=== PATIENT | male | born 1965 | race Caucasian/White ===

== ENCOUNTER 2017-05-09 17:44 | Emergency (ER) | payer MEDICAID ==
[~2017-05-09] VITALS: Ht 182.9 cm; Wt 84.4 kg
[2017-05-09 18:00] VITALS: BP 146/98
[2017-05-09] MEDS ORDERED: BACITRACIN TOP OINT 1 UD PKG TOP ONE (21:30)
[2017-05-09] MEDS ORDERED: LIDOCAINE 1% HCL (LOCAL ANESTH.) INJ 20ML MDV IJ ONE (21:30)
[2017-05-09] MEDS ORDERED: TETANUS-DIPTH-ACEL PERTUSSIS 0.5ML SYRG IM ONE (21:30)
[2017-05-09] MEDS ORDERED: HYDROcodone-ACET 10/325MG TAB PO ONE (22:15)
== END 2017-05-09 23:26 | disposition home or self-care (01) ==
LOC: ER 17:44
DX: S01.01XA Laceration without foreign body of scalp, initial encounter (principal); S00.93XA Contusion of unspecified part of head, initial encounter; Z88.0 Allergy status to penicillin; V27.4XXA Motorcycle driver injured in collision with fixed or stationary object in traffic accident, initial encounter; Y93.89 Activity, other specified; Y99.8 Other external cause status; Y92.410 Unspecified street and highway as the place of occurrence of the external cause
CPT/HCPCS: 12004; 70450; 90471; 90715; 99284; J2001

== ENCOUNTER 2019-05-01 20:53 | Inpatient (IN) | payer MEDICAID ==
[~2019-05-01] VITALS: Ht 182.9 cm; Wt 73.7 kg
[2019-05-01] MEDS ORDERED: SODIUM CHLORIDE 0.9% 1,000 ML IV ONE ×2 (21:26→22:15)
[2019-05-01] MEDS ORDERED: InsuLIN REG 1unit/0.01ml Soln (100units/ml) IV ONE (22:15)
[2019-05-01 22:19] LABS: Basophils # (auto) 0 uL; Basophils % (auto) 0.4 % (0.0-2.0); Eosinophils # (auto) 0.1 uL; Eosinophils % (auto) 0.7 % (0.0-7.0); Hematocrit 42.6 % (41.0-53.0); Hemoglobin 14.8 g/dL (13.5-17.5); Lymphocytes # (auto) 1.1 uL; Lymphocytes % (auto) 14.3 % (10.0-50.0); Mean Corpuscular Hemoglobin 30.9 pg (28.0-32.0); Mean Corpuscular Hgb Conc. 34.7 g/dL (32.0-36.0); Mean Corpuscular Volume 88.9 fL (80.0-100.0); Monocytes # (auto) 0.8 uL; Monocytes % (auto) 9.8 % (0.0-12.0); Neutrophils # (auto) 5.9 uL; Neutrophils % (auto) 74.8 % (37.0-80.0); Platelet Count (auto) 144 10^3/uL (140-450); Red Blood Cells 4.79 10^6/uL (4.5-5.90); Red Cell Distribution Width 12.6 % (11.8-14.3); White Blood Cell 7.9 10^3/uL (4.4-10.8)
[2019-05-01 22:25] LABS: Urine Bacteria NONE SEEN /hpf (None Seen); Urine Blood Negative /uL (Negative); Urine Specific Gravity 1.033 (1.001-1.035); Urine WBC <1 /hpf (0 - 3)
[2019-05-01 22:33] LABS: Albumin 3.4 g/dL (3.4-5.0); Calcium 8.3 mg/dL (8.5-10.1); Potassium 4.1 mmol/L (3.5-5.1)
[2019-05-01 22:36] LABS: Bilirubin, Total 0.5 mg/dL (0.2-1.0); Total Protein 7.4 g/dL (6.4-8.2)
[2019-05-01 22:56] LABS: BUN/Creatinine Ratio 17.5
[2019-05-02] MEDS ORDERED: SODIUM CHLORIDE 0.9% 1,000 ML IV ONE ×2 (00:45→13:00)
[2019-05-02] MEDS ORDERED: ACETAMINOPHEN 500 MG TAB PO ONE (01:00)
[2019-05-02 01:44] LABS: Amylase 59 U/L (25-115); Blood Alcohol < 3.0 mg/dL (0-5); Lipase 403 U/L (73-393)
[2019-05-02] MEDS ORDERED: ONDANSETRON HCL 4 MG/2 ML VIAL IV PRN (06:45)
[2019-05-02] MEDS ORDERED: DEXTROSE (50%) 50ML SYRG IV PRN ×2 (06:45→12:30)
[2019-05-02] MEDS ORDERED: TEMAZEPAM 15 MG CAP PO PRN (06:45)
[2019-05-02] MEDS ORDERED: SODIUM CHLORIDE 0.9% 1,000 ML IV SCH (06:45)
[2019-05-02 07:09] LABS: Calcium 8.1 mg/dL (8.5-10.1); Potassium 3.7 mmol/L (3.5-5.1)
[2019-05-02 07:13] LABS: BUN/Creatinine Ratio 17.5
[2019-05-02] MEDS: ACCU-CHEK COMFORT CURVE STRIP VI SCH ×4 (08:00→21:37)
--- NOTE | 2019-05-02 09:15 | NUR ---
MS admit from ER JENY LAW admitted to tele/MS after SBAR received. Patient oriented to DEON RENNER RN primary RN, unit, room, bed, and unit policies regarding patient care and visiting hours. Patient weighed by bedscale and encouraged to call if they need something. All questions and concerns addressed, patient verbalized understanding.
[2019-05-02] MEDS ORDERED: GLIP5TAB12 PO (09:27)
[2019-05-02] MEDS ORDERED: INS7030I SC (09:27)
[2019-05-02] MEDS ORDERED: METF-370 PO (09:27)
[2019-05-02 09:30] VITALS: BP 149/91
[2019-05-02] MEDS: FAMOTIDINE 20 MG TAB PO SCH ×2 (09:40→21:37)
[2019-05-02] MEDS: InsuLIN REG 1unit/0.01ml Soln (100units/ml) SC SCH ×4 (09:40→21:37)
[2019-05-02] MEDS ORDERED: ASCORBIC ACID 500 MG TAB PO ONE (12:30)
[2019-05-02] MEDS ORDERED: LORATADINE 10 MG TAB PO ONE (12:30)
[2019-05-02] MEDS ORDERED: LOSARTAN POTASSIUM 25 MG TAB PO ONE (12:30)
[2019-05-02 13:00] VITALS: BP 142/82
[2019-05-02] MEDS ORDERED: LEVOFLOXACIN 750MG 150 ML IV ONE (13:45)
[2019-05-02 15:25] LABS: Alcohol, Urine < 3.0 mg/dL (0-5); Amphetamine Screen, Urine POSITIVE (NEGATIVE); Barbiturate Scree,Urine NEGATIVE (NEGATIVE); Benzodiazephine Screen, Urine NEGATIVE (NEGATIVE); Cannabinoid Screen, Urine NEGATIVE (NEGATIVE); Cocaine Screen, Urine NEGATIVE (NEGATIVE); Opiate Scree,Urine NEGATIVE (NEGATIVE); Phencyclidine Screen, Urine NEGATIVE (NEGATIVE)
[2019-05-02 15:39] LABS: Urine Bacteria NONE SEEN /hpf (None Seen); Urine Blood Negative /uL (Negative); Urine Specific Gravity 1.029 (1.001-1.035); Urine WBC 1 /hpf (0 - 3)
[2019-05-02] MEDS: ACETAMINOPHEN 325 MG TAB PO PRN (16:15)
--- NOTE | 2019-05-02 16:52 | NUR ---
PT AMA TO SMOKE PT SIGNED AMA TO SMOKE. PT EDUCATED ABOUT NEGATIVE OUTCOME CAUSED BY SMOKING. PT VERBALIZED UNDERSTANDING AND CONTINUED TO SIGN AMA. PT OFF UNIT TO SMOKE.
[2019-05-02 17:00] VITALS: BP 156/91
[2019-05-02] MEDS: glipiZIDE 5 MG TAB PO SCH (17:55)
[2019-05-02] MEDS: metFORMIN HYDROCHLORIDE 500 MG TAB PO SCH (17:55)
[2019-05-02] MEDS: INSULIN 70/30 1unit/0.01ml Susp (100units/ml) SC SCH (17:56)
--- NOTE | 2019-05-02 19:25 | NUR ---
Opening Shift Note Assumed care of patient, awake and alert. No S/S of distress/SOB or pain. Patient afebrile at the moment. Instructed on POC and to call for assist PRN, patient verbalizes understanding. Will continue to monitor for changes Q1hr and PRN.
[2019-05-02] MEDS: ASCORBIC ACID 500 MG TAB PO SCH (21:37)
[2019-05-02 22:00] VITALS: BP 139/78
[2019-05-03 05:00] VITALS: BP 140/83
[2019-05-03 05:16] LABS: BUN/Creatinine Ratio 17.4; Calcium 8.2 mg/dL (8.5-10.1); Potassium 3.5 mmol/L (3.5-5.1)
[2019-05-03] MEDS: InsuLIN REG 1unit/0.01ml Soln (100units/ml) SC SCH ×4 (06:26→21:53)
[2019-05-03] MEDS: ACCU-CHEK COMFORT CURVE STRIP VI SCH ×4 (06:26→21:53)
[2019-05-03] MEDS: glipiZIDE 5 MG TAB PO SCH ×2 (06:27→18:22)
[2019-05-03] MEDS: ACETAMINOPHEN 325 MG TAB PO PRN ×2 (06:28→18:55)
--- NOTE | 2019-05-03 06:30 | NUR ---
PATIENT C/O HEADACHE, RATING 6/10 AND DESCRIBING IT PRESSURE LIKE. WILL MEDICATE PER ORDER.
--- NOTE | 2019-05-03 07:40 | NUR ---
Patient in bed, awake, oriented x4. No acute distress noted. Patient is ambulatory.
[2019-05-03] MEDS: INSULIN 70/30 1unit/0.01ml Susp (100units/ml) SC SCH ×2 (08:10→18:22)
[2019-05-03] MEDS: metFORMIN HYDROCHLORIDE 500 MG TAB PO SCH ×2 (08:11→18:22)
[2019-05-03 08:15] VITALS: BP 140/88
--- NOTE | 2019-05-03 09:40 | NUR ---
Dr. Key came over. to discharge the patient tomorrow, Tuesday.
[2019-05-03] MEDS: LOSARTAN POTASSIUM 25 MG TAB PO SCH (09:51)
[2019-05-03] MEDS: ASCORBIC ACID 500 MG TAB PO SCH ×2 (09:51→21:53)
[2019-05-03] MEDS: LEVOFLOXACIN 750MG 150 ML IV SCH (09:51)
[2019-05-03] MEDS: LORATADINE 10 MG TAB PO SCH (09:51)
[2019-05-03] MEDS: FAMOTIDINE 20 MG TAB PO SCH ×2 (09:51→21:53)
[2019-05-03 13:00] VITALS: BP 120/71
[2019-05-03 17:13] VITALS: BP 137/81
--- NOTE | 2019-05-03 18:55 | NUR ---
Patient stated he has headache. Tylenol PO given for headache. Family member at bedside.
--- NOTE | 2019-05-03 19:26 | NUR ---
Opening Shift Note Assumed care of patient, awake and alert. No S/S of distress/SOB or pain. Instructed on POC and to call for assist PRN, will continue to monitor for changes Q1hr and PRN.
[2019-05-03 22:00] VITALS: BP 153/86
[2019-05-04 04:59] VITALS: BP 133/84
[2019-05-04] MEDS: ACCU-CHEK COMFORT CURVE STRIP VI SCH ×2 (06:35→11:30)
[2019-05-04] MEDS: glipiZIDE 5 MG TAB PO SCH (06:35)
[2019-05-04] MEDS: InsuLIN REG 1unit/0.01ml Soln (100units/ml) SC SCH ×2 (06:36→11:30)
[2019-05-04] MEDS: LEVOFLOXACIN 750MG 150 ML IV SCH (09:12)
[2019-05-04] MEDS: INSULIN 70/30 1unit/0.01ml Susp (100units/ml) SC SCH (09:13)
[2019-05-04] MEDS: LORATADINE 10 MG TAB PO SCH (09:14)
[2019-05-04] MEDS: FAMOTIDINE 20 MG TAB PO SCH (09:14)
[2019-05-04] MEDS: ASCORBIC ACID 500 MG TAB PO SCH (09:14)
[2019-05-04] MEDS: LOSARTAN POTASSIUM 25 MG TAB PO SCH (09:15)
[2019-05-04] MEDS: metFORMIN HYDROCHLORIDE 500 MG TAB PO SCH (09:17)
[2019-05-04 09:21] VITALS: BP 141/78
[2019-05-04] MEDS ORDERED: LOS25T PO (10:51)
[2019-05-04] MEDS ORDERED: GLIP5TAB12 PO (10:51)
[2019-05-04] MEDS ORDERED: METF500T PO (10:51)
[2019-05-04] MEDS ORDERED: LEVO-28 PO (10:55)
[2019-05-04 12:09] VITALS: BP 141/78
[2019-05-04 12:50] VITALS: BP 141/78
--- NOTE | 2019-05-04 13:10 | NUR ---
Discharge instructions given as ordered. Encourage to follow up with PMD as instructed. All questions and concerns addressed. Patient verbalized understanding. Medication reconciliation form completed and copy given to patient. IV removed with catheter intact, pressure dressing applied. Patient is ambulatory, steady gait noted, refused to be taken to vehicle via wheelchair, patient with all personal belongings, accompanied by family member. No distress noted at time of departure.
== END 2019-05-04 13:10 | disposition home or self-care (01) | DRG 139 ==
LOC: ER 20:53 → OVERFLOW 20:54 → WEST WING 05-02 08:55
PROVIDERS: ADMIT Nurse Practitioner; ATTEND Internal Medicine
DX: J18.9 Pneumonia, unspecified organism (principal); E11.65 Type 2 diabetes mellitus with hyperglycemia; R65.10 Systemic inflammatory response syndrome (SIRS) of non-infectious origin without acute organ dysfunction; I10 Essential (primary) hypertension; E86.0 Dehydration; F15.10 Other stimulant abuse, uncomplicated; F17.210 Nicotine dependence, cigarettes, uncomplicated; Z91.19 Patient's noncompliance with other medical treatment and regimen; Z83.3 Family history of diabetes mellitus; Z88.0 Allergy status to penicillin
CPT/HCPCS: 36415; 36600; 71046; 80048; 80053; 80307; 80320; 81001; 82010; 82150; 82805; 82962; 83036; 83690; 85025; 87040; 87804; 96361; 96374; G0378; J1815; J1956

== ENCOUNTER 2020-06-04 00:24 | Inpatient (IN) | payer MEDICAID ==
[~2020-06-04] VITALS: Ht 182.9 cm; Wt 69.5 kg
[~2020-06-04 00:24] MED LIST: GLIP5TAB12 PO; INS7030I SC; LEVO-28 PO; LOS25T PO; METF-370 PO; METF500T PO
[2020-06-04] MEDS ORDERED: SODIUM CHLORIDE 0.9% 2,000 ML IV ONE (01:00)
[2020-06-04] MEDS ORDERED: NALOXONE HCL 0.4 MG/ML VIAL IV ONE (01:00)
[2020-06-04 01:29] LABS: Basophils # (auto) 0 10 ^3/uL (0-0.2); Basophils % (auto) 0.4 % (0.0-2.0); Eosinophils # (auto) 0.1 10 ^3/uL (0-0.8); Hematocrit 48.2 % (41.0-53.0); Hemoglobin 16.6 g/dL (13.5-17.5); Lymphocytes # (auto) 1.6 10 ^3/uL (0.4-5.4); Lymphocytes % (auto) 25.2 % (10.0-50.0); Mean Corpuscular Hemoglobin 30.3 pg (28.0-32.0); Mean Corpuscular Hgb Conc. 34.4 g/dL (32.0-36.0); Mean Corpuscular Volume 88.1 fL (80.0-100.0); Monocytes # (auto) 0.5 10 ^3/uL (0-1.3); Monocytes % (auto) 7.8 % (0.0-12.0); Neutrophils # (auto) 4.1 10 ^3/uL (1.6-8.6); Neutrophils % (auto) 64.6 % (37.0-80.0); Nucleated Red Blood Cells % 0.2 %; Platelet Count (auto) 164 10^3/uL (140-450); Red Blood Cells 5.47 10^6/uL (4.5-5.90); Red Cell Distribution Width 12.8 % (11.8-14.3); White Blood Cell 6.3 10^3/uL (4.4-10.8)
[2020-06-04] MEDS ORDERED: InsuLIN REG 1unit/0.01ml Soln (100units/ml) IV ONE ×2 (01:30→05:00)
[2020-06-04 01:36] LABS: Urine Bacteria NONE SEEN /hpf (None Seen); Urine Blood Negative /uL (Negative); Urine Specific Gravity 1.033 (1.001-1.035); Urine WBC 1 /hpf (0 - 3)
[2020-06-04 02:03] LABS: Potassium 4.4 mmol/L (3.5-5.1)
[2020-06-04 02:13] LABS: BUN/Creatinine Ratio 18.6; Bilirubin, Total 0.5 mg/dL (0.2-1.0); Calcium 9.6 mg/dL (8.5-10.1); Total Protein 8.1 g/dL (6.4-8.2)
[2020-06-04 02:14] LABS: Cannabinoid Screen, Urine NEGATIVE (NEGATIVE); Phencyclidine Screen, Urine NEGATIVE (NEGATIVE)
[2020-06-04 02:26] LABS: Alcohol, Urine < 3.0 mg/dL (0-10); Amphetamine Screen, Urine POSITIVE (NEGATIVE); Barbiturate Scree,Urine NEGATIVE (NEGATIVE); Benzodiazephine Screen, Urine NEGATIVE (NEGATIVE); Cocaine Screen, Urine NEGATIVE (NEGATIVE); Opiate Scree,Urine NEGATIVE (NEGATIVE)
[2020-06-04] MEDS ORDERED: DEXTROSE (50%) 50ML SYRG IV PRN ×2 (02:45→09:00)
[2020-06-04] MEDS ORDERED: INSULIN LANTUS (GLARGINE) 1 /0.01ml (100units/ml) SC ONE (02:45)
[2020-06-04] MEDS ORDERED: InsuLIN R (HUMAN) 100 UNITS in SODIUM CHL 0.9% 99 ML IV SCH (02:45)
[2020-06-04] MEDS: ACCU-CHEK COMFORT CURVE STRIP VI SCH ×8 (03:12→21:05)
[2020-06-04] MEDS ORDERED: NALOXONE HCL 1MG/ML 2ML SYRINGE ONE (04:25)
[2020-06-04] MEDS ORDERED: NALOXONE HCL 1MG/ML 2ML SYRINGE IV ONE (04:30)
[2020-06-04] MEDS ORDERED: MORPHINE SULF INJ 2 MG/ML SYRINGE 1ML IV PRN (09:00)
[2020-06-04] MEDS ORDERED: NITROGLYCERIN 0.4 MG SL TAB SL PRN (09:00)
[2020-06-04] MEDS: SODIUM CHLORIDE 0.9% 1,000 ML IV SCH ×2 (09:23→16:42)
[2020-06-04] MEDS: MULTIPLE VITAMIN TAB PO SCH (09:31)
[2020-06-04] MEDS: THIAMINE HCL 100 MG TAB PO SCH (09:31)
[2020-06-04 10:26] LABS: Calcium 7.9 mg/dL (8.5-10.1); Magnesium 2.1 mg/dL (1.6-2.6); Potassium 3.9 mmol/L (3.5-5.1)
[2020-06-04 10:29] LABS: BUN/Creatinine Ratio 24.6; Phosphorus 2.9 mg/dL (2.5-4.90)
[2020-06-04 10:34] LABS: Folate (Folic Acid) 13.76 ng/mL (5.38-24)
[2020-06-04] MEDS ORDERED: LOSA25TA38 PO (10:46)
[2020-06-04] MEDS ORDERED: METF-929 PO ×2 (10:46→16:29)
[2020-06-04] MEDS ORDERED: GLIP10TA9 PO (10:46)
[2020-06-04] MEDS ORDERED: PIOG1TAB36 PO (10:46)
[2020-06-04] MEDS: InsuLIN REG 1unit/0.01ml Soln (100units/ml) SC SCH ×3 (12:25→21:05)
[2020-06-04] MEDS ORDERED: GLIP5TAB12 PO (16:29)
[2020-06-04] MEDS ORDERED: INSREG3 SC (16:29)
--- NOTE | 2020-06-04 16:40 | NUR ---
MS admit from ER JENY LAW admitted to tele/MS after SBAR received. Patient oriented to Rupali Bustamante, primary RN, unit, room, bed, and unit policies regarding patient care and visiting hours. Patient weighed by bedscale and encouraged to call if they need something. All questions and concerns addressed, patient verbalized understanding. Note:
[2020-06-04] MEDS ORDERED: INFLUENZA QUAD 2020-2021 0.5 ML SYRG IM ONE (16:45)
[2020-06-04 17:00] VITALS: BP 133/91
[2020-06-04 22:00] VITALS: BP 143/89
[2020-06-05] MEDS: InsuLIN REG 1unit/0.01ml Soln (100units/ml) SC SCH ×7 (00:08→23:53)
[2020-06-05] MEDS: ACCU-CHEK COMFORT CURVE STRIP VI SCH ×7 (00:09→23:53)
[2020-06-05] MEDS: SODIUM CHLORIDE 0.9% 1,000 ML IV SCH ×3 (01:00→17:54)
[2020-06-05 05:10] VITALS: BP 136/85
--- NOTE | 2020-06-05 07:31 | NUR ---
ASSUMED CARE OF PATIENT AWAKE AND ALERT. RESPIRATIONS EVEN AND UNLABORED AT THIS TIME. UPDATED PATIENT ON POC AND TO CALL FOR ASSISTANCE IF NEEDED. HOB ELEVATED AT LEAST 30 DEGREES, BED LOCKED IN LOWEST POSITION AND CALL LIGHT IS WITHIN REACH. WILL CONTINUE TO MONITOR.
--- NOTE | 2020-06-05 07:47 | NUR ---
END OF SHIFT NOTES WILL ENDORSE CARE TO DAY SHIFT RN. PT A0X4, NO S/S OF DISTRESS OR SOB
[2020-06-05 09:00] VITALS: BP 136/79
--- NOTE | 2020-06-05 09:40 | NUR ---
spoke with dr olson. Dr. olson verbalized that he put in orders for potassium as well as metformin for this patient. continue care.
[2020-06-05 09:43] LABS: Basophils # (auto) 0 10 ^3/uL (0-0.2); Basophils % (auto) 0.5 % (0.0-2.0); Eosinophils # (auto) 0.1 10 ^3/uL (0-0.8); Eosinophils % (auto) 1.9 % (0.0-7.0); Hematocrit 41.4 % (41.0-53.0); Hemoglobin 14.2 g/dL (13.5-17.5); Lymphocytes # (auto) 0.9 10 ^3/uL (0.4-5.4); Lymphocytes % (auto) 14.5 % (10.0-50.0); Mean Corpuscular Hemoglobin 30.3 pg (28.0-32.0); Mean Corpuscular Hgb Conc. 34.4 g/dL (32.0-36.0); Mean Corpuscular Volume 87.8 fL (80.0-100.0); Monocytes # (auto) 0.3 10 ^3/uL (0-1.3); Monocytes % (auto) 5.2 % (0.0-12.0); Neutrophils # (auto) 5.1 10 ^3/uL (1.6-8.6); Neutrophils % (auto) 77.9 % (37.0-80.0); Platelet Count (auto) 147 10^3/uL (140-450); Red Blood Cells 4.71 10^6/uL (4.5-5.90); Red Cell Distribution Width 12.7 % (11.8-14.3); White Blood Cell 6.5 10^3/uL (4.4-10.8)
[2020-06-05 09:59] LABS: Albumin 2.6 g/dL (3.4-5.0); Calcium 7.8 mg/dL (8.5-10.1); Potassium 3.8 mmol/L (3.5-5.1)
[2020-06-05 10:02] LABS: BUN/Creatinine Ratio 21.6; Bilirubin, Total 0.4 mg/dL (0.2-1.0); Total Protein 5.6 g/dL (6.4-8.2)
[2020-06-05] MEDS: THIAMINE HCL 100 MG TAB PO SCH (10:33)
[2020-06-05] MEDS: MULTIPLE VITAMIN TAB PO SCH (10:34)
[2020-06-05] MEDS: INSULIN LANTUS (GLARGINE) 1 /0.01ml (100units/ml) SC SCH (10:37)
--- NOTE | 2020-06-05 12:01 | NUR ---
DR MENDES PAGED REGARDING ORDER CLARIFICATION OF POTASSIUM ORDER. AWAITING CALL BACK.
--- NOTE | 2020-06-05 12:25 | NUR ---
DR MENDES CALLED BACK. VERBALIZED THAT HE IS AWARE OF THE POTASSIUM LEVEL AND THAT HE STILL WANTS THE ORDER FOR POTASSIUM.
[2020-06-05] MEDS ORDERED: POTASSIUM CHLORIDE 40 MEQ, LIDOCAINE 1% (LOCAL ANESTH.) 4 ML in SODIUM CHL 0.9% 250 ML IV ONE (12:30)
[2020-06-05 13:00] VITALS: BP 125/73
--- NOTE | 2020-06-05 14:04 | NUR ---
TORRES DISCONTINUED. PATIENT TOLERATED WELL. CONTINUE CARE.
--- NOTE | 2020-06-05 14:21 | NUR ---
D/C Planning Per social service consult for meth use. Patient accepted resources. Patient is a 54-year-old male who is alert and oriented. Prior to admission patient lived with his girlfriend Sylvia. Patient states he has been using meth for several years and has been trying to stop but it has not been easy. Patient will return home to his prior living arrangements post discharge and Sylvia will transport him home. Patient verbalize understanding d/c plan. Addendum: 06/05/20 at 1424 by KATE HERR Amended: Links added.
[2020-06-05 17:05] VITALS: BP 129/82
[2020-06-05] MEDS: metFORMIN HYDROCHLORIDE 500 MG TAB PO SCH (18:09)
--- NOTE | 2020-06-05 19:21 | NUR ---
ENDORSED CARE TO NOC SHIFT RN
--- NOTE | 2020-06-05 19:35 | NUR ---
Opening Shift Note Received report from Syd GUPTA. Assumed care of patient, awake and alert. No S/S of distress/SOB or pain. Patient states he already void after removal of Rebollar catheter. Instructed on POC and to call for assist PRN, will continue to monitor for changes Q1hr and PRN.
[2020-06-05 21:41] VITALS: BP 139/77
[2020-06-06] MEDS: SODIUM CHLORIDE 0.9% 1,000 ML IV SCH ×2 (01:40→10:22)
[2020-06-06] MEDS: ACCU-CHEK COMFORT CURVE STRIP VI SCH ×3 (04:02→12:26)
[2020-06-06] MEDS: InsuLIN REG 1unit/0.01ml Soln (100units/ml) SC SCH ×3 (04:03→12:28)
[2020-06-06 05:16] VITALS: BP 147/87
[2020-06-06 06:08] LABS: Albumin 2.7 g/dL (3.4-5.0); Calcium 8.2 mg/dL (8.5-10.1)
[2020-06-06 06:12] LABS: BUN/Creatinine Ratio 18.8; Bilirubin, Total 0.5 mg/dL (0.2-1.0); Total Protein 5.8 g/dL (6.4-8.2)
[2020-06-06] MEDS ORDERED: INFLUENZA QUAD 2020-2021 0.5 ML SYRG IM ONE (08:07)
[2020-06-06] MEDS: metFORMIN HYDROCHLORIDE 500 MG TAB PO SCH (08:13)
[2020-06-06] MEDS: MULTIPLE VITAMIN TAB PO SCH (08:14)
[2020-06-06] MEDS: THIAMINE HCL 100 MG TAB PO SCH (08:15)
--- NOTE | 2020-06-06 08:21 | NUR ---
OPENING SHIFT NOTE: PATIENT RESTING IN BED FINISHED BREAKFAST. A/OX4, UPDATED ON PLAN OF CARE. INSTRUCTED ON DIABETES IMPORTANCE OF GLUCOSE MONITORING AT HOME. EDUCATED PATIENT ON METFORMIN AND INSULIN. PATIENT VERBALIZED UNDERSTANDING. RESPIRATIONS EVEN AND UNLABORED. AMA TO SMOKE, EDUCATED ON TIME FRAME. WILL CONTINUE TO MONITOR.
[2020-06-06 09:00] VITALS: BP 131/78
[2020-06-06] MEDS: INSULIN LANTUS (GLARGINE) 1 /0.01ml (100units/ml) SC SCH (10:22)
--- NOTE | 2020-06-06 14:30 | NUR ---
MD MENDES ROUNDING.
--- NOTE | 2020-06-06 15:29 | NUR ---
DISCHARGE: PATIENT GIVEN ALL EDUCATION MATERIALS. VERBALIZED UNDERSTANDING AND TEACHING. IV REMOVED, MANUAL PRESSURE APPLIED. PATIENT ABLE TO AMBULATE TO PRIVATE [facility]O WITH ALL BELONGINGS WITHOUT INCIDENCE.
== END 2020-06-06 15:31 | disposition home or self-care (01) | DRG 420 ==
LOC: EDBD 00:24 → ER 00:29 → OVERFLOW 00:30 → WEST WING 16:02
PROVIDERS: ADMIT Nurse Practitioner Acute Care; ATTEND Internal Medicine
DX: E11.65 Type 2 diabetes mellitus with hyperglycemia (principal); G93.41 Metabolic encephalopathy; E86.0 Dehydration; F15.10 Other stimulant abuse, uncomplicated; Z91.19 Patient's noncompliance with other medical treatment and regimen; E44.0 Moderate protein-calorie malnutrition; Z83.3 Family history of diabetes mellitus; Z91.14 Patient's other noncompliance with medication regimen; Z79.4 Long term (current) use of insulin; Z88.0 Allergy status to penicillin; F17.210 Nicotine dependence, cigarettes, uncomplicated; E88.09 Other disorders of plasma-protein metabolism, not elsewhere classified
CPT/HCPCS: 36415; 36600; 70450; 71045; 80048; 80053; 80307; 81001; 82010; 82607; 82746; 82805; 82962; 83036; 83735; 84100; 84425; 84443; 85025; 87040; 93005; 96361; 96374; 96375; 96376; G0378; J1815; J2001

== ENCOUNTER 2022-06-12 10:57 | Inpatient (IN) | payer MEDICAID ==
[~2022-06-12] VITALS: Ht 182.9 cm; Wt 78.4 kg
[~2022-06-12 10:57] MED LIST changes: +GABA300C10 PO; -INS7030I SC; +INSREG3 SC; +INSU0.5M33; -LEVO-28 PO; -LOS25T PO; -METF-370 PO; +METF-869 PO; +METF-929 PO; -METF500T PO
[2022-06-12 12:58] LABS: Basophils # (auto) 0 10 ^3/uL (0-0.2); Basophils % (auto) 0.4 % (0.0-2.0); Eosinophils # (auto) 0.2 10 ^3/uL (0-0.8); Eosinophils % (auto) 1.5 % (0.0-7.0); Hematocrit 42.8 % (41.0-53.0); Hemoglobin 14.7 g/dL (13.5-17.5); Lymphocytes % (auto) 10.1 % (10.0-50.0); Mean Corpuscular Hemoglobin 29.2 pg (28.0-32.0); Mean Corpuscular Hgb Conc. 34.5 g/dL (32.0-36.0); Mean Corpuscular Volume 84.7 fL (80.0-100.0); Monocytes % (auto) 10.3 % (0.0-12.0); Neutrophils # (auto) 7.7 10 ^3/uL (1.6-8.6); Neutrophils % (auto) 77.7 % (37.0-80.0); Nucleated Red Blood Cells % 0.1 %; Red Blood Cells 5.05 10^6/uL (4.5-5.90); White Blood Cell 9.9 10^3/uL (4.4-10.8)
[2022-06-12 13:23] LABS: Albumin 3.2 g/dL (3.4-5.0); Anion Gap 10 (5-15); Blood Alcohol < 3.0 mg/dL (0-5); Blood Urea Nitrogen 24 mg/dL (7-18); Calcium 8.9 mg/dL (8.5-10.1); Carbon Dioxide 25 mmol/L (21-32); Chloride 88 mmol/L (98-107); Potassium 4.8 mmol/L (3.5-5.1); Sodium 123 mmol/L (136-145)
[2022-06-12] MEDS ORDERED: PIPERACILLIN-TAZOB 3.375GM 100 ML IV ONE (13:30)
[2022-06-12 13:34] LABS: Alanine Aminotransferase 53 U/L (16-61); Alkaline Phosphatase 172 U/L (45-117); Aspartate Aminotransferase 32 U/L (15-37); BUN/Creatinine Ratio 19.7; Bilirubin, Total 0.4 mg/dL (0.2-1.0); CRP High Sensitivity 1.32 mg/dL (< 0.3); GFR African American 79 mL/min; GFR Non-African American 65 mL/min; Total Protein 7.8 g/dL (6.4-8.2)
[2022-06-12 13:42] LABS: Glucose 686 mg/dL (74-106)
[2022-06-12] MEDS ORDERED: VANCOMYCIN 1GM/250ML 250 ML IV ONE (13:45)
[2022-06-12] MEDS ORDERED: InsuLIN REG 1unit/0.01ml Soln (100units/ml) IV ONE (13:45)
[2022-06-12] MEDS ORDERED: SODIUM CHLORIDE 0.9% 1,000 ML IV ONE ×2 (13:45)
[2022-06-12] MEDS ORDERED: CLINDAMYCIN 600MG IV 50 ML IV ONE (13:45)
[2022-06-12] MEDS ORDERED: VANCOMYCIN PER PHARMACY 0 MG IV SCH (15:00)
[2022-06-12] MEDS ORDERED: MORPHINE SULFATE INJ 2 MG/ml SYRG IV PRN ×2 (15:00)
[2022-06-12] MEDS ORDERED: DEXTROSE (50%) 50ML SYRG IV PRN (15:00)
[2022-06-12] MEDS ORDERED: diphenhdrAMINE HCL 50 MG/1 ML VL IV PRN (15:00)
[2022-06-12] MEDS ORDERED: ACETAMINOPHEN 325 MG TAB PO PRN (15:00)
[2022-06-12] MEDS ORDERED: ONDANSETRON HCL 4 MG/2 ML VIAL IV PRN (15:00)
[2022-06-12] MEDS ORDERED: DOCUSATE SOD 100 MG CAP PO PRN (15:00)
[2022-06-12] MEDS ORDERED: NITROGLYCERIN 0.4 MG SL TAB SL PRN (15:00)
[2022-06-12 15:03] LABS: Alcohol, Urine < 3.0 mg/dL (0-10); Amphetamine Screen, Urine POSITIVE (NEGATIVE); Barbiturate Scree,Urine NEGATIVE (NEGATIVE); Benzodiazephine Screen, Urine NEGATIVE (NEGATIVE); Cannabinoid Screen, Urine NEGATIVE (NEGATIVE); Cocaine Screen, Urine NEGATIVE (NEGATIVE); Opiate Scree,Urine NEGATIVE (NEGATIVE); Phencyclidine Screen, Urine NEGATIVE (NEGATIVE)
[2022-06-12] MEDS: VANCOMYCIN 1GM/250ML 250 ML IV SCH (16:00)
[2022-06-12] MEDS: ACCU-CHEK COMFORT CURVE STRIP VI SCH ×2 (18:29→22:29)
[2022-06-12] MEDS: InsuLIN REG 1unit/0.01ml Soln (100units/ml) SC SCH ×2 (18:29→22:28)
[2022-06-12] MEDS ORDERED: GABA400C11 PO (18:56)
[2022-06-12] MEDS: SODIUM CHLORIDE 0.9% 1,000 ML IV SCH ×2 (19:31→23:20)
[2022-06-12 22:00] VITALS: BP 135/80
[2022-06-12] MEDS ORDERED: PIPERACILLIN-TAZOB 3.375GM 100 ML IV SCH (22:00)
[2022-06-12] MEDS: ASCORBIC ACID 500 MG TAB PO SCH (22:27)
[2022-06-12] MEDS: INSULIN LANTUS (GLARGINE) 1 /0.01ml (100units/ml) SC SCH (22:29)
[2022-06-13] VITALS (7 sets, daily range): BP systolic 121–157; BP diastolic 67–85
[2022-06-13] MEDS: SODIUM CHLORIDE 0.9% 1,000 ML IV SCH ×2 (01:25→16:02)
[2022-06-13] MEDS: VANCOMYCIN 1GM/250ML 250 ML IV SCH ×2 (03:58→16:46)
[2022-06-13] MEDS: ACCU-CHEK COMFORT CURVE STRIP VI SCH ×4 (06:30→22:00)
[2022-06-13] MEDS: INSULIN LANTUS (GLARGINE) 1 /0.01ml (100units/ml) SC SCH ×2 (06:31→22:39)
[2022-06-13] MEDS: InsuLIN REG 1unit/0.01ml Soln (100units/ml) SC SCH ×4 (06:32→22:38)
[2022-06-13] MEDS: HYDROcodone-ACET 5/325MG TAB PO PRN ×2 (07:04→20:42)
[2022-06-13 08:06] LABS: Basophils # (auto) 0 10 ^3/uL (0-0.2); Basophils % (auto) 0.4 % (0.0-2.0); Eosinophils # (auto) 0.3 10 ^3/uL (0-0.8); Eosinophils % (auto) 3.1 % (0.0-7.0); Hemoglobin 13.2 g/dL (13.5-17.5); Lymphocytes # (auto) 1.2 10 ^3/uL (0.4-5.4); Lymphocytes % (auto) 11.6 % (10.0-50.0); Mean Corpuscular Hemoglobin 29.5 pg (28.0-32.0); Mean Corpuscular Hgb Conc. 35.6 g/dL (32.0-36.0); Mean Corpuscular Volume 82.8 fL (80.0-100.0); Monocytes % (auto) 9.8 % (0.0-12.0); Neutrophils # (auto) 7.6 10 ^3/uL (1.6-8.6); Neutrophils % (auto) 75.1 % (37.0-80.0); Red Blood Cells 4.47 10^6/uL (4.5-5.90); Red Cell Distribution Width 13.3 % (11.8-14.3); White Blood Cell 10.1 10^3/uL (4.4-10.8)
[2022-06-13 08:34] LABS: Potassium 4.4 mmol/L (3.5-5.1)
[2022-06-13 08:42] LABS: Albumin 2.7 g/dL (3.4-5.0); BUN/Creatinine Ratio 23.9; Bilirubin, Total 0.8 mg/dL (0.2-1.0); Calcium 8.1 mg/dL (8.5-10.1); Total Protein 6.3 g/dL (6.4-8.2)
[2022-06-13] MEDS: ZINC SULFATE 220mg CAP or TAB PO SCH (09:53)
[2022-06-13] MEDS: ASCORBIC ACID 500 MG TAB PO SCH ×2 (09:53→22:36)
[2022-06-13] MEDS: PANTOPRAZOLE 40 MG TAB PO SCH (09:54)
[2022-06-13] MEDS: ENOXAPARIN SOD 40 MG/0.4 ML SYRINGE SC SCH (09:54)
[2022-06-13] MEDS: MULTIPLE VITAMIN TAB PO SCH (09:54)
[2022-06-13] MEDS: CLINDAMYCIN 600MG IV 50 ML IV SCH (22:36)
[2022-06-14] MEDS: VANCOMYCIN 1GM/250ML 250 ML IV SCH ×3 (04:00→21:53)
[2022-06-14 05:00] VITALS: BP 142/73
[2022-06-14] MEDS: SODIUM CHLORIDE 0.9% 1,000 ML IV SCH ×3 (05:15→17:13)
[2022-06-14] MEDS: CLINDAMYCIN 600MG IV 50 ML IV SCH ×2 (05:34→20:48)
[2022-06-14] MEDS: INSULIN LANTUS (GLARGINE) 1 /0.01ml (100units/ml) SC SCH ×2 (06:32→23:21)
[2022-06-14] MEDS: ACCU-CHEK COMFORT CURVE STRIP VI SCH ×4 (06:33→21:31)
[2022-06-14] MEDS: InsuLIN REG 1unit/0.01ml Soln (100units/ml) SC SCH ×4 (06:34→23:17)
[2022-06-14] MEDS: PIPERACILLIN-TAZOB 3.375GM 100 ML IV SCH ×3 (07:54→23:13)
[2022-06-14] MEDS: ENOXAPARIN SOD 40 MG/0.4 ML SYRINGE SC SCH (07:54)
[2022-06-14] MEDS: MULTIPLE VITAMIN TAB PO SCH (07:54)
[2022-06-14] MEDS: ASCORBIC ACID 500 MG TAB PO SCH ×2 (07:55→21:30)
[2022-06-14] MEDS: PANTOPRAZOLE 40 MG TAB PO SCH (07:55)
[2022-06-14] MEDS: ZINC SULFATE 220mg CAP or TAB PO SCH (07:55)
[2022-06-14 08:00] VITALS: BP 134/76
[2022-06-14 08:30] VITALS: BP 134/76
[2022-06-14 10:59] LABS: Basophils # (auto) 0.1 10 ^3/uL (0-0.2); Basophils % (auto) 0.7 % (0.0-2.0); Eosinophils # (auto) 0.3 10 ^3/uL (0-0.8); Eosinophils % (auto) 2.5 % (0.0-7.0); Hematocrit 43.3 % (41.0-53.0); Hemoglobin 14.3 g/dL (13.5-17.5); Lymphocytes # (auto) 1.2 10 ^3/uL (0.4-5.4); Lymphocytes % (auto) 11.4 % (10.0-50.0); Mean Corpuscular Hemoglobin 29.1 pg (28.0-32.0); Mean Corpuscular Volume 88.2 fL (80.0-100.0); Monocytes # (auto) 0.9 10 ^3/uL (0-1.3); Monocytes % (auto) 8.6 % (0.0-12.0); Neutrophils # (auto) 8.1 10 ^3/uL (1.6-8.6); Neutrophils % (auto) 76.8 % (37.0-80.0); Nucleated Red Blood Cells % 0.3 %; Red Blood Cells 4.91 10^6/uL (4.5-5.90); White Blood Cell 10.6 10^3/uL (4.4-10.8)
[2022-06-14 12:30] VITALS: BP 121/74
[2022-06-14] MEDS ORDERED: CLINDAMYCIN 600MG IV 50 ML IV SCH (15:00)
[2022-06-14 17:00] VITALS: BP 123/70
[2022-06-14 18:10] LABS: Albumin 2.6 g/dL (3.4-5.0); BUN/Creatinine Ratio 19.4; Bilirubin, Total 0.4 mg/dL (0.2-1.0); Calcium 8.3 mg/dL (8.5-10.1); Potassium 4.4 mmol/L (3.5-5.1); Total Protein 6.5 g/dL (6.4-8.2)
[2022-06-14] MEDS: HYDROcodone-ACET 5/325MG TAB PO PRN (20:55)
[2022-06-14 22:00] VITALS: BP 130/70
[2022-06-15] MEDS: SODIUM CHLORIDE 0.9% 1,000 ML IV SCH ×3 (01:20→17:48)
[2022-06-15] MEDS: CLINDAMYCIN 600MG IV 50 ML IV SCH ×3 (04:19→21:17)
[2022-06-15 05:00] VITALS: BP 125/74
[2022-06-15] MEDS: PIPERACILLIN-TAZOB 3.375GM 100 ML IV SCH ×3 (05:09→17:24)
[2022-06-15] MEDS: VANCOMYCIN 1GM/250ML 250 ML IV SCH ×2 (06:10→16:07)
[2022-06-15] MEDS: HYDROcodone-ACET 5/325MG TAB PO PRN (06:11)
[2022-06-15] MEDS: ACCU-CHEK COMFORT CURVE STRIP VI SCH ×4 (06:15→21:48)
[2022-06-15] MEDS: INSULIN LANTUS (GLARGINE) 1 /0.01ml (100units/ml) SC SCH ×2 (06:28→21:50)
[2022-06-15] MEDS: InsuLIN REG 1unit/0.01ml Soln (100units/ml) SC SCH ×4 (06:29→21:51)
[2022-06-15 08:10] VITALS: BP 124/74
[2022-06-15 09:00] VITALS: BP 124/74
[2022-06-15] MEDS: ZINC SULFATE 220mg CAP or TAB PO SCH (09:48)
[2022-06-15] MEDS: MULTIPLE VITAMIN TAB PO SCH (09:48)
[2022-06-15] MEDS: ASCORBIC ACID 500 MG TAB PO SCH ×2 (09:49→22:01)
[2022-06-15] MEDS: ENOXAPARIN SOD 40 MG/0.4 ML SYRINGE SC SCH (09:49)
[2022-06-15] MEDS: PANTOPRAZOLE 40 MG TAB PO SCH (09:49)
[2022-06-15 10:47] LABS: Basophils # (auto) 0.1 10 ^3/uL (0-0.2); Basophils % (auto) 0.7 % (0.0-2.0); Eosinophils # (auto) 0.3 10 ^3/uL (0-0.8); Eosinophils % (auto) 4.4 % (0.0-7.0); Hematocrit 39.9 % (41.0-53.0); Hemoglobin 13.6 g/dL (13.5-17.5); Lymphocytes # (auto) 1.1 10 ^3/uL (0.4-5.4); Lymphocytes % (auto) 14.4 % (10.0-50.0); Mean Corpuscular Hemoglobin 28.9 pg (28.0-32.0); Mean Corpuscular Hgb Conc. 34.1 g/dL (32.0-36.0); Mean Corpuscular Volume 84.7 fL (80.0-100.0); Monocytes # (auto) 0.6 10 ^3/uL (0-1.3); Monocytes % (auto) 8.2 % (0.0-12.0); Neutrophils # (auto) 5.7 10 ^3/uL (1.6-8.6); Neutrophils % (auto) 72.3 % (37.0-80.0); Nucleated Red Blood Cells % 0.1 %; Red Blood Cells 4.72 10^6/uL (4.5-5.90); White Blood Cell 7.8 10^3/uL (4.4-10.8)
[2022-06-15 11:12] LABS: Albumin 2.5 g/dL (3.4-5.0); Calcium 8.4 mg/dL (8.5-10.1); Potassium 4.2 mmol/L (3.5-5.1)
[2022-06-15 11:33] LABS: Bilirubin, Total 0.4 mg/dL (0.2-1.0); Total Protein 6.8 g/dL (6.4-8.2)
[2022-06-15 13:00] VITALS: BP 150/77
[2022-06-15 17:00] VITALS: BP 142/83
[2022-06-15] MEDS: Juven Fruit Punch Powder PACKET 28.8gm PO SCH (18:00)
[2022-06-15 22:00] VITALS: BP 142/75
[2022-06-16] VITALS (7 sets, daily range): BP systolic 126–140; BP diastolic 68–78
[2022-06-16] MEDS: HYDROcodone-ACET 5/325MG TAB PO PRN ×2 (00:13→21:53)
[2022-06-16] MEDS: PIPERACILLIN-TAZOB 3.375GM 100 ML IV SCH ×2 (00:14→07:31)
[2022-06-16] MEDS: SODIUM CHLORIDE 0.9% 1,000 ML IV SCH ×2 (02:20→12:13)
[2022-06-16] MEDS: VANCOMYCIN 1GM/250ML 250 ML IV SCH ×3 (02:22→23:05)
[2022-06-16] MEDS: CLINDAMYCIN 600MG IV 50 ML IV SCH ×3 (05:38→21:41)
[2022-06-16] MEDS: ACCU-CHEK COMFORT CURVE STRIP VI SCH ×4 (06:33→21:59)
[2022-06-16] MEDS: INSULIN LANTUS (GLARGINE) 1 /0.01ml (100units/ml) SC SCH ×2 (06:34→21:59)
[2022-06-16] MEDS: InsuLIN REG 1unit/0.01ml Soln (100units/ml) SC SCH ×4 (06:35→21:57)
[2022-06-16] MEDS: Juven Fruit Punch Powder PACKET 28.8gm PO SCH (08:00)
[2022-06-16] MEDS: PANTOPRAZOLE 40 MG TAB PO SCH (10:13)
[2022-06-16] MEDS: ZINC SULFATE 220mg CAP or TAB PO SCH (10:13)
[2022-06-16] MEDS: MULTIPLE VITAMIN TAB PO SCH (10:13)
[2022-06-16] MEDS: ASCORBIC ACID 500 MG TAB PO SCH ×2 (10:13→21:41)
[2022-06-16] MEDS: ENOXAPARIN SOD 40 MG/0.4 ML SYRINGE SC SCH (10:13)
[2022-06-17] MEDS: SODIUM CHLORIDE 0.9% 1,000 ML IV SCH ×4 (00:13→20:00)
[2022-06-17] MEDS: CLINDAMYCIN 600MG IV 50 ML IV SCH ×3 (04:29→23:20)
[2022-06-17] MEDS: InsuLIN REG 1unit/0.01ml Soln (100units/ml) SC SCH ×4 (06:56→23:45)
[2022-06-17] MEDS: ACCU-CHEK COMFORT CURVE STRIP VI SCH ×4 (07:10→23:47)
[2022-06-17] MEDS: Juven Fruit Punch Powder PACKET 28.8gm PO SCH ×2 (08:00→18:00)
[2022-06-17] MEDS: INSULIN LANTUS (GLARGINE) 1 /0.01ml (100units/ml) SC SCH ×2 (08:04→23:46)
[2022-06-17 09:00] VITALS: BP 148/82
[2022-06-17] MEDS: VANCOMYCIN 1GM/250ML 250 ML IV SCH ×2 (09:27→17:58)
[2022-06-17] MEDS: ASCORBIC ACID 500 MG TAB PO SCH ×2 (09:27→23:20)
[2022-06-17] MEDS: ENOXAPARIN SOD 40 MG/0.4 ML SYRINGE SC SCH (09:27)
[2022-06-17] MEDS: MULTIPLE VITAMIN TAB PO SCH (09:28)
[2022-06-17] MEDS: ZINC SULFATE 220mg CAP or TAB PO SCH (09:28)
[2022-06-17] MEDS: PANTOPRAZOLE 40 MG TAB PO SCH (09:30)
[2022-06-17] MEDS: cefTRIAXone 1GM/50ML D5W 50 ML IV SCH (11:08)
[2022-06-17] MEDS: HYDROcodone-ACET 5/325MG TAB PO PRN ×3 (11:46→23:20)
[2022-06-17 13:00] VITALS: BP 130/77
[2022-06-17 20:00] VITALS: BP 119/62
[2022-06-18] MEDS: VANCOMYCIN 1GM/250ML 250 ML IV SCH ×2 (04:20→14:46)
[2022-06-18] MEDS: SODIUM CHLORIDE 0.9% 1,000 ML IV SCH ×3 (04:20→21:00)
[2022-06-18 05:00] VITALS: BP 141/80
[2022-06-18] MEDS: CLINDAMYCIN 600MG IV 50 ML IV SCH ×3 (05:57→22:43)
[2022-06-18] MEDS: HYDROcodone-ACET 5/325MG TAB PO PRN ×3 (06:46→18:24)
[2022-06-18 06:49] LABS: Basophils # (auto) 0.1 10 ^3/uL (0-0.2); Basophils % (auto) 0.8 % (0.0-2.0); Eosinophils # (auto) 0.3 10 ^3/uL (0-0.8); Eosinophils % (auto) 4.3 % (0.0-7.0); Hematocrit 39.1 % (41.0-53.0); Hemoglobin 13.5 g/dL (13.5-17.5); Lymphocytes # (auto) 1.2 10 ^3/uL (0.4-5.4); Mean Corpuscular Hemoglobin 29.4 pg (28.0-32.0); Mean Corpuscular Hgb Conc. 34.5 g/dL (32.0-36.0); Mean Corpuscular Volume 85.4 fL (80.0-100.0); Monocytes # (auto) 0.6 10 ^3/uL (0-1.3); Monocytes % (auto) 8.5 % (0.0-12.0); Neutrophils # (auto) 5.3 10 ^3/uL (1.6-8.6); Neutrophils % (auto) 70.4 % (37.0-80.0); Nucleated Red Blood Cells % 0.1 %; Red Blood Cells 4.57 10^6/uL (4.5-5.90); Red Cell Distribution Width 13.1 % (11.8-14.3); White Blood Cell 7.6 10^3/uL (4.4-10.8)
[2022-06-18] MEDS: ACCU-CHEK COMFORT CURVE STRIP VI SCH ×4 (06:50→22:00)
[2022-06-18] MEDS: INSULIN LANTUS (GLARGINE) 1 /0.01ml (100units/ml) SC SCH ×2 (06:51→23:00)
[2022-06-18] MEDS: InsuLIN REG 1unit/0.01ml Soln (100units/ml) SC SCH ×4 (06:52→23:01)
[2022-06-18 07:04] LABS: Albumin 2.5 g/dL (3.4-5.0); Calcium 8.1 mg/dL (8.5-10.1); Potassium 4.4 mmol/L (3.5-5.1)
[2022-06-18 07:11] LABS: BUN/Creatinine Ratio 28.6; Bilirubin, Total 0.2 mg/dL (0.2-1.0); Total Protein 6.5 g/dL (6.4-8.2)
[2022-06-18] MEDS: Juven Fruit Punch Powder PACKET 28.8gm PO SCH ×2 (08:00→17:47)
[2022-06-18 09:00] VITALS: BP 139/74
[2022-06-18] MEDS: ZINC SULFATE 220mg CAP or TAB PO SCH (10:09)
[2022-06-18] MEDS: ASCORBIC ACID 500 MG TAB PO SCH ×2 (10:09→22:44)
[2022-06-18] MEDS: MULTIPLE VITAMIN TAB PO SCH (10:09)
[2022-06-18] MEDS: ENOXAPARIN SOD 40 MG/0.4 ML SYRINGE SC SCH (10:09)
[2022-06-18] MEDS: cefTRIAXone 1GM/50ML D5W 50 ML IV SCH (10:19)
[2022-06-18 12:49] VITALS: BP 137/76
[2022-06-18 17:22] VITALS: BP 132/66
[2022-06-18 22:00] VITALS: BP 145/72
[2022-06-19] MEDS: CLINDAMYCIN 600MG IV 50 ML IV SCH ×4 (04:25→21:46)
[2022-06-19 05:00] VITALS: BP 149/82
[2022-06-19] MEDS: SODIUM CHLORIDE 0.9% 1,000 ML IV SCH ×3 (05:20→20:38)
[2022-06-19] MEDS: INSULIN LANTUS (GLARGINE) 1 /0.01ml (100units/ml) SC SCH ×2 (06:08→22:17)
[2022-06-19] MEDS: ACCU-CHEK COMFORT CURVE STRIP VI SCH ×4 (06:08→22:07)
[2022-06-19] MEDS: InsuLIN REG 1unit/0.01ml Soln (100units/ml) SC SCH ×4 (06:08→22:17)
[2022-06-19 09:00] VITALS: BP 140/83
[2022-06-19] MEDS: cefTRIAXone 1GM/50ML D5W 50 ML IV SCH (10:09)
[2022-06-19] MEDS: ENOXAPARIN SOD 40 MG/0.4 ML SYRINGE SC SCH (10:10)
[2022-06-19] MEDS: ASCORBIC ACID 500 MG TAB PO SCH ×2 (10:10→22:18)
[2022-06-19] MEDS: ZINC SULFATE 220mg CAP or TAB PO SCH (10:10)
[2022-06-19] MEDS: MULTIPLE VITAMIN TAB PO SCH (10:10)
[2022-06-19] MEDS: HYDROcodone-ACET 5/325MG TAB PO PRN ×2 (10:11→19:21)
[2022-06-19] MEDS: Juven Fruit Punch Powder PACKET 28.8gm PO SCH ×2 (10:12→17:38)
[2022-06-19] MEDS: VANCOMYCIN 1GM/250ML 250 ML IV SCH ×3 (10:30→20:37)
[2022-06-19 13:00] VITALS: BP 132/79
[2022-06-19 16:58] VITALS: BP 133/75
[2022-06-19 22:07] VITALS: BP 128/77
[2022-06-20] MEDS: CLINDAMYCIN 600MG IV 50 ML IV SCH ×3 (04:19→22:07)
[2022-06-20 05:00] VITALS: BP 115/71
[2022-06-20] MEDS: VANCOMYCIN 1GM/250ML 250 ML IV SCH ×2 (05:58→16:20)
[2022-06-20] MEDS: ACCU-CHEK COMFORT CURVE STRIP VI SCH ×4 (06:15→22:44)
[2022-06-20] MEDS: InsuLIN REG 1unit/0.01ml Soln (100units/ml) SC SCH ×4 (06:16→22:52)
[2022-06-20] MEDS: INSULIN LANTUS (GLARGINE) 1 /0.01ml (100units/ml) SC SCH ×2 (06:17→22:51)
[2022-06-20] MEDS: SODIUM CHLORIDE 0.9% 1,000 ML IV SCH ×2 (06:20→12:24)
[2022-06-20] MEDS: Juven Fruit Punch Powder PACKET 28.8gm PO SCH ×2 (08:00→18:00)
[2022-06-20] MEDS: MULTIPLE VITAMIN TAB PO SCH (08:08)
[2022-06-20] MEDS: ASCORBIC ACID 500 MG TAB PO SCH ×2 (08:08→22:44)
[2022-06-20] MEDS: ZINC SULFATE 220mg CAP or TAB PO SCH (08:08)
[2022-06-20] MEDS: cefTRIAXone 1GM/50ML D5W 50 ML IV SCH (08:08)
[2022-06-20] MEDS: ENOXAPARIN SOD 40 MG/0.4 ML SYRINGE SC SCH (08:08)
[2022-06-20 09:35] VITALS: BP 127/72
[2022-06-20 13:00] VITALS: BP 129/71
[2022-06-20 17:00] VITALS: BP 122/66
[2022-06-20 22:51] VITALS: BP 135/73
[2022-06-21] MEDS: VANCOMYCIN 1GM/250ML 250 ML IV SCH ×3 (01:20→23:13)
[2022-06-21] MEDS: SODIUM CHLORIDE 0.9% 1,000 ML IV SCH ×3 (01:40→17:14)
[2022-06-21] MEDS: CLINDAMYCIN 600MG IV 50 ML IV SCH ×3 (05:18→21:38)
[2022-06-21 05:30] VITALS: BP 122/65
[2022-06-21] MEDS: INSULIN LANTUS (GLARGINE) 1 /0.01ml (100units/ml) SC SCH ×2 (06:43→21:43)
[2022-06-21] MEDS: InsuLIN REG 1unit/0.01ml Soln (100units/ml) SC SCH ×4 (06:43→21:50)
[2022-06-21] MEDS: ACCU-CHEK COMFORT CURVE STRIP VI SCH ×4 (06:44→21:58)
[2022-06-21] MEDS ORDERED: LIDOCAINE 1%HCL (LOCAL ANESTH) 10 ML MDV ONE (06:55)
[2022-06-21] MEDS ORDERED: BUPIVACAINE 0.25% INJ 50ML VIAL ONE (06:55)
[2022-06-21 07:12] LABS: Basophils # (auto) 0 10 ^3/uL (0-0.2); Basophils % (auto) 0.7 % (0.0-2.0); Eosinophils # (auto) 0.3 10 ^3/uL (0-0.8); Eosinophils % (auto) 4.1 % (0.0-7.0); Hematocrit 38.9 % (41.0-53.0); Hemoglobin 13.1 g/dL (13.5-17.5); Lymphocytes % (auto) 15.1 % (10.0-50.0); Mean Corpuscular Hemoglobin 28.8 pg (28.0-32.0); Mean Corpuscular Hgb Conc. 33.7 g/dL (32.0-36.0); Mean Corpuscular Volume 85.6 fL (80.0-100.0); Monocytes # (auto) 0.6 10 ^3/uL (0-1.3); Monocytes % (auto) 8.7 % (0.0-12.0); Neutrophils # (auto) 4.8 10 ^3/uL (1.6-8.6); Neutrophils % (auto) 71.4 % (37.0-80.0); Red Blood Cells 4.54 10^6/uL (4.5-5.90); Red Cell Distribution Width 13.2 % (11.8-14.3); White Blood Cell 6.8 10^3/uL (4.4-10.8)
[2022-06-21] MEDS ORDERED: MIDAZOLAM HCL 2MG/2ML 2ml VIAL (1mg/ml) ONE (07:27)
[2022-06-21] MEDS ORDERED: fentaNYL CITRATE 100 MCG/2 ML VL ONE (07:27)
[2022-06-21 07:28] LABS: INR 1.03 (0.9-1.15); Partial Thromboplastin Time 29.1 sec (24.6-33.4)
[2022-06-21] MEDS ORDERED: CLINDAMYCIN 600MG IV 50 ML IV ONE (07:30)
[2022-06-21] MEDS ORDERED: PROPOFOL 10 MG/ML 20 ML IV ONE (07:40)
[2022-06-21] MEDS ORDERED: ONDANSETRON HCL 4 MG/2 ML VIAL ONE (07:40)
[2022-06-21] MEDS ORDERED: LIDOCAINE 2% (LOCAL ANESTH.) PF 5ml SDV ONE (07:40)
[2022-06-21 08:43] LABS: Alanine Aminotransferase 89 U/L (16-61); Albumin 2.6 g/dL (3.4-5.0); Anion Gap 6 (5-15); Aspartate Aminotransferase 79 U/L (15-37); BUN/Creatinine Ratio 24.2; Blood Urea Nitrogen 15 mg/dL (7-18); Calcium 8.2 mg/dL (8.5-10.1); Carbon Dioxide 25 mmol/L (21-32); Chloride 109 mmol/L (98-107); GFR African American 173 mL/min; GFR Non-African American 143 mL/min; Glucose 158 mg/dL (74-106); Potassium 4.4 mmol/L (3.5-5.1); Sodium 140 mmol/L (136-145)
[2022-06-21 08:45] LABS: Alkaline Phosphatase 134 U/L (45-117); Bilirubin, Total 0.4 mg/dL (0.2-1.0); Total Protein 6.3 g/dL (6.4-8.2)
[2022-06-21] MEDS: ZINC SULFATE 220mg CAP or TAB PO SCH (09:01)
[2022-06-21] MEDS: Juven Fruit Punch Powder PACKET 28.8gm PO SCH ×2 (09:01→17:15)
[2022-06-21] MEDS: cefTRIAXone 1GM/50ML D5W 50 ML IV SCH (09:01)
[2022-06-21] MEDS: MULTIPLE VITAMIN TAB PO SCH (09:01)
[2022-06-21] MEDS: ASCORBIC ACID 500 MG TAB PO SCH ×2 (09:01→21:38)
[2022-06-21] MEDS: ENOXAPARIN SOD 40 MG/0.4 ML SYRINGE SC SCH (09:01)
[2022-06-21 13:57] VITALS: BP 129/72
[2022-06-21] MEDS ORDERED: NICOTINE 14 MG/24HR TOPICAL PATCH TD ONE (14:30)
[2022-06-21] MEDS: HYDROcodone-ACET 5/325MG TAB PO PRN ×2 (17:13→21:39)
[2022-06-21 17:38] VITALS: BP 157/90
[2022-06-21 22:00] VITALS: BP 150/85
[2022-06-21] MEDS ORDERED: LEVO-28 PO (22:26)
[2022-06-21] MEDS ORDERED: CLIN300C8 PO (22:28)
[2022-06-22] MEDS: SODIUM CHLORIDE 0.9% 1,000 ML IV SCH ×3 (00:11→16:40)
[2022-06-22 05:00] VITALS: BP 148/80
[2022-06-22] MEDS: INSULIN LANTUS (GLARGINE) 1 /0.01ml (100units/ml) SC SCH (06:05)
[2022-06-22] MEDS: ACCU-CHEK COMFORT CURVE STRIP VI SCH ×2 (06:12→12:03)
[2022-06-22] MEDS: HYDROcodone-ACET 5/325MG TAB PO PRN (06:12)
[2022-06-22] MEDS: InsuLIN REG 1unit/0.01ml Soln (100units/ml) SC SCH ×2 (06:13→12:04)
[2022-06-22] MEDS: MULTIPLE VITAMIN TAB PO SCH (08:00)
[2022-06-22] MEDS: Juven Fruit Punch Powder PACKET 28.8gm PO SCH (08:00)
[2022-06-22] MEDS: ZINC SULFATE 220mg CAP or TAB PO SCH (08:01)
[2022-06-22] MEDS: ENOXAPARIN SOD 40 MG/0.4 ML SYRINGE SC SCH (08:01)
[2022-06-22] MEDS: ASCORBIC ACID 500 MG TAB PO SCH (08:01)
[2022-06-22] MEDS: VANCOMYCIN 1GM/250ML 250 ML IV SCH (08:02)
[2022-06-22 09:02] VITALS: BP 107/75
[2022-06-22] MEDS: cefTRIAXone 1GM/50ML D5W 50 ML IV SCH (09:25)
[2022-06-22] MEDS ORDERED: NICOTINE 14 MG/24HR TOPICAL PATCH TD SCH (10:00)
[2022-06-22] MEDS ORDERED: DAKINS QUARTER STR 0.125% (NaHypochlorite) 473 ML TOPICAL SOL TOP SCH (10:00)
[2022-06-22 13:00] VITALS: BP 141/81
== END 2022-06-22 16:50 | disposition home health service (06) | DRG 380 ==
LOC: ER 11:03 → TELE 14:52 → TELE-CENTR 17:37
PROVIDERS: ADMIT Nurse Practitioner; ATTEND Nurse Practitioner
PROC: 0JBR0ZZ Excision of Left Foot Subcutaneous Tissue and Fascia, Open Approach (ICD-10-PCS; principal; 2022-06-21 07:36)
DX: E11.69 Type 2 diabetes mellitus with other specified complication (principal); L97.428 Non-pressure chronic ulcer of left heel and midfoot with other specified severity; N17.9 Acute kidney failure, unspecified; E11.621 Type 2 diabetes mellitus with foot ulcer; E87.1 Hypo-osmolality and hyponatremia; L03.116 Cellulitis of left lower limb; L02.612 Cutaneous abscess of left foot; F15.10 Other stimulant abuse, uncomplicated; E11.65 Type 2 diabetes mellitus with hyperglycemia; I10 Essential (primary) hypertension; M60.9 Myositis, unspecified; Z20.822 Contact with and (suspected) exposure to COVID-19; F17.210 Nicotine dependence, cigarettes, uncomplicated; E11.628 Type 2 diabetes mellitus with other skin complications; Z88.0 Allergy status to penicillin; Z83.3 Family history of diabetes mellitus; Z71.6 Tobacco abuse counseling
CPT/HCPCS: 36415; 71045; 73700; 73718; 80053; 80202; 80307; 80320; 82565; 82962; 83036; 83605; 85025; 85610; 85730; 86141; 87040; 87070; 87075; 87205; 87426; 93005; 96365; 96367; 96375; G0378; J0696; J1815; J2001; J2250; J2405; J2543; J2704; J3490

== ENCOUNTER 2022-07-26 20:48 | Inpatient (IN) | payer MEDICAID ==
[~2022-07-26] VITALS: Ht 182.9 cm; Wt 63.8 kg
[~2022-07-26 20:48] MED LIST changes: +CLIN300C8 PO; -GABA300C10 PO; +GABA400C11 PO; +LEVO-28 PO; -METF-929 PO
[2022-07-26] MEDS ORDERED: VANCOMYCIN 1GM/250ML 250 ML IV ONE (22:15)
[2022-07-26 22:48] LABS: Basophils # (auto) 0 10 ^3/uL (0-0.2); Basophils % (auto) 0.2 % (0.0-2.0); Eosinophils # (auto) 0.1 10 ^3/uL (0-0.8); Hematocrit 44.3 % (41.0-53.0); Hemoglobin 15.3 g/dL (13.5-17.5); Lymphocytes # (auto) 0.7 10 ^3/uL (0.4-5.4); Lymphocytes % (auto) 5.9 % (10.0-50.0); Mean Corpuscular Hemoglobin 28.8 pg (28.0-32.0); Mean Corpuscular Hgb Conc. 34.5 g/dL (32.0-36.0); Mean Corpuscular Volume 83.5 fL (80.0-100.0); Monocytes % (auto) 8.5 % (0.0-12.0); Neutrophils # (auto) 9.5 10 ^3/uL (1.6-8.6); Neutrophils % (auto) 84.4 % (37.0-80.0); Nucleated Red Blood Cells % 0.1 %; Red Blood Cells 5.31 10^6/uL (4.5-5.90); Red Cell Distribution Width 13.5 % (11.8-14.3); White Blood Cell 11.3 10^3/uL (4.4-10.8)
[2022-07-26 22:59] LABS: Albumin 3.2 g/dL (3.4-5.0); Calcium 8.7 mg/dL (8.5-10.1); Potassium 4.8 mmol/L (3.5-5.1)
[2022-07-26 23:07] LABS: Bilirubin, Total 0.8 mg/dL (0.2-1.0); CRP High Sensitivity 4.38 mg/dL (< 0.3)
[2022-07-26 23:52] LABS: BUN/Creatinine Ratio 13.2
[2022-07-27] MEDS ORDERED: MORPHINE SULFATE INJ 2 MG/ml SYRG IV PRN (02:15)
[2022-07-27] MEDS ORDERED: NITROGLYCERIN 0.4 MG SL TAB SL PRN (02:15)
[2022-07-27] MEDS ORDERED: ONDANSETRON HCL 4 MG/2 ML VIAL IV PRN (02:15)
[2022-07-27] MEDS: PIPERACILLIN-TAZOB 3.375GM 100 ML IV SCH ×2 (05:46→12:10)
[2022-07-27] MEDS: MORPHINE SULFATE INJ 2 MG/ml SYRG IV PRN ×2 (08:18→13:56)
[2022-07-27 08:19] LABS: Urine Bacteria NONE SEEN /hpf (None Seen); Urine Blood Negative /uL (Negative); Urine Specific Gravity 1.012 (1.001-1.035); Urine WBC <1 /hpf (0 - 3)
[2022-07-27 08:22] LABS: Basophils # (auto) 0.1 10 ^3/uL (0-0.2); Basophils % (auto) 0.5 % (0.0-2.0); Eosinophils # (auto) 0.2 10 ^3/uL (0-0.8); Eosinophils % (auto) 1.7 % (0.0-7.0); Hematocrit 39.2 % (41.0-53.0); Hemoglobin 13.6 g/dL (13.5-17.5); Lymphocytes # (auto) 0.7 10 ^3/uL (0.4-5.4); Lymphocytes % (auto) 6.7 % (10.0-50.0); Mean Corpuscular Hemoglobin 29.2 pg (28.0-32.0); Mean Corpuscular Hgb Conc. 34.8 g/dL (32.0-36.0); Mean Corpuscular Volume 83.7 fL (80.0-100.0); Monocytes # (auto) 1.2 10 ^3/uL (0-1.3); Monocytes % (auto) 11.1 % (0.0-12.0); Neutrophils # (auto) 8.9 10 ^3/uL (1.6-8.6); Nucleated Red Blood Cells % 0.2 %; Red Blood Cells 4.68 10^6/uL (4.5-5.90); White Blood Cell 11.2 10^3/uL (4.4-10.8)
[2022-07-27 08:31] LABS: Albumin 2.7 g/dL (3.4-5.0); Calcium 8.2 mg/dL (8.5-10.1); Potassium 4.5 mmol/L (3.5-5.1)
[2022-07-27 08:35] LABS: BUN/Creatinine Ratio 15.4; Bilirubin, Total 1.1 mg/dL (0.2-1.0); Total Protein 6.8 g/dL (6.4-8.2)
[2022-07-27] MEDS ORDERED: ENOXAPARIN SOD 40 MG/0.4 ML SYRINGE SC SCH (10:30)
[2022-07-27] MEDS ORDERED: PANTOPRAZOLE 40 MG TAB PO SCH (10:30)
[2022-07-27] MEDS ORDERED: DEXTROSE (50%) 50ML SYRG IV PRN (10:30)
[2022-07-27] MEDS: ACCU-CHEK COMFORT CURVE STRIP VI SCH ×2 (11:59→17:39)
[2022-07-27] MEDS: InsuLIN REG 1unit/0.01ml Soln (100units/ml) SC SCH ×2 (12:01→17:00)
[2022-07-27 16:02] VITALS: BP 136/78
[2022-07-27] MEDS ORDERED: InsuLIN REG 1unit/0.01ml Soln (100units/ml) SC SCH (22:00)
[2022-07-27] MEDS ORDERED: DAKINS QUARTER STR 0.125% (NaHypochlorite) 473 ML TOPICAL SOL TOP SCH (22:00)
== END 2022-07-27 18:03 | disposition left against medical advice (07) | DRG 380 ==
LOC: ER 20:49 → TELE 07-27 02:12
PROVIDERS: ADMIT Internal Medicine; ATTEND Internal Medicine
DX: E11.621 Type 2 diabetes mellitus with foot ulcer (principal); L97.519 Non-pressure chronic ulcer of other part of right foot with unspecified severity; L97.419 Non-pressure chronic ulcer of right heel and midfoot with unspecified severity; E44.0 Moderate protein-calorie malnutrition; E87.1 Hypo-osmolality and hyponatremia; E88.09 Other disorders of plasma-protein metabolism, not elsewhere classified; L03.116 Cellulitis of left lower limb; Z53.29 Procedure and treatment not carried out because of patient's decision for other reasons; Z20.822 Contact with and (suspected) exposure to COVID-19; E11.65 Type 2 diabetes mellitus with hyperglycemia; F15.90 Other stimulant use, unspecified, uncomplicated; F17.210 Nicotine dependence, cigarettes, uncomplicated; M60.9 Myositis, unspecified; Z83.3 Family history of diabetes mellitus; Z88.0 Allergy status to penicillin; Z68.1 Body mass index [BMI] 19.9 or less, adult
CPT/HCPCS: 36415; 73630; 80053; 81001; 82962; 83605; 85025; 85652; 86141; 87040; 87077; 87186; 87205; 87426; 96365; 96366; 96367; 96372; 96375; G0378; J1815; J2405; J2543

== ENCOUNTER 2023-11-23 10:53 | Inpatient (IN) | payer MEDICAID ==
[~2023-11-23] VITALS: Ht 182.9 cm; Wt 97.3 kg
[~2023-11-23 10:53] MED LIST changes: +CLIN1CAP70 PO; -CLIN300C8 PO; +GABA-1251 PO; -GABA400C11 PO; -GLIP5TAB12 PO; +GLIP5TAB21 PO; -LEVO-28 PO; +LEVO500T91 PO
[2023-11-23 12:21] LABS: Lymphocytes # (auto) 0.4 10 ^3/uL (0.4-5.4)
[2023-11-23 12:23] LABS: Basophils # (auto) 0 10 ^3/uL (0-0.2); Basophils % (auto) 0.4 % (0.0-2.0); Eosinophils # (auto) 0.1 10 ^3/uL (0-0.8); Eosinophils % (auto) 0.7 % (0.0-7.0); Hematocrit 31.1 % (41.0-53.0); Hemoglobin 9.7 g/dL (13.5-17.5); Lymphocytes % (auto) 4.2 % (10.0-50.0); Mean Corpuscular Hemoglobin 21.7 pg (28.0-32.0); Mean Corpuscular Hgb Conc. 31.1 g/dL (32.0-36.0); Mean Corpuscular Volume 69.8 fL (80.0-100.0); Monocytes # (auto) 0.7 10 ^3/uL (0-1.3); Monocytes % (auto) 6.7 % (0.0-12.0); Nucleated Red Blood Cells % 0.1 %; Red Blood Cells 4.45 10^6/uL (4.5-5.90); White Blood Cell 10.2 10^3/uL (4.4-10.8)
[2023-11-23 12:38] LABS: Alanine Aminotransferase 28 U/L (7-40); Albumin 3.8 g/dL (3.2-4.8); Alkaline Phosphatase 110 U/L (46-116); Anion Gap 7 (5-15); Aspartate Aminotransferase 41 U/L (13-40); BUN/Creatinine Ratio 18.3 (10.0-20.0); Bilirubin, Total 0.5 mg/dL (0.2-1.0); Blood Urea Nitrogen 26 mg/dL (9-23); Calcium 8.8 mg/dL (8.5-10.1); Carbon Dioxide 22 mmol/L (20-30); Chloride 100 mmol/L (98-107); Glucose 271 mg/dL (74-106); Potassium 4.7 mmol/L (3.5-5.1); Sodium 129 mmol/L (136-145); Total Protein 7.9 g/dL (5.7-8.2)
[2023-11-23] MEDS ORDERED: VANCOMYCIN PER PHARMACY 0 MG IV SCH (13:30)
[2023-11-23] MEDS ORDERED: VANCOMYCIN 1GM/200ML 200 ML IV ONE (13:45)
[2023-11-23] MEDS ORDERED: DEXTROSE (50%) 50ML SYRG IV PRN (15:00)
[2023-11-23] MEDS ORDERED: CLINDAMYCIN 300MG IV 50 ML IV ONE (15:30)
[2023-11-23] MEDS: CLINDAMYCIN 900MG IV 50 ML IV ONE (15:55)
[2023-11-23 16:10] LABS: Ferritin 15.5 ng/mL (22-322)
[2023-11-23 16:27] LABS: Folate (Folic Acid) 25.46 ng/mL (>5.38)
[2023-11-23] MEDS: ACCU-CHEK COMFORT CURVE STRIP VI SCH (17:40)
[2023-11-23] MEDS: InsuLIN REG 1unit/0.01ml Soln (100units/ml) SC SCH (17:42)
[2023-11-23] MEDS: SODIUM CHLORIDE 0.9% 1,000 ML IV ONE (18:11)
[2023-11-23] MEDS: VANCOMYCIN HCL 1000 MG VL IR ONE (18:11)
[2023-11-23 18:52] LABS: Erythrocyte Sedimentation Rate 35 mm/hr (0-20)
[2023-11-23] MEDS: ONDANSETRON HCL 4 MG/2 ML VIAL IV PRN (21:06)
[2023-11-23] MEDS: MORPHINE SULFATE INJ 2 MG/ml SYRG IV PRN (21:07)
[2023-11-23] MEDS: CLINDAMYCIN 300MG IV 50 ML IV SCH (22:58)
[2023-11-23] MEDS: GABAPENTIN 400 MG CAP PO SCH (22:58)
[2023-11-24 04:26] LABS: Basophils # (auto) 0.1 10 ^3/uL (0-0.2); Eosinophils # (auto) 0 10 ^3/uL (0-0.8); Lymphocytes # (auto) 0.4 10 ^3/uL (0.4-5.4); Monocytes # (auto) 1.4 10 ^3/uL (0-1.3); Red Cell Distribution Width 20.5 % (11.8-14.3)
[2023-11-24 04:28] LABS: Basophils % (auto) 0.4 % (0.0-2.0); Eosinophils % (auto) 0.3 % (0.0-7.0); Hematocrit 28.6 % (41.0-53.0); Lymphocytes % (auto) 2.3 % (10.0-50.0); Mean Corpuscular Hemoglobin 21.4 pg (28.0-32.0); Mean Corpuscular Hgb Conc. 31.4 g/dL (32.0-36.0); Mean Corpuscular Volume 68.2 fL (80.0-100.0); Monocytes % (auto) 8.9 % (0.0-12.0); Neutrophils # (auto) 13.5 10 ^3/uL (1.6-8.6); Neutrophils % (auto) 88.1 % (37.0-80.0); Red Blood Cells 4.19 10^6/uL (4.5-5.90); White Blood Cell 15.4 10^3/uL (4.4-10.8)
[2023-11-24 04:49] LABS: Alanine Aminotransferase 26 U/L (7-40); Albumin 3.4 g/dL (3.2-4.8); Alkaline Phosphatase 88 U/L (46-116); Anion Gap 6 (5-15); Aspartate Aminotransferase 25 U/L (13-40); BUN/Creatinine Ratio 20.3 (10.0-20.0); Calcium 8.5 mg/dL (8.7-10.4); Carbon Dioxide 21 mmol/L (20-30); Chloride 99 mmol/L (98-107); Glucose 205 mg/dL (74-106); Sodium 126 mmol/L (136-145)
[2023-11-24 04:50] LABS: Bilirubin, Total 0.5 mg/dL (0.2-1.0)
[2023-11-24 04:54] LABS: Blood Urea Nitrogen 36 mg/dL (9-23)
[2023-11-24 05:28] LABS: Anisocytosis Slight; Hypochromia Moderate; Platelet Estimate Adequate
[2023-11-24 05:29] LABS: Ovalocytes FEW; Stomatocytes Few
[2023-11-24 08:00] VITALS: PULSE 106; RESP 18; O2SAT 94
[2023-11-24] MEDS: amLODIPine BESYLATE 5 MG TAB PO SCH (10:32)
[2023-11-24] MEDS: SODIUM CHLORIDE 0.9% 1,000 ML IV SCH (13:33)
[2023-11-24 14:40] VITALS: PULSE 112; RESP 18
[2023-11-24] MEDS ORDERED: VANCOMYCIN PER PHARMACY 0 MG IV SCH (14:45)
[2023-11-24 14:56] VITALS: BP 118/70; PULSE 107; RESP 17; TEMP 100.3; O2SAT 95
[2023-11-24] MEDS: VANCOMYCIN 1GM/200ML 200 ML IV ONE (16:20)
[2023-11-24 17:00] VITALS: BP 142/87; PULSE 112; RESP 18; TEMP 98; O2SAT 96
[2023-11-24 20:00] VITALS: BP 124/77; PULSE 108; RESP 20; TEMP 98.4; O2SAT 92
[2023-11-24 21:00] VITALS: BP 124/77; PULSE 108; RESP 20; TEMP 98.4; O2SAT 92
[2023-11-25] VITALS (8 sets, daily range): BP systolic 110–123; BP diastolic 71–76; PULSE 89–99; RESP 18–20; TEMP 97.1–99; O2SAT 92–97
[2023-11-25 06:28] LABS: Basophils # (auto) 0 10 ^3/uL (0-0.2); Basophils % (auto) 0.4 % (0.0-2.0); Eosinophils # (auto) 0.1 10 ^3/uL (0-0.8); Eosinophils % (auto) 0.6 % (0.0-7.0); Hematocrit 26.6 % (41.0-53.0); Hemoglobin 8.4 g/dL (13.5-17.5); Lymphocytes # (auto) 0.5 10 ^3/uL (0.4-5.4); Lymphocytes % (auto) 5.3 % (10.0-50.0); Mean Corpuscular Hemoglobin 21.7 pg (28.0-32.0); Mean Corpuscular Hgb Conc. 31.5 g/dL (32.0-36.0); Mean Corpuscular Volume 68.8 fL (80.0-100.0); Monocytes # (auto) 1.1 10 ^3/uL (0-1.3); Monocytes % (auto) 12.6 % (0.0-12.0); Neutrophils % (auto) 81.1 % (37.0-80.0); Nucleated Red Blood Cells % 0.1 %; Red Blood Cells 3.86 10^6/uL (4.5-5.90); Red Cell Distribution Width 20.5 % (11.8-14.3); White Blood Cell 8.6 10^3/uL (4.4-10.8)
[2023-11-25 06:41] LABS: Anion Gap 7 (5-15); Carbon Dioxide 20 mmol/L (20-30); Chloride 96 mmol/L (98-107); Potassium 5.5 mmol/L (3.5-5.1); Sodium 123 mmol/L (136-145)
[2023-11-25 06:42] LABS: Calcium 8.2 mg/dL (8.7-10.4)
[2023-11-25 06:47] LABS: BUN/Creatinine Ratio 24.9 (10.0-20.0); Glucose 171 mg/dL (74-106)
[2023-11-25 06:49] LABS: Blood Urea Nitrogen 51 mg/dL (9-23)
[2023-11-25] MEDS ORDERED: VANCOMYCIN 1GM/200ML 200 ML IV SCH (08:00)
[2023-11-25] MEDS: ALBUTEROL SULF 2.5 MG/0.5ML(0.5%) NEB SOLN NEB ONE (11:56)
[2023-11-25] MEDS: SODIUM ZIRCONIUM CYCL 10 GM PAK PO ONE (14:36)
[2023-11-25] MEDS: SODIUM BICARB 8.4% 50Meq/50ml SYR INJ IV ONE (14:37)
[2023-11-25] MEDS: DEXTROSE (50%) 50ML SYRG IV ONE (14:37)
[2023-11-25] MEDS: DOCUSATE SOD 100 MG CAP PO PRN (14:37)
[2023-11-25] MEDS: FUROSEMIDE 20 MG/2 ML VIAL IV ONE (14:37)
[2023-11-25] MEDS: VANCOMYCIN 1GM/200ML 200 ML IV ONE (14:38)
[2023-11-25] MEDS: InsuLIN REG 1unit/0.01ml Soln (100units/ml) IV ONE (14:40)
[2023-11-26] VITALS (7 sets, daily range): BP systolic 115–162; BP diastolic 70–85; PULSE 85–97; RESP 16–20; TEMP 97.8–98.4; O2SAT 92–100
[2023-11-26 05:45] LABS: Eosinophils # (auto) 0.2 10 ^3/uL (0-0.8); Hemoglobin 8.2 g/dL (13.5-17.5); Lymphocytes # (auto) 0.7 10 ^3/uL (0.4-5.4); Nucleated Red Blood Cells % 0.1 %; White Blood Cell 8.3 10^3/uL (4.4-10.8)
[2023-11-26 05:50] LABS: Basophils # (auto) 0 10 ^3/uL (0-0.2); Basophils % (auto) 0.5 % (0.0-2.0); Hematocrit 25.8 % (41.0-53.0); Mean Corpuscular Hemoglobin 21.8 pg (28.0-32.0); Mean Corpuscular Volume 68.1 fL (80.0-100.0); Monocytes # (auto) 1.2 10 ^3/uL (0-1.3); Monocytes % (auto) 14.6 % (0.0-12.0); Neutrophils # (auto) 6.2 10 ^3/uL (1.6-8.6); Neutrophils % (auto) 74.9 % (37.0-80.0); Red Blood Cells 3.78 10^6/uL (4.5-5.90)
[2023-11-26 05:56] LABS: Chloride 98 mmol/L (98-107); Sodium 126 mmol/L (136-145)
[2023-11-26 05:57] LABS: Anion Gap 7 (5-15); Calcium 8.1 mg/dL (8.5-10.1); Carbon Dioxide 21 mmol/L (20-30)
[2023-11-26 06:02] LABS: BUN/Creatinine Ratio 26.8 (10.0-20.0); Blood Urea Nitrogen 55 mg/dL (9-23); Glucose 232 mg/dL (74-106)
[2023-11-26 06:30] LABS: Hypochromia Slight; Ovalocytes FEW; Platelet Estimate Adequate
[2023-11-26 08:06] LABS: Complement C3 126 mg/dL (82-167)
[2023-11-26] MEDS: VANCOMYCIN 1GM/200ML 200 ML IV ONE (19:03)
[2023-11-26] MEDS: hydrALAZINE HCL 20 MG/ML VL IV PRN (20:22)
[2023-11-26] MEDS: HYDROcodone-ACET 5/325MG TAB PO PRN (20:30)
[2023-11-27 07:23] LABS: Basophils # (auto) 0.1 10 ^3/uL (0-0.2); Eosinophils # (auto) 0.4 10 ^3/uL (0-0.8); Hemoglobin 8.8 g/dL (13.5-17.5); Lymphocytes # (auto) 0.8 10 ^3/uL (0.4-5.4); Mean Corpuscular Volume 72.3 fL (80.0-100.0)
[2023-11-27 07:25] LABS: Basophils % (auto) 0.9 % (0.0-2.0); Eosinophils % (auto) 4.8 % (0.0-7.0); Hematocrit 28.9 % (41.0-53.0); Lymphocytes % (auto) 9.4 % (10.0-50.0); Mean Corpuscular Hemoglobin 22.1 pg (28.0-32.0); Mean Corpuscular Hgb Conc. 30.5 g/dL (32.0-36.0); Monocytes % (auto) 12.4 % (0.0-12.0); Neutrophils # (auto) 5.8 10 ^3/uL (1.6-8.6); Neutrophils % (auto) 72.5 % (37.0-80.0); Nucleated Red Blood Cells % 0.1 %; Red Cell Distribution Width 20.1 % (11.8-14.3); White Blood Cell 8.1 10^3/uL (4.4-10.8)
[2023-11-27 07:38] LABS: Alanine Aminotransferase 16 U/L (7-40); Alkaline Phosphatase 69 U/L (46-116); Anion Gap 8 (5-15); BUN/Creatinine Ratio 30.1 (10.0-20.0); Blood Urea Nitrogen 55 mg/dL (9-23); Calcium 8.3 mg/dL (8.5-10.1); Carbon Dioxide 20 mmol/L (20-30); Chloride 101 mmol/L (98-107); Glucose 249 mg/dL (74-106); Potassium 4.7 mmol/L (3.5-5.1); Sodium 129 mmol/L (136-145)
[2023-11-27 07:39] LABS: Aspartate Aminotransferase 23 U/L (13-40); Bilirubin, Total 0.2 mg/dL (0.2-1.0); Total Protein 6.5 g/dL (5.7-8.2)
[2023-11-27 08:00] VITALS: BP 141/80; PULSE 83; PULSE 84; RESP 20; TEMP 97.6; O2SAT 95
[2023-11-27 08:49] VITALS: BP 141/80; PULSE 83; RESP 20; TEMP 97.6; O2SAT 95
[2023-11-27 12:10] VITALS: BP 147/84; PULSE 84; RESP 20; TEMP 97.7; O2SAT 94
[2023-11-27 16:44] VITALS: BP 135/82; PULSE 90; RESP 18; TEMP 97.4; O2SAT 90
[2023-11-27] MEDS: VANCOMYCIN 1GM/200ML 200 ML IV SCH (19:39)
[2023-11-27 20:00] VITALS: BP 143/89; PULSE 92; PULSE 93; RESP 18; TEMP 97.6; O2SAT 100
[2023-11-27 21:23] VITALS: BP 153/91; PULSE 95; RESP 17; TEMP 97.6; O2SAT 100
[2023-11-28 01:00] VITALS: BP 142/79; PULSE 90; RESP 18; TEMP 97.9; O2SAT 95
[2023-11-28 04:59] VITALS: BP 113/63; PULSE 92; RESP 17; TEMP 98.6; O2SAT 97
[2023-11-28 07:16] LABS: Alanine Aminotransferase 16 U/L (7-40); Alkaline Phosphatase 82 U/L (46-116); Anion Gap 6 (5-15); Aspartate Aminotransferase 24 U/L (13-40); BUN/Creatinine Ratio 39.6 (10.0-20.0); Bilirubin, Total 0.2 mg/dL (0.2-1.0); Blood Urea Nitrogen 59 mg/dL (9-23); Calcium 8.3 mg/dL (8.5-10.1); Carbon Dioxide 22 mmol/L (20-30); Chloride 104 mmol/L (98-107); Glucose 322 mg/dL (74-106); Potassium 4.5 mmol/L (3.5-5.1); Sodium 132 mmol/L (136-145); Total Protein 6.5 g/dL (5.7-8.2)
[2023-11-28 08:00] VITALS: PULSE 83; RESP 22; O2SAT 96
[2023-11-28 08:15] LABS: Urine Bacteria None Seen /hpf (None Seen)
[2023-11-28 08:20] LABS: Urine Blood TRACE /uL (Negative); Urine Clarity Clear (Clear); Urine Color Light-Yellow (Yellow); Urine Protein, UAD 1+ (Negative); Urine Specific Gravity 1.015 (1.001-1.035); Urine Urobilinogen Normal (Negative); Urine WBC 1 /hpf (0 - 3); Urine pH 5.5 (5.0-9.0)
[2023-11-28 09:00] VITALS: BP 150/88; PULSE 84; RESP 19; TEMP 97.6; O2SAT 97
[2023-11-28 09:18] LABS: Protein, Urine 89.9 mg/dL (0.0-11.9)
[2023-11-28 09:21] LABS: Creatinine, Urine 53.1 mg/dL (30.0-125.0); Urine Protein/Creatinine Ratio 1.69
[2023-11-28 09:23] LABS: Amphetamine Screen, Urine Neg (NEGATIVE); Barbiturate Scree,Urine Neg (NEGATIVE); Benzodiazephine Screen, Urine Neg (NEGATIVE); Cocaine Screen, Urine Neg (NEGATIVE)
[2023-11-28 09:24] LABS: Cannabinoid Screen, Urine Neg (NEGATIVE); Opiate Scree,Urine Neg (NEGATIVE); Phencyclidine Screen, Urine Neg (NEGATIVE)
[2023-11-28 09:46] LABS: Hepatitis B Surface Antigen Negative (Negative)
[2023-11-28 10:06] LABS: Hepatitis A Ab IgM Negative
[2023-11-28 10:07] LABS: Hepatitis B Core IgM Negative
[2023-11-28 10:27] LABS: Hepatitis C Antibody Reactive (Negative)
[2023-11-28] MEDS: FUROSEMIDE 40 MG/4 ML VIAL IV ONE (11:00)
[2023-11-28] MEDS: ETOMIDATE (2MG/ML) 20ML VIAL IV ONE (15:31)
[2023-11-28] MEDS: SUCCINYLCHOLINE CHLORIDE 20 MG/ML 10ML VIAL IV ONE (15:32)
[2023-11-28] MEDS: NALOXONE HCL 1MG/ML 2ML SYRINGE IV ONE (15:45)
[2023-11-28 16:11] LABS: Chloride 104 mmol/L (98-107); Potassium 5.4 mmol/L (3.5-5.1); Sodium 131 mmol/L (136-145)
[2023-11-28 16:12] LABS: Anion Gap 5 (5-15); Carbon Dioxide 22 mmol/L (20-30)
[2023-11-28 16:13] LABS: Calcium 8.5 mg/dL (8.5-10.1)
[2023-11-28 16:17] LABS: BUN/Creatinine Ratio 43.8 (10.0-20.0); Glucose 393 mg/dL (74-106)
[2023-11-28 16:23] LABS: Blood Urea Nitrogen 70 mg/dL (9-23)
[2023-11-28 16:24] LABS: Amphetamine Screen, Urine Neg (NEGATIVE); Barbiturate Scree,Urine Neg (NEGATIVE); Benzodiazephine Screen, Urine Neg (NEGATIVE); Cannabinoid Screen, Urine Neg (NEGATIVE); Cocaine Screen, Urine Neg (NEGATIVE); Opiate Scree,Urine Neg (NEGATIVE); Phencyclidine Screen, Urine Neg (NEGATIVE)
[2023-11-28 16:26] LABS: Basophils # (auto) 0.1 10 ^3/uL (0-0.2); Basophils % (auto) 0.6 % (0.0-2.0); Eosinophils # (auto) 0.1 10 ^3/uL (0-0.8); Eosinophils % (auto) 1.4 % (0.0-7.0); Hematocrit 29.9 % (41.0-53.0); Hemoglobin 9.2 g/dL (13.5-17.5); Lymphocytes % (auto) 10.2 % (10.0-50.0); Mean Corpuscular Hemoglobin 21.5 pg (28.0-32.0); Mean Corpuscular Hgb Conc. 30.9 g/dL (32.0-36.0); Mean Corpuscular Volume 69.5 fL (80.0-100.0); Monocytes # (auto) 0.9 10 ^3/uL (0-1.3); Monocytes % (auto) 9.7 % (0.0-12.0); Neutrophils # (auto) 7.3 10 ^3/uL (1.6-8.6); Neutrophils % (auto) 78.1 % (37.0-80.0); Nucleated Red Blood Cells % 0.3 %; Red Cell Distribution Width 19.9 % (11.8-14.3); White Blood Cell 9.4 10^3/uL (4.4-10.8)
[2023-11-28] MEDS: FUROSEMIDE 40 MG/4 ML VIAL IV SCH (17:51)
[2023-11-28 18:14] LABS: Urine Bacteria None Seen /hpf (None Seen)
[2023-11-28] MEDS ORDERED: NALOXONE HCL 1MG/ML 2ML SYRINGE IV ONE (19:17)
[2023-11-28 19:31] LABS: Urine Blood TRACE /uL (Negative); Urine Clarity Clear (Clear); Urine Color Light-Yellow (Yellow); Urine Protein, UAD 1+ (Negative); Urine Specific Gravity 1.013 (1.001-1.035); Urine Urobilinogen Normal (Negative); Urine WBC 1 /hpf (0 - 3)
[2023-11-28 19:47] LABS: Amphetamine Screen, Urine Neg (NEGATIVE)
[2023-11-28 19:48] LABS: Barbiturate Scree,Urine Neg (NEGATIVE); Benzodiazephine Screen, Urine Neg (NEGATIVE); Cannabinoid Screen, Urine Neg (NEGATIVE); Cocaine Screen, Urine Neg (NEGATIVE); Opiate Scree,Urine Neg (NEGATIVE); Phencyclidine Screen, Urine Neg (NEGATIVE)
[2023-11-28 20:00] VITALS: BP 157/89; PULSE 85; PULSE 91; RESP 23; TEMP 97.9; O2SAT 100; O2SAT 91
[2023-11-29] VITALS (22 sets, daily range): BP systolic 118–153; BP diastolic 57–91; PULSE 81–94; RESP 12–26; TEMP 97–98.9; O2SAT 91–100
[2023-11-29 05:14] LABS: Basophils # (auto) 0.1 10 ^3/uL (0-0.2); Basophils % (auto) 0.7 % (0.0-2.0); Eosinophils # (auto) 0.4 10 ^3/uL (0-0.8); Hematocrit 28.7 % (41.0-53.0); Hemoglobin 8.9 g/dL (13.5-17.5); Lymphocytes # (auto) 0.8 10 ^3/uL (0.4-5.4); Lymphocytes % (auto) 10.4 % (10.0-50.0); Mean Corpuscular Hemoglobin 21.5 pg (28.0-32.0); Mean Corpuscular Volume 69.4 fL (80.0-100.0); Monocytes % (auto) 11.9 % (0.0-12.0); Neutrophils # (auto) 5.9 10 ^3/uL (1.6-8.6); Nucleated Red Blood Cells % 0.1 %; Red Blood Cells 4.13 10^6/uL (4.5-5.90); White Blood Cell 8.1 10^3/uL (4.4-10.8)
[2023-11-29 05:16] LABS: Red Cell Distribution Width 20.1 % (11.8-14.3)
[2023-11-29 05:19] LABS: Alanine Aminotransferase 21 U/L (7-40); Alkaline Phosphatase 80 U/L (46-116); Anion Gap 5 (5-15); Aspartate Aminotransferase 26 U/L (13-40); Calcium 8.5 mg/dL (8.5-10.1); Carbon Dioxide 23 mmol/L (20-30); Chloride 107 mmol/L (98-107); Potassium 4.5 mmol/L (3.5-5.1); Sodium 135 mmol/L (136-145)
[2023-11-29 05:20] LABS: Bilirubin, Total 0.2 mg/dL (0.2-1.0); Total Protein 6.6 g/dL (5.7-8.2)
[2023-11-29 05:35] LABS: Blood Urea Nitrogen 50 mg/dL (9-23); Glucose 155 mg/dL (74-106)
[2023-11-29] MEDS: LACTULOSE 20Gm/30ML SOLN PO SCH (12:30)
[2023-11-29 16:29] LABS: INR 1.07 (0.9-1.15); Partial Thromboplastin Time 27.3 SEC (24.5-34.5); Prothrombin Time 11.3 sec (9.3-11.8)
[2023-11-29] MEDS: MUPIROCIN 2% OINT 15gm or 22gm FOR MRSA NARES EACHNOSTRI SCH (22:04)
[2023-11-30] VITALS (23 sets, daily range): BP systolic 118–167; BP diastolic 62–90; PULSE 79–95; RESP 13–25; TEMP 97.6–98.6; O2SAT 89–100
[2023-11-30 05:44] LABS: Eosinophils # (auto) 0.4 10 ^3/uL (0-0.8); Hemoglobin 8.8 g/dL (13.5-17.5); Mean Corpuscular Hemoglobin 21.5 pg (28.0-32.0); Neutrophils # (auto) 6.2 10 ^3/uL (1.6-8.6); Neutrophils % (auto) 75.8 % (37.0-80.0)
[2023-11-30 05:50] LABS: Basophils # (auto) 0.1 10 ^3/uL (0-0.2); Basophils % (auto) 0.7 % (0.0-2.0); Eosinophils % (auto) 5.1 % (0.0-7.0); Hematocrit 28.1 % (41.0-53.0); Lymphocytes # (auto) 0.7 10 ^3/uL (0.4-5.4); Lymphocytes % (auto) 8.8 % (10.0-50.0); Mean Corpuscular Hgb Conc. 31.4 g/dL (32.0-36.0); Mean Corpuscular Volume 68.3 fL (80.0-100.0); Monocytes # (auto) 0.8 10 ^3/uL (0-1.3); Monocytes % (auto) 9.6 % (0.0-12.0); Red Blood Cells 4.12 10^6/uL (4.5-5.90); White Blood Cell 8.2 10^3/uL (4.4-10.8)
[2023-11-30 05:56] LABS: Chloride 105 mmol/L (98-107); Potassium 4.5 mmol/L (3.5-5.1); Sodium 134 mmol/L (136-145)
[2023-11-30 05:57] LABS: Anion Gap 4 (5-15); Calcium 8.4 mg/dL (8.5-10.1); Carbon Dioxide 25 mmol/L (20-30)
[2023-11-30 06:02] LABS: BUN/Creatinine Ratio 32.9 (10.0-20.0); Blood Urea Nitrogen 48 mg/dL (9-23); Glucose 204 mg/dL (74-106)
[2023-11-30] MEDS: VANCOMYCIN 1GM/200ML 200 ML IV SCH (10:59)
[2023-11-30] MEDS: GADOTERATE MEG 10 MMOL/20ml INJ (0.5MMOL/ml) IV ONE (12:48)
[2023-12-01] VITALS (11 sets, daily range): BP systolic 127–162; BP diastolic 61–88; PULSE 73–108; RESP 16–22; TEMP 97.6–98.5; O2SAT 92–99
[2023-12-01 05:34] LABS: Chloride 104 mmol/L (98-107); Potassium 5.2 mmol/L (3.5-5.1); Sodium 134 mmol/L (136-145)
[2023-12-01 05:35] LABS: Anion Gap 4 (5-15); Carbon Dioxide 26 mmol/L (20-30)
[2023-12-01 05:36] LABS: Calcium 8.4 mg/dL (8.5-10.1)
[2023-12-01 05:41] LABS: Blood Urea Nitrogen 54 mg/dL (9-23); Glucose 257 mg/dL (74-106)
[2023-12-01 09:32] LABS: Basophils # (auto) 0 10 ^3/uL (0-0.2); Basophils % (auto) 0.6 % (0.0-2.0); Eosinophils # (auto) 0.3 10 ^3/uL (0-0.8); Eosinophils % (auto) 3.9 % (0.0-7.0); Hematocrit 28.5 % (41.0-53.0); Hemoglobin 8.8 g/dL (13.5-17.5); Lymphocytes # (auto) 0.6 10 ^3/uL (0.4-5.4); Lymphocytes % (auto) 7.4 % (10.0-50.0); Mean Corpuscular Hemoglobin 20.9 pg (28.0-32.0); Mean Corpuscular Hgb Conc. 30.8 g/dL (32.0-36.0); Mean Corpuscular Volume 67.9 fL (80.0-100.0); Monocytes # (auto) 0.6 10 ^3/uL (0-1.3); Monocytes % (auto) 8.2 % (0.0-12.0); Neutrophils % (auto) 79.9 % (37.0-80.0); Nucleated Red Blood Cells % 0.2 %; Red Blood Cells 4.19 10^6/uL (4.5-5.90); Red Cell Distribution Width 19.6 % (11.8-14.3); White Blood Cell 7.5 10^3/uL (4.4-10.8)
[2023-12-01] MEDS: SODIUM BICARB 8.4% 50Meq/50ml SYR INJ IV ONE (10:10)
[2023-12-01] MEDS: DEXTROSE (50%) 50ML SYRG IV ONE (10:10)
[2023-12-01] MEDS: InsuLIN REG 1unit/0.01ml Soln (100units/ml) IV ONE (10:10)
[2023-12-01] MEDS: ALBUTEROL SULF 2.5 MG/0.5ML(0.5%) NEB SOLN NEB ONE (10:16)
[2023-12-01 14:08] LABS: Body Fluid Polymorphonuclear 8 % (0-25); Body Fluid Red Blood Cells 218 CUMM (0-2000); Body Fluid White Blood Cells 200 CUMM (0-200)
[2023-12-02] VITALS (10 sets, daily range): BP systolic 87–147; BP diastolic 20–84; PULSE 84–100; RESP 16–20; TEMP 36.9; O2SAT 97–100
[2023-12-02 06:03] LABS: Basophils # (auto) 0 10 ^3/uL (0-0.2); Basophils % (auto) 0.5 % (0.0-2.0); Eosinophils # (auto) 0.3 10 ^3/uL (0-0.8); Eosinophils % (auto) 2.9 % (0.0-7.0); Hematocrit 26.3 % (41.0-53.0); Hemoglobin 8.2 g/dL (13.5-17.5); Lymphocytes # (auto) 0.6 10 ^3/uL (0.4-5.4); Lymphocytes % (auto) 6.4 % (10.0-50.0); Mean Corpuscular Hemoglobin 21.3 pg (28.0-32.0); Mean Corpuscular Hgb Conc. 31.1 g/dL (32.0-36.0); Mean Corpuscular Volume 68.5 fL (80.0-100.0); Monocytes # (auto) 0.8 10 ^3/uL (0-1.3); Monocytes % (auto) 8.5 % (0.0-12.0); Neutrophils # (auto) 7.9 10 ^3/uL (1.6-8.6); Neutrophils % (auto) 81.7 % (37.0-80.0); Nucleated Red Blood Cells % 0.1 %; Red Blood Cells 3.84 10^6/uL (4.5-5.90); Red Cell Distribution Width 19.7 % (11.8-14.3); White Blood Cell 9.6 10^3/uL (4.4-10.8)
[2023-12-02 06:22] LABS: Chloride 102 mmol/L (98-107); Potassium 4.7 mmol/L (3.5-5.1); Sodium 134 mmol/L (136-145)
[2023-12-02 06:23] LABS: Anion Gap 6 (5-15); Calcium 8.4 mg/dL (8.5-10.1); Carbon Dioxide 26 mmol/L (20-30)
[2023-12-02 06:28] LABS: Glucose 181 mg/dL (74-106)
[2023-12-02 06:29] LABS: BUN/Creatinine Ratio 28.7 (10.0-20.0)
[2023-12-02 06:30] LABS: Blood Urea Nitrogen 37 mg/dL (9-23)
[2023-12-02 11:21] LABS: Base Excess 1.8 mmol/L (-2.0-2.0)
[2023-12-02] MEDS: LIDOCAINE 1% (LOCAL ANESTH.) PF 5ml SDV ID ONE (11:45)
[2023-12-02 13:07] LABS: Protein, Body Fluid 1.7 g/dL (.)
[2023-12-02] MEDS: SODIUM CHLOR 0.9% PF (SALINE LOCK) 10ML VIAL/SYR IV SCH (22:33)
[2023-12-03] VITALS (8 sets, daily range): BP systolic 104–205; BP diastolic 37–81; PULSE 69–104; RESP 18–20; TEMP 36.8; O2SAT 91–98
[2023-12-03 06:18] LABS: Basophils # (auto) 0 10 ^3/uL (0-0.2); Basophils % (auto) 0.5 % (0.0-2.0); Eosinophils # (auto) 0.3 10 ^3/uL (0-0.8); Monocytes # (auto) 0.6 10 ^3/uL (0-1.3); Nucleated Red Blood Cells % 0.1 %
[2023-12-03 06:20] LABS: Eosinophils % (auto) 4.4 % (0.0-7.0); Hematocrit 25.8 % (41.0-53.0); Hemoglobin 8.2 g/dL (13.5-17.5); Lymphocytes # (auto) 0.6 10 ^3/uL (0.4-5.4); Lymphocytes % (auto) 8.5 % (10.0-50.0); Mean Corpuscular Hemoglobin 21.6 pg (28.0-32.0); Mean Corpuscular Hgb Conc. 31.9 g/dL (32.0-36.0); Mean Corpuscular Volume 67.8 fL (80.0-100.0); Monocytes % (auto) 8.6 % (0.0-12.0); Neutrophils # (auto) 5.4 10 ^3/uL (1.6-8.6); Red Blood Cells 3.81 10^6/uL (4.5-5.90); Red Cell Distribution Width 19.5 % (11.8-14.3)
[2023-12-03 06:39] LABS: Anion Gap 3 (5-15); Carbon Dioxide 28 mmol/L (20-30); Chloride 99 mmol/L (98-107); Potassium 5.2 mmol/L (3.5-5.1); Sodium 130 mmol/L (136-145)
[2023-12-03 06:40] LABS: Calcium 8.3 mg/dL (8.5-10.1)
[2023-12-03 06:45] LABS: BUN/Creatinine Ratio 37.5 (10.0-20.0); Glucose 245 mg/dL (74-106)
[2023-12-03 06:57] LABS: Blood Urea Nitrogen 51 mg/dL (9-23)
[2023-12-03] MEDS: NICOTINE 21MG/24 HR TOPICAL PATCH TD ONE (11:35)
[2023-12-04] VITALS (8 sets, daily range): BP systolic 131–150; BP diastolic 68–85; PULSE 53–89; RESP 16–22; TEMP 98–98.6; O2SAT 91–100
[2023-12-04 05:43] LABS: Eosinophils # (auto) 0.3 10 ^3/uL (0-0.8); Hematocrit 28.6 % (41.0-53.0); Mean Corpuscular Hemoglobin 21.5 pg (28.0-32.0); Monocytes # (auto) 0.7 10 ^3/uL (0-1.3)
[2023-12-04 05:46] LABS: Basophils # (auto) 0 10 ^3/uL (0-0.2); Basophils % (auto) 0.7 % (0.0-2.0); Eosinophils % (auto) 4.5 % (0.0-7.0); Hemoglobin 8.9 g/dL (13.5-17.5); Lymphocytes # (auto) 0.7 10 ^3/uL (0.4-5.4); Lymphocytes % (auto) 10.6 % (10.0-50.0); Mean Corpuscular Hgb Conc. 31.1 g/dL (32.0-36.0); Mean Corpuscular Volume 69.1 fL (80.0-100.0); Monocytes % (auto) 10.7 % (0.0-12.0); Neutrophils # (auto) 4.6 10 ^3/uL (1.6-8.6); Neutrophils % (auto) 73.5 % (37.0-80.0); Nucleated Red Blood Cells % 0.1 %; Red Blood Cells 4.14 10^6/uL (4.5-5.90); Red Cell Distribution Width 19.2 % (11.8-14.3); White Blood Cell 6.2 10^3/uL (4.4-10.8)
[2023-12-04 06:17] LABS: Alanine Aminotransferase 27 U/L (7-40); Albumin 2.8 g/dL (3.2-4.8); Alkaline Phosphatase 129 U/L (46-116); Anion Gap 3 (5-15); Aspartate Aminotransferase 33 U/L (13-40); BUN/Creatinine Ratio 34.1 (10.0-20.0); Blood Urea Nitrogen 45 mg/dL (9-23); Calcium 8.4 mg/dL (8.5-10.1); Carbon Dioxide 28 mmol/L (20-30); Chloride 99 mmol/L (98-107); Glucose 287 mg/dL (74-106); Potassium 4.4 mmol/L (3.5-5.1); Sodium 130 mmol/L (136-145)
[2023-12-04 06:18] LABS: Bilirubin, Total 0.2 mg/dL (0.2-1.0); Total Protein 6.8 g/dL (5.7-8.2)
[2023-12-04] MEDS: NICOTINE 21MG/24 HR TOPICAL PATCH TD SCH (09:47)
[2023-12-04] MEDS: ACETAMINOPHEN 325 MG TAB PO PRN (12:26)
[2023-12-05 01:00] VITALS: BP 146/80; PULSE 87; RESP 18; TEMP 97.8; O2SAT 98
[2023-12-05 07:44] VITALS: PULSE 91; RESP 18
[2023-12-05 08:00] VITALS: PULSE 87
[2023-12-05 09:00] VITALS: BP 137/81; PULSE 79; RESP 18; TEMP 98; O2SAT 99
[2023-12-05 13:00] VITALS: BP 142/74; PULSE 87; RESP 18; TEMP 98.3; O2SAT 98
== END 2023-12-05 15:00 | DRG 347 ==
LOC: ER 10:53 → OVERFLOW 16:09 → EAST 11-24 14:02 → TELE-EAST 11-25 07:39 → DOU IN ICU 11-28 16:22 → TELE-CENTR 11-30 21:25
PROVIDERS: ADMIT Internal Medicine Pulmonary Disease; ATTEND Internal Medicine
PROC: 5A09357 Assistance with Respiratory Ventilation, Less than 24 Consecutive Hours, Continuous Positive Airway Pressure (ICD-10-PCS; principal; 2023-11-29)
PROC: 5A09357 Assistance with Respiratory Ventilation, Less than 24 Consecutive Hours, Continuous Positive Airway Pressure (ICD-10-PCS; 2023-11-30)
PROC: 5A09357 Assistance with Respiratory Ventilation, Less than 24 Consecutive Hours, Continuous Positive Airway Pressure (ICD-10-PCS; 2023-12-01)
PROC: 0W9G3ZZ Drainage of Peritoneal Cavity, Percutaneous Approach (ICD-10-PCS; 2023-12-01)
PROC: 02HV33Z Insertion of Infusion Device into Superior Vena Cava, Percutaneous Approach (ICD-10-PCS; 2023-12-02)
PROC: B548ZZA Ultrasonography of Superior Vena Cava, Guidance (ICD-10-PCS; 2023-12-02)
DX: M48.02 Spinal stenosis, cervical region (principal); N17.0 Acute kidney failure with tubular necrosis; K76.82 Hepatic encephalopathy; L02.416 Cutaneous abscess of left lower limb; L03.116 Cellulitis of left lower limb; E87.1 Hypo-osmolality and hyponatremia; R18.8 Other ascites; L97.529 Non-pressure chronic ulcer of other part of left foot with unspecified severity; E11.22 Type 2 diabetes mellitus with diabetic chronic kidney disease; D64.9 Anemia, unspecified; E11.621 Type 2 diabetes mellitus with foot ulcer; E87.5 Hyperkalemia; F19.10 Other psychoactive substance abuse, uncomplicated; F17.210 Nicotine dependence, cigarettes, uncomplicated; I12.9 Hypertensive chronic kidney disease with stage 1 through stage 4 chronic kidney disease, or unspecified chronic kidney disease; I16.0 Hypertensive urgency; K74.60 Unspecified cirrhosis of liver; M25.78 Osteophyte, vertebrae; E11.65 Type 2 diabetes mellitus with hyperglycemia; N18.31 Chronic kidney disease, stage 3a; B19.20 Unspecified viral hepatitis C without hepatic coma; Z88.0 Allergy status to penicillin; Z83.3 Family history of diabetes mellitus; Z92.29 Personal history of other drug therapy; Z79.4 Long term (current) use of insulin
CPT/HCPCS: 36415; 36569; 49083; 70450; 71045; 72125; 72141; 72142; 73030; 73630; 76700; 76705; 76942; 80048; 80053; 80074; 80202; 80307; 81001; 82140; 82270; 82306; 82570; 82595; 82607; 82728; 82746; 82962; 83036; 83540; 83550; 83605; 83615; 83735; 83880; 83970; 83986; 84100; 84156; 84300; 84484; 85025; 85045; 85610; 85652; 85730; 86141; 86160; 86703; 86850; 86900; 86901; 87040; 87077; 87081; 87086; 87186; 87205; 89051; 93005; 93306; 94640; 94660; 96365; 96375; 97110; 97163; G0378; J0330; J1815; J2405; J3490

== ENCOUNTER 2024-02-04 09:52 | Inpatient (IN) | payer MEDICAID ==
[~2024-02-04] VITALS: Ht 182.9 cm; Wt 102.7 kg
[2024-02-04 11:00] LABS: Hemoglobin 9.3 g/dL (13.5-17.5); Lymphocytes # (auto) 0.4 10 ^3/uL (0.4-5.4); Monocytes # (auto) 0.4 10 ^3/uL (0-1.3)
[2024-02-04 11:02] LABS: Basophils # (auto) 0.1 10 ^3/uL (0-0.2); Basophils % (auto) 1.4 % (0.0-2.0); Eosinophils # (auto) 0.1 10 ^3/uL (0-0.8); Eosinophils % (auto) 2.1 % (0.0-7.0); Mean Corpuscular Hemoglobin 21.2 pg (28.0-32.0); Mean Corpuscular Volume 68.2 fL (80.0-100.0); Monocytes % (auto) 9.6 % (0.0-12.0); Neutrophils # (auto) 3.1 10 ^3/uL (1.6-8.6); Neutrophils % (auto) 77.9 % (37.0-80.0); Nucleated Red Blood Cells % 0.2 %
[2024-02-04 11:11] LABS: Chloride 108 mmol/L (98-107); Sodium 134 mmol/L (136-145)
[2024-02-04 11:12] LABS: Anion Gap 5 (5-15); Carbon Dioxide 21 mmol/L (20-30)
[2024-02-04 11:13] LABS: Calcium 8.8 mg/dL (8.7-10.4)
[2024-02-04 11:17] LABS: BUN/Creatinine Ratio 23.8 (10.0-20.0); Blood Urea Nitrogen 38 mg/dL (9-23); Glucose 287 mg/dL (74-106)
[2024-02-04 11:30] VITALS: PULSE 92; RESP 18; O2SAT 98
[2024-02-04 11:51] LABS: Urine Bacteria None Seen /hpf (None Seen)
[2024-02-04 12:12] LABS: Urine Blood 2+ /uL (Negative); Urine Clarity Clear (Clear); Urine Color Light-Yellow (Yellow); Urine Protein, UAD 1+ (Negative); Urine Specific Gravity 1.012 (1.001-1.035); Urine Urobilinogen Normal (Negative); Urine WBC <1 /hpf (0 - 3); Urine pH 5.5 (5.0-9.0)
[2024-02-04] MEDS ORDERED: DEXTROSE (50%) 50ML SYRG IV PRN (14:00)
[2024-02-04] MEDS: FUROSEMIDE 20 MG/2 ML VIAL IV ONE (14:30)
[2024-02-04 14:34] LABS: Triglycerides 53 mg/dL (< 150)
[2024-02-04 14:35] LABS: LDL Cholesterol 48 mg/dL (< 100)
[2024-02-04 14:36] LABS: HDL Cholesterol 34 mg/dL (40-59)
[2024-02-04 14:37] LABS: Cholesterol 99 mg/dL (< 200)
[2024-02-04 14:53] LABS: INR 1.06 (0.9-1.15); Prothrombin Time 11.2 sec (9.3-11.8)
[2024-02-04] MEDS ORDERED: FURO40TA4 PO (15:36)
[2024-02-04] MEDS ORDERED: TRAM50TA2 PO (15:39)
[2024-02-04] MEDS ORDERED: METO-289 PO (15:39)
[2024-02-04] MEDS ORDERED: LACT10SO3 PO (15:39)
[2024-02-04] MEDS ORDERED: AMLO1TAB23 PO (15:39)
[2024-02-04] MEDS: ACCU-CHEK COMFORT CURVE STRIP VI SCH (17:00)
[2024-02-04] MEDS: InsuLIN REG 1unit/0.01ml Soln (100units/ml) SC SCH (17:08)
[2024-02-04] MEDS: hydrALAZINE HCL 20 MG/ML VL IV PRN (17:46)
[2024-02-04 18:39] VITALS: BP 160/95; PULSE 99; RESP 20; TEMP 97.9; O2SAT 96
[2024-02-04 20:00] VITALS: PULSE 97
[2024-02-04 21:00] VITALS: BP 167/86; PULSE 99; RESP 17; TEMP 97.7; O2SAT 95
[2024-02-04] MEDS: GABAPENTIN 400 MG CAP PO SCH (21:06)
[2024-02-04] MEDS: traMADol HCL 50 MG TAB PO PRN (21:46)
[2024-02-04 21:47] VITALS: BP 154/86; PULSE 106; RESP 20; O2SAT 94
[2024-02-05] VITALS (9 sets, daily range): BP systolic 139–163; BP diastolic 75–94; PULSE 92–100; RESP 16–20; TEMP 97.7–98.4; O2SAT 90–98
[2024-02-05 07:47] LABS: Eosinophils # (auto) 0.2 10 ^3/uL (0-0.8); Hemoglobin 8.9 g/dL (13.5-17.5); Monocytes # (auto) 0.5 10 ^3/uL (0-1.3); Monocytes % (auto) 10.6 % (0.0-12.0); Neutrophils # (auto) 3.7 10 ^3/uL (1.6-8.6)
[2024-02-05 07:49] LABS: Basophils # (auto) 0.1 10 ^3/uL (0-0.2); Basophils % (auto) 1.4 % (0.0-2.0); Eosinophils % (auto) 4.8 % (0.0-7.0); Hematocrit 28.6 % (41.0-53.0); Lymphocytes # (auto) 0.5 10 ^3/uL (0.4-5.4); Lymphocytes % (auto) 9.5 % (10.0-50.0); Mean Corpuscular Volume 67.6 fL (80.0-100.0); Neutrophils % (auto) 73.7 % (37.0-80.0); Nucleated Red Blood Cells % 0.1 %; Red Blood Cells 4.22 10^6/uL (4.5-5.90); White Blood Cell 5.1 10^3/uL (4.4-10.8)
[2024-02-05 08:08] LABS: Alanine Aminotransferase 53 U/L (7-40); Alkaline Phosphatase 132 U/L (46-116); Anion Gap 3 (5-15); Aspartate Aminotransferase 51 U/L (13-40); Calcium 8.6 mg/dL (8.7-10.4); Carbon Dioxide 23 mmol/L (20-30); Chloride 109 mmol/L (98-107); Potassium 5.5 mmol/L (3.5-5.1); Sodium 135 mmol/L (136-145)
[2024-02-05 08:09] LABS: Albumin 3.3 g/dL (3.2-4.8); Bilirubin, Total 0.4 mg/dL (0.2-1.0); Total Protein 6.6 g/dL (5.7-8.2)
[2024-02-05 08:13] LABS: Glucose 137 mg/dL (74-106)
[2024-02-05 09:04] LABS: Blood Urea Nitrogen 34 mg/dL (9-23)
[2024-02-05] MEDS: ENOXAPARIN SOD 40 MG/0.4 ML SYRINGE SC SCH (09:20)
[2024-02-05] MEDS: FUROSEMIDE 20 MG/2 ML VIAL IV SCH (09:21)
[2024-02-05] MEDS: SODIUM ZIRCONIUM CYCL 10 GM PAK PO ONE (16:05)
[2024-02-06] VITALS (7 sets, daily range): BP systolic 125–145; BP diastolic 65–75; PULSE 69–93; RESP 16–18; TEMP 97.6–98.6; O2SAT 94–98
[2024-02-06 08:48] LABS: Alanine Aminotransferase 48 U/L (7-40); Albumin 3.2 g/dL (3.2-4.8); Alkaline Phosphatase 125 U/L (46-116); Anion Gap 3 (5-15); Aspartate Aminotransferase 55 U/L (13-40); BUN/Creatinine Ratio 20.1 (10.0-20.0); Blood Urea Nitrogen 29 mg/dL (9-23); Calcium 8.5 mg/dL (8.7-10.4); Carbon Dioxide 22 mmol/L (20-30); Chloride 109 mmol/L (98-107); Glucose 107 mg/dL (74-106); Sodium 134 mmol/L (136-145)
[2024-02-06 08:49] LABS: Bilirubin, Total 0.4 mg/dL (0.2-1.0); Total Protein 6.6 g/dL (5.7-8.2)
[2024-02-06 08:51] LABS: Potassium 5.6 mmol/L (3.5-5.1)
[2024-02-06 09:07] LABS: % Iron Saturation 7.9 % (20-55)
[2024-02-06] MEDS: FUROSEMIDE 20 MG TAB PO SCH (09:15)
[2024-02-06] MEDS ORDERED: SPIRONOLACTONE 25 MG TAB PO SCH (10:00)
[2024-02-06] MEDS: LACTULOSE 20Gm/30ML SOLN PO SCH (10:22)
[2024-02-06] MEDS: amLODIPine BESYLATE 5 MG TAB PO SCH (10:23)
[2024-02-06] MEDS: METOPROLOL SUCCINATE XL 50 MG TAB PO SCH (10:24)
[2024-02-06] MEDS: SODIUM ZIRCONIUM CYCL 10 GM PAK PO ONE (11:35)
[2024-02-06] MEDS: FUROSEMIDE 40 MG/4 ML VIAL IV SCH (11:40)
[2024-02-06 13:23] LABS: Basophils # (auto) 0 10 ^3/uL (0-0.2); Eosinophils # (auto) 0.1 10 ^3/uL (0-0.8); Mean Corpuscular Hgb Conc. 30.3 g/dL (32.0-36.0); Monocytes # (auto) 0.5 10 ^3/uL (0-1.3); Neutrophils % (auto) 73.1 % (37.0-80.0); Nucleated Red Blood Cells % 0.2 %; White Blood Cell 4.1 10^3/uL (4.4-10.8)
[2024-02-06 13:24] LABS: Basophils % (auto) 0.7 % (0.0-2.0); Eosinophils % (auto) 3.6 % (0.0-7.0); Lymphocytes # (auto) 0.4 10 ^3/uL (0.4-5.4); Lymphocytes % (auto) 10.5 % (10.0-50.0); Mean Corpuscular Volume 69.1 fL (80.0-100.0); Monocytes % (auto) 12.1 % (0.0-12.0); Red Blood Cells 4.78 10^6/uL (4.5-5.90); Red Cell Distribution Width 24.5 % (11.8-14.3)
[2024-02-06 15:05] LABS: Chloride 108 mmol/L (98-107); Sodium 134 mmol/L (136-145)
[2024-02-06 15:06] LABS: Anion Gap 2 (5-15); Calcium 8.4 mg/dL (8.7-10.4); Carbon Dioxide 24 mmol/L (20-30)
[2024-02-06 15:11] LABS: BUN/Creatinine Ratio 26.3 (10.0-20.0); Blood Urea Nitrogen 36 mg/dL (9-23); Glucose 158 mg/dL (74-106)
[2024-02-06 15:18] LABS: Potassium 5.9 mmol/L (3.5-5.1)
[2024-02-06] MEDS: DEXTROSE (50%) 50ML SYRG IV ONE (17:18)
[2024-02-06] MEDS: InsuLIN REG 1unit/0.01ml Soln (100units/ml) IV ONE (17:36)
[2024-02-06 19:36] LABS: Chloride 108 mmol/L (98-107); Potassium 5.1 mmol/L (3.5-5.1); Sodium 134 mmol/L (136-145)
[2024-02-06 19:37] LABS: Anion Gap 5 (5-15); Carbon Dioxide 21 mmol/L (20-30)
[2024-02-06 19:42] LABS: BUN/Creatinine Ratio 18.7 (10.0-20.0); Glucose 81 mg/dL (74-106)
[2024-02-06 19:44] LABS: Blood Urea Nitrogen 26 mg/dL (9-23)
[2024-02-06 21:40] LABS: Body Fluid Polymorphonuclear 15 % (0-25); Body Fluid Red Blood Cells 975 CUMM (0-2000); Body Fluid White Blood Cells 80 CUMM (0-200)
[2024-02-06] MEDS: SODIUM ZIRCONIUM CYCL 10 GM PAK PO SCH (22:27)
[2024-02-07 01:00] VITALS: BP 139/81; PULSE 92; RESP 18; TEMP 97.7; O2SAT 96
[2024-02-07 05:00] VITALS: BP 136/75; PULSE 72; RESP 18; TEMP 97.6; O2SAT 95
[2024-02-07 08:00] VITALS: PULSE 70; PULSE 71; RESP 17; O2SAT 95
[2024-02-07 09:03] LABS: Basophils # (auto) 0 10 ^3/uL (0-0.2); Basophils % (auto) 0.7 % (0.0-2.0); Eosinophils # (auto) 0.2 10 ^3/uL (0-0.8); Hemoglobin 9.5 g/dL (13.5-17.5); Lymphocytes # (auto) 0.6 10 ^3/uL (0.4-5.4); Monocytes # (auto) 0.5 10 ^3/uL (0-1.3); Red Blood Cells 4.52 10^6/uL (4.5-5.90)
[2024-02-07 09:05] LABS: Eosinophils % (auto) 4.4 % (0.0-7.0); Hematocrit 30.6 % (41.0-53.0); Lymphocytes % (auto) 13.3 % (10.0-50.0); Mean Corpuscular Volume 67.7 fL (80.0-100.0); Monocytes % (auto) 11.4 % (0.0-12.0); Neutrophils % (auto) 70.2 % (37.0-80.0); Nucleated Red Blood Cells % 0.4 %; Red Cell Distribution Width 24.4 % (11.8-14.3); White Blood Cell 4.3 10^3/uL (4.4-10.8)
[2024-02-07 09:16] LABS: Anion Gap 3 (5-15); Calcium 8.4 mg/dL (8.7-10.4); Carbon Dioxide 25 mmol/L (20-30); Chloride 106 mmol/L (98-107); Potassium 5.1 mmol/L (3.5-5.1); Sodium 134 mmol/L (136-145)
[2024-02-07 09:21] LABS: BUN/Creatinine Ratio 23.5 (10.0-20.0); Glucose 125 mg/dL (74-106)
[2024-02-07 09:23] LABS: Blood Urea Nitrogen 36 mg/dL (9-23)
[2024-02-07 09:30] VITALS: BP 138/73; PULSE 71; RESP 17; TEMP 97.7; O2SAT 95
[2024-02-07 12:06] LABS: Protein, Body Fluid 2.5 g/dL (.)
[2024-02-07] MEDS ORDERED: FURO1TAB31 PO (13:33)
[2024-02-07] MEDS ORDERED: LACT10SO3 PO (13:33)
[2024-02-07] MEDS ORDERED: SPIR100T4 PO (13:33)
[2024-02-07 13:34] VITALS: BP 130/69; PULSE 70; RESP 17; TEMP 98; O2SAT 94
[2024-02-07 14:30] VITALS: BP 130/69; PULSE 70; RESP 17; TEMP 98; O2SAT 94
== END 2024-02-07 16:55 | disposition home or self-care (01) | DRG 425 ==
LOC: ER 09:52 → TELE 14:39 → TELE-WESTW 18:10 → TELE-EAST 02-05 22:15
PROVIDERS: ADMIT Internal Medicine Geriatric Medicine; ATTEND Internal Medicine Geriatric Medicine
PROC: 0W9G3ZZ Drainage of Peritoneal Cavity, Percutaneous Approach (ICD-10-PCS; principal; 2024-02-06)
DX: E87.70 Fluid overload, unspecified (principal); N17.9 Acute kidney failure, unspecified; R18.8 Other ascites; E11.22 Type 2 diabetes mellitus with diabetic chronic kidney disease; I12.9 Hypertensive chronic kidney disease with stage 1 through stage 4 chronic kidney disease, or unspecified chronic kidney disease; K74.60 Unspecified cirrhosis of liver; N50.89 Other specified disorders of the male genital organs; E66.01 Morbid (severe) obesity due to excess calories; E87.5 Hyperkalemia; Z88.0 Allergy status to penicillin; Z79.4 Long term (current) use of insulin; N18.2 Chronic kidney disease, stage 2 (mild)
CPT/HCPCS: 36415; 49083; 71045; 76705; 76775; 76942; 80048; 80053; 80061; 81001; 82140; 82962; 83540; 83550; 83880; 83930; 83986; 85025; 85610; 87081; 87205; 89051; 93970; G0378; J1815

== ENCOUNTER 2024-07-18 20:08 | Inpatient (IN) | payer MEDICAID ==
[~2024-07-18] VITALS: Ht 185.4 cm; Wt 96.5 kg
[~2024-07-18 20:08] MED LIST changes: +AMLO1TAB23 PO; -CLIN1CAP70 PO; +FURO1TAB31 PO; +FURO40TA4 PO; -GLIP5TAB21 PO; -INSU0.5M33; +INSU0.5M33 SC; +LACT10SO3 PO; -LEVO500T91 PO; -METF-869 PO; +METO-289 PO; +SPIR100T4 PO; +TRAM50TA2 PO
--- NOTE | 2024-07-18 20:26 | ED.PDOC ---
SOB-HPI HPI Comments A 58 year old male brought in by EMS presents to the ED with a chief complaint of shortness of breath onset today about 2 hours ago. Per EMS, patient's abdomen is distended causing patient to experience shortness of breath. He was recently discharged from [place], had his last Paracentesis on 07/07/2024. Patient states his last dialysis was on Tuesday. Has a past medical history of DM, HTN, liver cirrhosis. No other symptoms or modifying factors present at this time. Time Seen by MD: 20:15 Primary Care Provider: LOR Reviewed notes: Medications, Allergies Information Source: Patient, Emergency Med Personnel Mode of Arrival: EMS Severity: Moderate Timing: Hours Duration: Since onset History of: None Prehospital treatment: Oxygen Associated Signs and Symptoms: Leg Swelling Past Medical History PAST MEDICAL HISTORY: DM, HTN, Liver Surgical History: Hernia Repair Family History Family History: Reviewed,noncontributory to illness Social History Smoker: Non-Smoker Alcohol: Denies ETOH Use Drugs: Denies Drug Use Lives In: Home Constitutional: denies: chills, diaphoresis, fatigue, fever, malaise, sweats, weakness, others EENTM: denies: blurred vision, double vision, ear bleeding, ear discharge, ear drainage, ear pain, ear ringing, eye pain, eye redness, hearing loss, mouth pain, mouth swelling, nasal discharge, nose bleeding, nose congestion, nose pain, photophobia, tearing, throat pain, throat swelling, voice changes, others Respiratory: reports: shortness of breath; denies: cough, hemoptysis, orthopnea, SOB at rest, SOB with excertion, stridor, wheezing, others Cardiovascular: denies: chest pain, dizzy spells, diaphoresis, Dyspnea on exertion, edema, irregular heart beat, left arm pain, lightheadedness, palpitations, PND, syncope, others Gastrointestinal: reports: abdomen distended, abdominal pain; denies: blood streaked bowels, constipated, diarrhea, dysphagia, difficulty swallowing, hematemesis, melena, nausea, poor appetite, poor fluid intake, rectal bleeding, rectal pain, vomiting, others Genitourinary: denies: burning, dysuria, flank pain, frequency, hematuria, incontinence, penile discharge, penile sore, pain, testicle pain, testicle swelling, urgency, others Neurological: denies: dizziness, fainting, headache, left sided numbness, left sided weakness, numbness, paresthesia, pre-existing deficit, right sided numbness, right sided weakness, seizure, speech problems, tingling, tremors, weakness, others Musculoskeletal: denies: back pain, gout, joint pain, joint swelling, muscle pain, muscle stiffness, neck pain, others Integumetry: denies: bruises, change in color, change in hair/nails, dryness, laceration, lesions, lumps, rash, wounds, others Allergic/Immunocompromised: denies: Difficulty Healing, Frequent Infections, Hives, Itching, others Hematologic/Lymphatic: denies: anemia, blood clots, easy bleeding, easy bruising, swollen glands, others Endocrine: denies: excessive hunger, excessive sweating, excessive thirst, excessive urination, flushing, intolerance to cold, intolerance to heat, unexplained weight gain, unexplained weight loss, others Psychiatric: denies: anxiety, bipolar disorder, depression, hopeless, panic disorder, schizophrenia, sleepless, suicidal, others All Other Systems: Reviewed and Negative Physical Exam General Appearance: No Apparent Distress, Normal HEENT: Normal ENT Inspection, Pharynx Normal, TMs Normal Neck: Full Range of Motion, Non-Tender, Normal, Normal Inspection Respiratory: Chest Non-Tender, Lungs Clear, No Accessory Muscle Use, No Respiratory Distress, Normal Breath Sounds Cardiovascular: No Edema, No JVD, No Murmur, No Gallop, Normal Peripheral Pulses, Regular Rate/Rhythm Breast Exam: Deferred Gastrointestinal: No Organomegaly, No Pulsatile Mass, Normal Bowel Sounds, Other (distended ) Genitalia: Deferred Pelvic: Deferred Rectal: Deferred Extremities: No calf tenderness, Pedal edema (2+ bilateral lower extremity) Musculoskeletal : Apperance: Normal Neurologic: Alert, pharmacy helper II-XII nml as Tested, No Motor Deficits, Normal Affect, Normal Mood, No Sensory Deficits Cerebellar Function: Normal Reflexes: Normal Skin: Dry, Normal Color, Warm Lymphatic: No Adenopathy Was a procedure done? Was a procedure done?: No Differential Dx Differential Diagnosis: CHF, COPD, Pneumonia, URI X-Ray, Labs, Meds, VS Vital Signs Date Time Temp Pulse Resp B/P (MAP) Pulse Ox O2 Delivery O2 Flow Rate FiO2 07/19/24 01:00 105 29 109/71 (84) 95 07/19/24 00:00 93 07/18/24 23:00 96 23 100/62 (75) 100 07/18/24 21:00 104 23 99 Nasal Cannula* 4 36 07/18/24 21:00 97.8 104 23 98/64 (75) 99 97.8 07/18/24 20:42 110 105/63 (77) 97 07/18/24 20:26 109 07/18/24 20:20 101.3 109 24 131/83 (99) 93 07/18/24 20:20 110 Lab Test 07/18/24 23:20 07/18/24 21:41 07/18/24 20:38 Range/Units Lactic Acid Level 0.9 0.4-2.0 mmol/L Troponin I High Sensitivity 22 19 17 </=54 ng/L B-Type Natriuretic Peptide 1020.58 0-100 pg/mL White Blood Count 6.8 4.4-10.8 10^3/uL Red Blood Count 3.23 L 4.5-5.90 10^6/uL Hemoglobin 7.3 L 13.5-17.5 g/dL Hematocrit 23.8 L 41.0-53.0 % Mean Corpuscular Volume 73.6 L 80.0-100.0 fL Mean Corpuscular Hemoglobin 22.5 L 28.0-32.0 pg Mean Corpuscular Hemoglobin Concent 30.6 L 32.0-36.0 g/dL Red Cell Distribution Width 25.5 H 11.8-14.3 % Platelet Count 106 L 140-450 10^3/uL Mean Platelet Volume 8.7 6.9-10.8 fL Neutrophils (%) (Auto) 78.8 37.0-80.0 % Lymphocytes (%) (Auto) 5.0 L 10.0-50.0 % Monocytes (%) (Auto) 12.4 H 0.0-12.0 % Eosinophils (%) (Auto) 3.4 0.0-7.0 % Basophils (%) (Auto) 0.4 0.0-2.0 % Neutrophils # (Auto) 5.3 1.6-8.6 10 ^3/uL Lymphocytes # (Auto) 0.3 L 0.4-5.4 10 ^3/uL Monocytes # (Auto) 0.8 0-1.3 10 ^3/uL Eosinophils # (Auto) 0.2 0-0.8 10 ^3/uL Basophils # (Auto) 0 0-0.2 10 ^3/uL Nucleated Red Blood Cells 0.1 % Platelet Estimate Decreased Hypochromasia (manual) Moderate Anisocytosis (manual) Moderate Microcytosis Moderate Ovalocytes Many Sodium Level 138 136-145 mmol/L Potassium Level 5.4 H 3.5-5.1 mmol/L Chloride Level 107 98-107 mmol/L Carbon Dioxide Level 25 20-31 mmol/L Anion Gap 6 5-15 Blood Urea Nitrogen 28 H 9-23 mg/dL Creatinine 4.68 H 0.700-1.30 mg/dL Glomerular Filtration Rate Calc 14 >90 mL/min BUN/Creatinine Ratio 6.0 L 10.0-20.0 Serum Glucose 103 74-106 mg/dL Calcium Level 8.4 L 8.7-10.4 mg/dL Phosphorus Level 2.4 2.4-5.1 mg/dL Magnesium Level 1.6 1.6-2.6 mg/dL Microbiology Date/Time Source Procedure Growth Status 07/18/24 23:30 Blood Blood Culture - Preliminary NO GROWTH AFTER 48 HOURS OF INCUBATION. Resulted 07/18/24 23:20 Blood Blood Culture - Preliminary NO GROWTH AFTER 48 HOURS OF INCUBATION. Resulted \ [place] [address] Ph: [phone] DIAGNOSTIC IMAGING Diagnostic Imaging Report : [id number] Signed PATIENT: LAUREN SCHROEDER ACCT: [id number] UNIT: [id number] : 11/14/1992 LOC: ER ROOM / BED: / AGE / SEX: 31 / M ADM STATUS: REG ER SERVICE 48 ORDERING PHYSICIAN: DAREN ANTONY MD PROCEDURE(s): HWOCT - HEAD WITHOUT CONTRAST REASON: left face numbness ORDER NUMBER(s): [id number], ACCESSION NUMBER(s): [id number] Procedure: CT HEAD WITHOUT CONTRAST Study Date and Requested Time: 07/18/2024 08:53 PM History: left face numbness Comparison: None Dose: CTDI: 66.42 mGy DLP: 1308.58 mGycm Technique: Multiplanar images obtained through the brain without intravenous contrast. Findings: Mild diffuse brain atrophy. Mild chronic small vessel ischemic changes. No hemorrhages, masses, mass effect, midline shift, herniation or cytotoxic edema following a large vascular territory. No intra-axial or extra-axial fluid collections. No evidence of hydrocephalus. The basal cisterns are patent. Nonspecific partially empty sella. The cerebellar tonsils are in normal position. The cerebellum is unremarkable. The orbits and globes are unremarkable. Minimal mucoperiosteal thickening of the ethmoid air cells. Otherwise, the paranasal sinuses and mastoids are clear. There are no worrisome calvarial lesions. Impression: No evidence of acute intracranial abnormality. ATED BY: MICHELL JIMENEZ DO DICTATED DATE/TIME: 07/18/242110 SIGNED BY: MICHELL JIMENEZ DO SIGNED DATE/TIME: 07/18/242110 CC: Time of 1ST Reevaluation: 20:45 Reevaluation 1ST: Unchanged Patient Education/Counseling: Diagnosis, Treatment, Prognosis Family Education/Counseling: No Family Present Additional Information I reviewed the following notes from patient's past medical encounters: The following tests were ordered, and results were reviewed by me: MAGNESIUM, PHOSPHORUS, BMP, CBC, TROP, TROP, TROP, BNP, XY CHEST, CT AB PEL WO CONTRAST Additional Information was gathered from interviewing the following independent historians: EMS I reviewed and agreed with the following test results read by other providers:XY CHEST. CT AB PEL WO CONTRAST I discussed treatment and results with medical personnel and: patient Departure 1 Departure Time of Disposition: 22:41 (Patient with a acute hypoxic respiratory failure. ) Impression: Primary Impression: Acute hypoxic respiratory failure Additional Impression: Ascites Qualified Codes: R18.8 - Other ascites Disposition: ADMITTED INPATIENT Admit to: [facility] Condition: Guarded Critical Care Note Critical Care Time?: Yes Critical care comment: Acute hypoxic respiratory failure Authorized and Performed by: Boy Sommer MD Total critical care time: Approximately 49 minutes Due to a high probability of clinically significant, life threatening deterioration, the patient required my highest level of preparedness to intervene emergently and I personally spent this critical care time directly and personally managing the patient. This critical care time included obtaining a history; examining the patient; pulse oximetry; ordering and review of studies; arranging urgent treatment with development of a management plan; evaluation of patient's response to treatment; frequent reassessment; and, discussions with other providers. This critical care time was performed to assess and manage the high probability of imminent, life-threatening deterioration that could result in multi-organ failure. It was exclusive of separately billable procedures and treating other patients and teaching time. Please see my other sections and the rest of the note for further information on patient assessment and treatment. Stability Stability form required: No Heart Score Heart Score: Heart Score Response (Comments) Value History N/A 0 EKG N/A 0 Age N/A 0 Risk Factors N/A 0 Troponin N/A 0 Total 0 I personally scribed for BOY SOMMER MD ([email or web address]) on 07/18/24 at 20:26. Electronically submitted by Rosanne Estrada ([email or web address]). I personally scribed for BOY SOMMER MD ([email or web address]) on 07/18/24 at 20:27. Electronically submitted by Rosanne Estrada ([email or web address]). I personally scribed for BOY SOMMER MD ([email or web address]) on 07/18/24 at 20:50. Electronically submitted by Rosanne Estrada ([email or web address]). I personally scribed for BOY SOMMER MD ([email or web address]) on 07/18/24 at 21:49. Electronically submitted by Rosanne Estrada ([email or web address]). I personally scribed for BOY SOMMER MD ([email or web address]) on 07/18/24 at 21:50. Electronically submitted by Rosanne Estrada ([email or web address]). BOY SOMMER MD Jul 18, 2024 20:26
[2024-07-18 21:00] VITALS: PULSE 104; RESP 23; O2SAT 99
[2024-07-18 21:01] LABS: Basophils # (auto) 0 10 ^3/uL (0-0.2); Basophils % (auto) 0.4 % (0.0-2.0); Eosinophils # (auto) 0.2 10 ^3/uL (0-0.8); Eosinophils % (auto) 3.4 % (0.0-7.0); Hematocrit 23.8 % (41.0-53.0); Hemoglobin 7.3 g/dL (13.5-17.5); Lymphocytes # (auto) 0.3 10 ^3/uL (0.4-5.4); Mean Corpuscular Hemoglobin 22.5 pg (28.0-32.0); Mean Corpuscular Hgb Conc. 30.6 g/dL (32.0-36.0); Mean Corpuscular Volume 73.6 fL (80.0-100.0); Monocytes # (auto) 0.8 10 ^3/uL (0-1.3); Monocytes % (auto) 12.4 % (0.0-12.0); Neutrophils # (auto) 5.3 10 ^3/uL (1.6-8.6); Neutrophils % (auto) 78.8 % (37.0-80.0); Nucleated Red Blood Cells % 0.1 %; Platelet Count (auto) 106 10^3/uL (140-450); Red Blood Cells 3.23 10^6/uL (4.5-5.90); White Blood Cell 6.8 10^3/uL (4.4-10.8)
[2024-07-18 21:02] LABS: Red Cell Distribution Width 25.5 % (11.8-14.3)
[2024-07-18 21:07] LABS: Chloride 107 mmol/L (98-107); Sodium 138 mmol/L (136-145)
[2024-07-18 21:08] LABS: Anion Gap 6 (5-15); Carbon Dioxide 25 mmol/L (20-31)
[2024-07-18 21:14] LABS: Glucose 103 mg/dL (74-106)
[2024-07-18 21:16] LABS: Phosphorus 2.4 mg/dL (2.4-5.1)
[2024-07-18 21:17] LABS: Blood Urea Nitrogen 28 mg/dL (9-23); Calcium 8.4 mg/dL (8.7-10.4); Magnesium 1.6 mg/dL (1.6-2.6); Potassium 5.4 mmol/L (3.5-5.1)
--- NOTE | 2024-07-18 21:37 | DVH ---
CHEST RADIOGRAPH Indication: sob Technique: Single frontal view of the chest was obtained. Image was taken in a lordotic position. Comparison: XY CHEST XRAY 1 VIEW on DOS: 02/06/24, XY CHEST PORTABLE on DOS: 12/02/23, XY CHEST XRAY 1 VIEW on DOS: 11/28/23 FINDINGS: Lines and Tubes: Internal jugular catheter on the right positioned in appears to be in the right atri um on this study however the a lordotic view. Lungs: No focal consolidation. Pleura: No effusion. No pneumothorax. Cardiomediastinal contours: Unremarkable Bones: No acute osseous abnormality. IMPRESSION: 1. Internal jugular catheter in place on the right. 2. No pneumothorax seen.
[2024-07-18 22:15] LABS: Platelet Estimate Decreased
[2024-07-18 22:17] LABS: Anisocytosis Moderate; Hypochromia Moderate; Ovalocytes MANY
--- NOTE | 2024-07-18 22:38 | DVH ---
CLINICAL HISTORY: abdominal pain TECHNIQUE: CT of the abdomen and pelvis was performed without intravenous contrast. This exam was per formed according to our departmental dose optimization program. Up-to-date CT equipment and radiation dose reduction techniques are utilized as appropriate. [[employer] Exposure Report] WID: COMPARISON: None FINDINGS: Lower Thorax: [id number]-[id number] bilateral lower lobe consolidations with air bronchograms. Small bila teral pleural effusions. There is mild cardiomegaly. There is hypodensity of the blood pool relative to myocardium indicative of anemia. Tip of a central venous catheter in the upper right atrium. Liver and Biliary system: Small cirrhotic liver. No definite hepatic lesion on noncontrast study. La yering cholelithiasis in a normal caliber gallbladder. There is no biliary ductal dilatation. There a re portosystemic collateral vessels. Spleen: Mild splenomegaly. Adrenal Glands and Kidneys: Normal adrenal glands. There are tiny bilateral nonobstructing renal lucille culi. No hydronephrosis. Pancreas and Retroperitoneum: Mildly atrophic pancreas. No retroperitoneal lymphadenopathy. Mildly pr ominent there are normal-sized retroperitoneal lymph nodes. Aorta and Major Vessels: Aortoiliac vessels are normal in caliber containing mild calcified atheroscl erotic plaque. Bowel, Mesentery and Peritoneal space: Mild wall thickening of the large bowel most pronounced proxim ally. Normal appendix. There is lqlwtyyn-xp-jyhcm volume ascites. There is no free air or loculated fluid collection. Pelvis: There are dystrophic calcifications in the prostate gland. Urinary bladder is mildly distende d. There is no pelvic lymphadenopathy. Abdominal wall and Osseous Structures: There is body wall edema. Multilevel lower thoracic and lumbar spondylosis. Minimal retrolisthesis at L5-S1. No destructive osseous lesion. IMPRESSION: 1. Cirrhosis and portal hypertension with moderate to large volume ascites, mild splenomegaly, and po rtosystemic collateral vessels. 2. Apkhxvzu-vm-ucixf bilateral lower lobe consolidations with air bronchograms. DDX includes atelecta sis and/or pneumonia which could be on the basis of aspiration. 3. Small bilateral pleural effusions and moderate body wall edema. 4. Mild cardiomegaly. 5. Anemia suggested. Correlate with CBC. 6. Cholelithiasis. 7. Nonobstructing bilateral renal calculi. 8. Mild wall thickening of the large bowel most pronounced proximally which could be related to under lying portal hypertension or colitis.
[2024-07-19] MEDS: PANTOPRAZOLE 40 MG/10 ML VIAL INJ IV SCH (00:30)
[2024-07-19] MEDS: PIPERACILLIN-TAZOB 2.25GM 50 ML IV SCH (00:45)
[2024-07-19] MEDS: DOXYCYCLINE 100MG/250ML 250 ML IV SCH (00:45)
[2024-07-19] MEDS: VANCOMYCIN 1GM/250ML KIT 200 ML IV ONE (00:46)
[2024-07-19 02:37] LABS: Basophils # (auto) 0.1 10 ^3/uL (0-0.2); Hematocrit 24.4 % (41.0-53.0); Lymphocytes # (auto) 0.3 10 ^3/uL (0.4-5.4); Lymphocytes % (auto) 4.2 % (10.0-50.0); Mean Corpuscular Volume 74.1 fL (80.0-100.0); Nucleated Red Blood Cells % 0.1 %
[2024-07-19 02:38] LABS: Basophils % (auto) 0.7 % (0.0-2.0); Eosinophils # (auto) 0.1 10 ^3/uL (0-0.8); Eosinophils % (auto) 1.9 % (0.0-7.0); Hemoglobin 7.3 g/dL (13.5-17.5); Mean Corpuscular Hemoglobin 22.2 pg (28.0-32.0); Mean Corpuscular Hgb Conc. 29.9 g/dL (32.0-36.0); Monocytes % (auto) 13.1 % (0.0-12.0); Neutrophils # (auto) 5.9 10 ^3/uL (1.6-8.6); Neutrophils % (auto) 80.1 % (37.0-80.0); Platelet Count (auto) 113 10^3/uL (140-450); White Blood Cell 7.3 10^3/uL (4.4-10.8)
[2024-07-19] MEDS: ALBUMIN 25% 100 ML IV ONE ×2 (03:00→10:57)
[2024-07-19 03:06] LABS: Red Cell Distribution Width 25.5 % (11.8-14.3)
[2024-07-19 03:15] LABS: INR 1.08 (0.9-1.15); Partial Thromboplastin Time 29.6 SEC (24.5-34.5); Prothrombin Time 11.4 sec (9.3-11.8)
[2024-07-19 03:26] LABS: Alanine Aminotransferase 19 U/L (7-40); Albumin 3.4 g/dL (3.2-4.8); Alkaline Phosphatase 97 U/L (46-116); Anion Gap 4 (5-15); Aspartate Aminotransferase 30 U/L (13-40); Calcium 8.7 mg/dL (8.7-10.4); Carbon Dioxide 26 mmol/L (20-31); Chloride 106 mmol/L (98-107); Sodium 136 mmol/L (136-145); Total Protein 6.5 g/dL (5.7-8.2)
[2024-07-19 03:31] LABS: Bilirubin, Total 0.2 mg/dL (0.2-1.0); Glucose 71 mg/dL (74-106)
[2024-07-19 03:32] LABS: Potassium 5.8 mmol/L (3.5-5.1)
[2024-07-19] MEDS: InsuLIN REG 1unit/0.01ml Soln (100units/ml) IV ONE ×2 (03:44→10:19)
[2024-07-19] MEDS: DEXTROSE (50%) 50ML SYRG IV ONE ×3 (03:45→10:18)
[2024-07-19] MEDS: SODIUM ZIRCONIUM CYCL 10 GM PAK PO ONE ×2 (03:46→10:18)
[2024-07-19] MEDS: CEFEPIME 2GM/50ML NS 50 ML IV ONE (03:52)
[2024-07-19] MEDS: LACTULOSE 20Gm/30ML SOLN PO ONE (04:06)
[2024-07-19 04:19] LABS: BUN/Creatinine Ratio 6.8 (10.0-20.0); Blood Urea Nitrogen 34 mg/dL (9-23)
[2024-07-19 04:52] LABS: Body Fluid Red Blood Cells 0 CUMM (0-2000); Body Fluid White Blood Cells 98 CUMM (0-200)
--- NOTE | 2024-07-19 04:56 | DVHHPRES ---
History of Present Illness Resident Creating Document: SHRUTI ORELLANA RESIDENT History of Present Illness Patient is a 58-year-old male with a known past medical history of liver cirrhosis, kidney failure on dialysis, type 2 diabetes mellitus, suspected heart failure came to the ED with a chief complaint of worsening shortness of breath and abdominal swelling. Patient reports that about 2 weeks ago he got his last paracentesis when the 8-9 L of ascitic fluid was removed. About a week ago he again was admitted to the [facility] for worsening abdominal swelling but a paracentesis was not done. In the last week he also had flu-like symptoms of cough with expectoration, chills and worsening shortness of breath. Patient was brought to the ED for further evaluation. Past medical history: Liver cirrhosis( hep C antibody positive as per records) , kidney failure on dialysis, type 2 diabetes mellitus, ? Diastolic heart failure Past surgical history: None Social history: Lives with his caregiver.Currently smokes about 3 cigarettes per day, denies current drug usage or alcohol consumption. Patient has previous history of methamphetamine use and IV drug use. Home medication: Amlodipine 10 mg q.d., furosemide 40 mg b.i.d., gabapentin 400 mg t.i.d., insulin 20U, lactulose, metoprolol succinate 50 mg q.d., spironolactone 50 mg q.d., tramadol for pain Review of Systems Review of Systems Patient alert and oriented to time, place and person Patient was in respiratory distress with accessory muscle use and tachypnea with RR upto 30/minute with a massive abdomen. Has wet cough with congestion and whitish yellow expectoration Denied chest pain, palpitations, nausea vomiting, diarrhea, headache Allergies: Coded Allergies: Penicillins (Verified Allergy, Unknown, 05/09/17) Medications Current Medications Medications Dose Ordered Sig/Christian Route Start Time Stop Time Status Last Admin Dose Admin Furosemide 80 mg DAILY IV 07/20/24 10:00 Tramadol HCl 50 mg Q12HP PRN PO 07/19/24 02:45 Gabapentin 300 mg BID PO 07/19/24 10:00 Lactulose 30 ml DAILY PO 07/19/24 10:00 Cefepime HCl 50 ml @ 12.5 mls/hr DAILY IV 07/20/24 09:00 Vancomycin HCl 0 ml @ 0 mls/hr UD IV 07/19/24 10:00 UNV Exam Vital Signs Vital Signs Date Time Temp Pulse Resp B/P (MAP) Pulse Ox O2 Delivery O2 Flow Rate FiO2 07/19/24 04:13 98.5 79 30 100/61 (74) 95 98.5 07/18/24 21:00 Nasal Cannula* 4 36 Exam Physical Examination Constitutional: Alert and oriented to time, place and person and was in respiratory distress with respiratory rate up to30/min Gen - mild conjunctival pallor, no icterus, no cyanosis, no clubbing, no LAD, 3+ bilateral pedal edema and generalized anasarca Skin - Patients skin is warm and dry. HEENT - normocephalic, atraumatic, dry mucous membranes. Neck - full ROM, no LAD, no JVD Pulmonary - B/L decreased breath sounds with basilar crackles, no wheezing cardiovascular - parasternal heave present, normal S1,S2 heard. no murmurs heard. peripheral pulses radial 2+, pedal 2+. capillary refill normal <2 secs. GI - severely distended abdomen with positive fluid thrill, diffuse tenderness but no guarding, no rebound tenderness. no hepatospleenomegaly. Bowel sounds normoactive Neurological - Bilateral upper extremity strength 5/5, bilateral lower extremity strength 4/5, no facial droop, normal speech, no sensory deficiets ##Patient had a flapping tremor on extension of the hands Labs/Xrays Labs Test 07/19/24 04:00 07/19/24 03:00 07/19/24 02:23 07/19/24 02:22 Range/Units Body Fluid Source Ascites fluid Body Fluid WBC (Manual) 98 0-200 CUMM Body Fluid RBC (Manual) 0 0-2000 CUMM White Blood Count 7.3 4.4-10.8 10^3/uL Red Blood Count 3.30 L 4.5-5.90 10^6/uL Hemoglobin 7.3 L 13.5-17.5 g/dL Hematocrit 24.4 L 41.0-53.0 % Mean Corpuscular Volume 74.1 L 80.0-100.0 fL Mean Corpuscular Hemoglobin 22.2 L 28.0-32.0 pg Mean Corpuscular Hemoglobin Concent 29.9 L 32.0-36.0 g/dL Red Cell Distribution Width 25.5 H 11.8-14.3 % Platelet Count 113 L 140-450 10^3/uL Mean Platelet Volume 8.4 6.9-10.8 fL Neutrophils (%) (Auto) 80.1 H 37.0-80.0 % Lymphocytes (%) (Auto) 4.2 L 10.0-50.0 % Monocytes (%) (Auto) 13.1 H 0.0-12.0 % Eosinophils (%) (Auto) 1.9 0.0-7.0 % Basophils (%) (Auto) 0.7 0.0-2.0 % Neutrophils # (Auto) 5.9 1.6-8.6 10 ^3/uL Lymphocytes # (Auto) 0.3 L 0.4-5.4 10 ^3/uL Monocytes # (Auto) 1.0 0-1.3 10 ^3/uL Eosinophils # (Auto) 0.1 0-0.8 10 ^3/uL Basophils # (Auto) 0.1 0-0.2 10 ^3/uL Nucleated Red Blood Cells 0.1 % Prothrombin Time 11.4 9.3-11.8 sec Prothrombin Time INR 1.08 0.9-1.15 Activated Partial Thromboplast Time 29.6 24.5-34.5 SEC Sodium Level 136 136-145 mmol/L Potassium Level 5.8 *H 3.5-5.1 mmol/L Chloride Level 106 98-107 mmol/L Carbon Dioxide Level 26 20-31 mmol/L Anion Gap 4 L 5-15 Blood Urea Nitrogen 34 H 9-23 mg/dL Creatinine 4.97 H 0.700-1.30 mg/dL Glomerular Filtration Rate Calc 13 >90 mL/min BUN/Creatinine Ratio 6.8 L 10.0-20.0 Serum Glucose 71 L 74-106 mg/dL Calcium Level 8.7 8.7-10.4 mg/dL Total Bilirubin 0.2 0.2-1.0 mg/dL Aspartate Amino Transferase (AST) 30 13-40 U/L Alanine Aminotransferase (ALT) 19 7-40 U/L Alkaline Phosphatase 97 46-116 U/L Ammonia 35 H 11-32 umol/L Total Protein 6.5 5.7-8.2 g/dL Albumin 3.4 3.2-4.8 g/dL Lactate Dehydrogenase 216 120-246 U/L Test 07/18/24 23:20 07/18/24 21:41 07/18/24 20:38 Range/Units Lactic Acid Level 0.9 0.4-2.0 mmol/L Troponin I High Sensitivity 22 </=54 ng/L B-Type Natriuretic Peptide 1020.58 0-100 pg/mL Platelet Estimate Decreased Hypochromasia (manual) Moderate Anisocytosis (manual) Moderate Microcytosis Moderate Ovalocytes Many Phosphorus Level 2.4 2.4-5.1 mg/dL Magnesium Level 1.6 1.6-2.6 mg/dL Assessment/Plan Assessment/Plan Assessment # acute hypoxic respiratory failure likely due to massive ascites versus p neumonia # sepsis likely due to ?SBP ?pneumonia # massive ascites, h/o liver cirrhosis, MELD-Na 22 # ?Spontaneous bacterial peritonitis # ?Hepatic encephalopathy, ammonia elevated # ?Hepatorenal syndrome # community acquired pneumonia likely due to ?viral Gram +/-bacteria # suspected acute exacerbation of heart failure with diastolic dysfunction # ESRD on dialysis # hyperkalemia likely due to ESRD # microcytic hypochromic anemia # peripheral neuropathy - CT abdomen pelvis without contrast shows 1.Cirrhosis and portal hypertension with moderate to large volume ascites, mild splenomegaly, and portosystemic collateral vessels. 2. [id number] bilateral lower lobe consolidations with air bronchograms. DDX includes atelectasis and/or pneumonia which could be on the basis of aspiration. 3. Small bilateral pleural effusions and moderate body wall edema. 4. Mild cardiomegaly. 5. Anemia suggested. Correlate with CBC. 6. Cholelithiasis. 7. Nonobstructing bilateral renal calculi. 8. Mild wall thickening of the large bowel most pronounced proximally which could be related to underlying portal hypertension or colitis Plan - on 4 L oxygen via nasal cannula, SpO2 greater than 92% - paracentesis done with 7 L ascitic fluid adalgisa colored removed and sample sent for fluid albumin, cell count, differential, bacteria culture, LDH - SAAG pending - given albumin 25 g given - on furosemide 80 mg IV daily, spironolactone held because of hyperkalemia - on cefepime 1 g IV daily and vancomycin IV per pharmacy - blood culture, MRSA, the respiratory culture pending - lactulose 30 mL daily, goal 2-3 soft bowel movements - duo nebs p.r.n. - for hyperkalemia, albuterol, 1 amp sodium bicarb, 10mg Lokelma given, monitor BMP - patient gets dialysis Tuesday, nephrology consulted - urine sodium, creatinine, urinalysis - monitor H&Hecho - on mechanical soft diet - gabapentin 300 mg b.i.d.., tramadol 50 mg q.12 hours p.r.n. for pain Goals of care discussed with the patient for over 33 minutes. Full code Plan discussed with Dr. Montague Plan discussed with: Patient My Orders Orders - SHRUTI ORELLANA RESIDENT Procedure Category Date Status Time Admit ADMIT 07/19/24 Transmitted 01:55 Oxygen By Nasal RT 07/19/24 Transmitted Cannula 01:55 Notify Of Changes JHONATAN 07/19/24 In Process From [place] 01:55 Addictions Recovery Specialist For [facility] 07/19/24 In Process 24 Hours 01:55 Emergency Dysrhythmia [facility] 07/19/24 In Process Protocol 01:55 Urinalysis LAB 07/19/24 Logged 01:59 Urine Sodium LAB 07/19/24 Logged 01:59 Urine LAB 07/19/24 Logged Protein/Creatinine *Dr. [facility] CONS 07/19/24 Transmitted -[place] 01:59 Covid19 Antigen Nga LAB 07/19/24 In Process Rapid Influenza A&B LAB 07/19/24 In Process 01:59 Mrsa Screen DIOMEDES 07/19/24 In Process 01:59 Paracentesis BD 07/19/24 Transmitted 01:59 Albumin; Body Fluid LAB 07/19/24 In Process 02:32 Body Fluid Ph LAB 07/19/24 In Process 02:32 Body Fluid Culture W/ DIOMEDES 07/19/24 In Process GS 02:45 Body Fluids, Diff. LAB 07/19/24 In Process Cell Count 02:32 Lactate LAB 07/19/24 In Process Dehydrogenase, Fluid 02:32 Protein, Body Fluid LAB 07/19/24 In Process 02:32 Furosemide Injection PHA 07/19/24 In Process (Lasix Injection) 06:00 Furosemide Injection PHA 07/20/24 In Process (Lasix Injection) 10:00 Tramadol Hcl (Ultram) PHA 07/19/24 In Process 02:45 Gabapentin Capsule PHA 07/19/24 In Process (Neurontin Capsule) 10:00 Lactulose Oral PHA 07/19/24 In Process 10:00 Cefepime 1gm/ 50ml PHA 07/20/24 In Process (Maxipime 1gm/50ml) 09:00 Vancomycin Per PHA 07/19/24 Pending Pharmacy 10:00 Respiratory Culture DIOMEDES 07/19/24 In Process W/ Gs 03:30 Drug Screen LAB 07/19/24 Logged 03:02 Electrocardigram EKG 07/19/24 Logged 03:34 Complete Blood Count LAB 07/19/24 Logged 08:00 Comprehensive LAB 07/19/24 Logged Metabolic Panel 08:00 Albuterol Medneb PHA 07/19/24 In Process (Ventolin Medneb) 05:00 Sodium Bicarb PHA 07/19/24 In Process 50meq/50ml Syr 05:00 Date of Service: Jul 19, 2024 Billing Provider: OBDULIO MONTAGUE MD Common Visit Codes: [id number] INP/OBS CARE (HIGH) SHRUTI ORELLANA RESIDENT Jul 19, 2024 04:56 OBDULIO MONTAGUE MD Jul 19, 2024 11:52
[2024-07-19 05:01] LABS: Rapid Influenza A Negative (Negative); Rapid Influenza B Negative (Negative)
[2024-07-19 05:02] LABS: COVID19 ANTIGEN SOFIA FIA NEGATIVE (NEGATIVE)
[2024-07-19] MEDS: ALBUTEROL SULF 2.5 MG/0.5ML(0.5%) NEB SOLN NEB ONE (05:05)
[2024-07-19] MEDS: SODIUM BICARB 8.4% 50Meq/50ml SYR INJ IV ONE (05:06)
[2024-07-19 05:30] LABS: Body Fluid Polymorphonuclear 5 % (0-25)
[2024-07-19] MEDS: FUROSEMIDE 100 MG/10ML VIAL IV ONE (06:03)
[2024-07-19 06:15] LABS: Anisocytosis Moderate; Hypochromia Moderate; Large Platelets FEW; Ovalocytes MODERATE; Platelet Estimate Decreased
--- NOTE | 2024-07-19 07:12 | ECG ---
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
--- NOTE | 2024-07-19 07:13 | ECG ---
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
[2024-07-19 07:35] VITALS: PULSE 107; RESP 18; O2SAT 94
[2024-07-19] MEDS: ACETAMINOPHEN IV 1000 MG/100ML (10MG/ML) IV ONE (07:37)
[2024-07-19 09:15] LABS: Basophils # (auto) 0 10 ^3/uL (0-0.2); Basophils % (auto) 0.8 % (0.0-2.0); Eosinophils # (auto) 0 10 ^3/uL (0-0.8); Lymphocytes # (auto) 0.2 10 ^3/uL (0.4-5.4); Monocytes # (auto) 0.4 10 ^3/uL (0-1.3)
[2024-07-19 09:17] LABS: Eosinophils % (auto) 0.7 % (0.0-7.0); Hematocrit 19.6 % (41.0-53.0); Lymphocytes % (auto) 4.7 % (10.0-50.0); Mean Corpuscular Hemoglobin 22.8 pg (28.0-32.0); Mean Corpuscular Hgb Conc. 31.3 g/dL (32.0-36.0); Mean Corpuscular Volume 72.8 fL (80.0-100.0); Monocytes % (auto) 8.9 % (0.0-12.0); Neutrophils % (auto) 84.9 % (37.0-80.0); Nucleated Red Blood Cells % 0.1 %; Red Blood Cells 2.69 10^6/uL (4.5-5.90); White Blood Cell 4.7 10^3/uL (4.4-10.8)
[2024-07-19 09:24] LABS: Red Cell Distribution Width 24.8 % (11.8-14.3)
[2024-07-19 09:32] LABS: Hemoglobin 6.1 g/dL (13.5-17.5)
[2024-07-19 09:33] LABS: Alanine Aminotransferase 18 U/L (7-40); Alkaline Phosphatase 74 U/L (46-116); Anion Gap 7 (5-15); BUN/Creatinine Ratio 6.9 (10.0-20.0); Carbon Dioxide 27 mmol/L (20-31); Chloride 106 mmol/L (98-107); Sodium 140 mmol/L (136-145)
[2024-07-19 09:34] LABS: Aspartate Aminotransferase 30 U/L (13-40); Total Protein 5.7 g/dL (5.7-8.2)
[2024-07-19 09:37] LABS: Albumin 3.1 g/dL (3.2-4.8); Bilirubin, Total 0.2 mg/dL (0.2-1.0); Blood Urea Nitrogen 36 mg/dL (9-23); Calcium 8.5 mg/dL (8.7-10.4)
[2024-07-19 09:38] LABS: Glucose 49 mg/dL (74-106); Potassium 5.8 mmol/L (3.5-5.1)
[2024-07-19] MEDS: CALCIUM GLUC 1,000mg/50ml-NS 50 ML IV ONE (09:50)
[2024-07-19] MEDS ORDERED: VANCOMYCIN PER PHARMACY 0 MG IV SCH (10:00)
[2024-07-19] MEDS ORDERED: SPIRONOLACTONE 25 MG TAB PO SCH ×2 (10:00)
[2024-07-19] MEDS ORDERED: DEXTROSE (50%) 50ML SYRG IV PRN (10:15)
[2024-07-19] MEDS: LACTULOSE 20Gm/30ML SOLN PO SCH (10:18)
[2024-07-19] MEDS: GABAPENTIN 300 MG CAP PO SCH (10:18)
[2024-07-19 11:06] LABS: Anisocytosis Moderate; Hypochromia Moderate; Ovalocytes MODERATE
[2024-07-19 11:07] LABS: Tear Drop Cells FEW
[2024-07-19 11:08] LABS: Giant Platelets Few; Platelet Estimate Decreased
[2024-07-19 11:12] LABS: Platelet Count (auto) 48 10^3/uL (140-450)
--- NOTE | 2024-07-19 11:14 | DVHINCON2 ---
Date of service: Jul 19, [address] Hamm Reason for Consultation End-stage renal disease to manage hemodialysis History of Present Illness Patient is a 58-year-old male with past medical history significant for stage renal disease on hemodialysis, DM, HTN, Liver cirrhosis is admitted for increasing abdominal girth and distention that causing him shortness of breath. Nephrology is consulted to manage his hemodialysis Past Medical History PAST MEDICAL HISTORY: DM, HTN, Liver cirrhosis End-stage renal disease on hemodialysis Past Surgical History Hernia repair Tunneled IJ hemodialysis catheter Allergies: Coded Allergies: Penicillins (Verified Allergy, Unknown, 05/09/17) Home Meds Active Scripts Furosemide (Lasix) 40 Mg Tab, 40 MG PO DAILY for 90 Days, #90 TAB Prov:THOMAS WATSON RESIDENT 02/07/24 Spironolactone (Spironolactone) 100 Mg Tab, 50 TAB PO DAILY, #90 TAB 3 Refills Prov:THOMAS WATSON RESIDENT 02/07/24 Lactulose (Lactulose) 10 Gm/15 Ml Chastity, 30 ML PO DAILY for 90 Days, #90 ML Prov:THOMAS WATSON RESIDENT 02/07/24 Reported Medications Tramadol Hcl (Tramadol Hcl) 50 Mg Tab, 1 TAB PO QID PRN for PAIN SCALE 7 THRU 10 02/04/24 Amlodipine Besylate (Amlodipine Besylate) 10 Mg Tab, 1 TAB PO DAILY 02/04/24 Metoprolol Succinate (Metoprolol Succinate Er) 50 Mg Tab, 1 TAB PO DAILY 02/04/24 Lactulose (Lactulose) 10 Gm/15 Ml Chastity, 15 ML PO TID 02/04/24 Furosemide (Furosemide) 40 Mg Tab, 1 TAB PO BID 02/04/24 Gabapentin (Gabapentin) 400 Mg Cap, 1 CAP PO TID 06/12/22 Insulin Syringe/Needle U-100 (Bd Insulin Syringe/U-100/) 0.5 Mg/30 G Mis, QID 02/07/22 Insulin Regular (Human) (Humulin R) 100 Unit/Ml Inj, 20 UNIT SC, INJ 06/04/20 Current Medications Current Medications Medications (Trade) Dose Ordered Sig/Christian Route PRN Reason Start Time Stop Time Status Last Admin Furosemide (Lasix Injection) 80 mg DAILY IV 07/20/24 10:00 Spironolactone (Aldactone) 100 mg DAILY PO 07/19/24 10:00 07/19/24 04:07 DC Tramadol HCl (Ultram) 50 mg Q12HP PRN PO MODERATE PAIN (4-6 PAIN SCALE) 07/19/24 02:45 Gabapentin (Neurontin Capsule) 300 mg BID PO 07/19/24 10:00 07/19/24 10:18 Lactulose 30 ml DAILY PO 07/19/24 10:00 07/19/24 10:18 Cefepime HCl 50 ml @ 12.5 mls/hr DAILY IV 07/20/24 09:00 07/19/24 10:38 DC Vancomycin HCl 0 ml @ 0 mls/hr UD IV 07/19/24 10:00 07/19/24 10:38 DC Spironolactone (Aldactone) 50 mg DAILY PO 07/19/24 10:00 07/19/24 04:53 DC Diagnostic Test (Pha) (Accu-Chek Comfort Curve T) 1 strip IQ4HR 07/19/24 12:00 07/19/24 12:14 Insulin Human Regular (InsuLIN R) IQ4HR SC 07/19/24 12:00 Dextrose 50 ml UD PRN IV Blood Sugar LESS THAN 60 07/19/24 10:15 Pantoprazole Sodium (Protonix) 40 mg BID IV 07/19/24 22:00 Doxycycline Hyclate 250 ml @ 125 mls/hr Q12H IV 07/19/24 10:45 07/19/24 12:03 Piperacillin Sod/ Tazobactam Sod 100 ml @ 25 mls/hr Q12HR IV 07/19/24 22:00 UNV Piperacillin Sod/ Tazobactam Sod 50 ml @ 12.5 mls/hr Q12HR IV 07/19/24 22:00 Midodrine (Proamatine Tablet) 10 mg TID@0600,1200,1800 PO 07/19/24 12:00 07/19/24 12:17 Family History: Diabetes mellitus G8 MOTHER G8 FATHER Review of Systems All 12 item review of systems reviewed with the patient nonsignificant except what is mentioned in the history of present illness H&P Exam Vital Signs/I&O Vital Sign Date Time Temp Pulse Resp B/P (MAP) Pulse Ox O2 Delivery O2 Flow Rate FiO2 07/19/24 12:00 92 16 105/51 (69) 92 07/19/24 10:08 98.4 98.4 07/19/24 07:35 Nasal Cannula* 2 28 Intake and Output 07/18/24 07/19/24 19:00 07:00 Intake Total 350.0 ml Balance 350.0 ml Intake IV Total 350.0 ml Physical Exam Patient is awake appeared in no acute distress Lungs clear to auscultation bilaterally Cardiac exam regular rate and rhythm Abdomen is distended bowel sounds are present was normal Extremity 1+ edema Neuro nonfocal Labs/Diagnostic Data Labs/Diagnostic Data Laboratory Tests Test 07/19/24 12:12 07/19/24 12:09 07/19/24 09:28 07/19/24 09:08 Range/Units Reticulocyte Count (auto) 1.75 H 0.5-1.5 % Ammonia 25 11-32 umol/L Plasma/Serum Blood Alcohol 5.3 <10 mg/dL POC Glucose 67 L 132 H 51 L 70-106 mg/dl Test 07/19/24 09:07 07/19/24 08:53 07/19/24 04:00 07/19/24 03:00 Range/Units POC Glucose 46 *L 70-106 mg/dl White Blood Count 4.7 # 4.4-10.8 10^3/uL Red Blood Count 2.69 L 4.5-5.90 10^6/uL Hemoglobin 6.1 #*L 13.5-17.5 g/dL Hematocrit 19.6 #L 41.0-53.0 % Mean Corpuscular Volume 72.8 L 80.0-100.0 fL Mean Corpuscular Hemoglobin 22.8 L 28.0-32.0 pg Mean Corpuscular Hemoglobin Concent 31.3 L 32.0-36.0 g/dL Red Cell Distribution Width 24.8 H 11.8-14.3 % Platelet Count 48 #L 140-450 10^3/uL Mean Platelet Volume 8.8 6.9-10.8 fL Neutrophils (%) (Auto) 84.9 H 37.0-80.0 % Lymphocytes (%) (Auto) 4.7 L 10.0-50.0 % Monocytes (%) (Auto) 8.9 0.0-12.0 % Eosinophils (%) (Auto) 0.7 0.0-7.0 % Basophils (%) (Auto) 0.8 0.0-2.0 % Neutrophils # (Auto) 4.0 1.6-8.6 10 ^3/uL Lymphocytes # (Auto) 0.2 L 0.4-5.4 10 ^3/uL Monocytes # (Auto) 0.4 0-1.3 10 ^3/uL Eosinophils # (Auto) 0 0-0.8 10 ^3/uL Basophils # (Auto) 0 0-0.2 10 ^3/uL Nucleated Red Blood Cells 0.1 % Platelet Estimate Decreased Giant Platelets Few Hypochromasia (manual) Moderate Poikilocytosis (manual) Slight Anisocytosis (manual) Moderate Microcytosis Moderate Tear Drop Cells Few Ovalocytes Moderate Schistocytes Few Sodium Level 140 136-145 mmol/L Potassium Level 5.8 *H 3.5-5.1 mmol/L Chloride Level 106 98-107 mmol/L Carbon Dioxide Level 27 20-31 mmol/L Anion Gap 7 5-15 Blood Urea Nitrogen 36 H 9-23 mg/dL Creatinine 5.20 H 0.700-1.30 mg/dL Glomerular Filtration Rate Calc 12 >90 mL/min BUN/Creatinine Ratio 6.9 L 10.0-20.0 Serum Glucose 49 *L 74-106 mg/dL Lactic Acid Level 0.9 0.4-2.0 mmol/L Calcium Level 8.5 L 8.7-10.4 mg/dL Total Bilirubin 0.2 0.2-1.0 mg/dL Aspartate Amino Transferase (AST) 30 13-40 U/L Alanine Aminotransferase (ALT) 18 7-40 U/L Alkaline Phosphatase 74 46-116 U/L Total Protein 5.7 5.7-8.2 g/dL Albumin 3.1 L 3.2-4.8 g/dL Influenza Type A Antigen Negative Negative Influenza Type B Antigen Negative Negative SARS-CoV-2 Antigen (Rapid) Negative NEGATIVE Body Fluid Source Ascites fluid Body Fluid pH 8.0 Body Fluid WBC (Manual) 98 0-200 CUMM Body Fluid RBC (Manual) 0 0-2000 CUMM Body Fluid Mononuclear Cells 95 % Body Fluid Polymorphonuclear Cells 5 0-25 % Test 07/19/24 02:23 07/19/24 02:22 07/18/24 23:20 07/18/24 21:41 Range/Units White Blood Count 7.3 4.4-10.8 10^3/uL Red Blood Count 3.30 L 4.5-5.90 10^6/uL Hemoglobin 7.3 L 13.5-17.5 g/dL Hematocrit 24.4 L 41.0-53.0 % Mean Corpuscular Volume 74.1 L 80.0-100.0 fL Mean Corpuscular Hemoglobin 22.2 L 28.0-32.0 pg Mean Corpuscular Hemoglobin Concent 29.9 L 32.0-36.0 g/dL Red Cell Distribution Width 25.5 H 11.8-14.3 % Platelet Count 113 L 140-450 10^3/uL Mean Platelet Volume 8.4 6.9-10.8 fL Neutrophils (%) (Auto) 80.1 H 37.0-80.0 % Lymphocytes (%) (Auto) 4.2 L 10.0-50.0 % Monocytes (%) (Auto) 13.1 H 0.0-12.0 % Eosinophils (%) (Auto) 1.9 0.0-7.0 % Basophils (%) (Auto) 0.7 0.0-2.0 % Neutrophils # (Auto) 5.9 1.6-8.6 10 ^3/uL Lymphocytes # (Auto) 0.3 L 0.4-5.4 10 ^3/uL Monocytes # (Auto) 1.0 0-1.3 10 ^3/uL Eosinophils # (Auto) 0.1 0-0.8 10 ^3/uL Basophils # (Auto) 0.1 0-0.2 10 ^3/uL Nucleated Red Blood Cells 0.1 % Platelet Estimate Decreased Large Platelets Few Hypochromasia (manual) Moderate Poikilocytosis (manual) Slight Anisocytosis (manual) Moderate Microcytosis Moderate Ovalocytes Moderate Schistocytes Few Prothrombin Time 11.4 9.3-11.8 sec Prothrombin Time INR 1.08 0.9-1.15 Activated Partial Thromboplast Time 29.6 24.5-34.5 SEC Sodium Level 136 136-145 mmol/L Potassium Level 5.8 *H 3.5-5.1 mmol/L Chloride Level 106 98-107 mmol/L Carbon Dioxide Level 26 20-31 mmol/L Anion Gap 4 L 5-15 Blood Urea Nitrogen 34 H 9-23 mg/dL Creatinine 4.97 H 0.700-1.30 mg/dL Glomerular Filtration Rate Calc 13 >90 mL/min BUN/Creatinine Ratio 6.8 L 10.0-20.0 Serum Glucose 71 L 74-106 mg/dL Calcium Level 8.7 8.7-10.4 mg/dL Phosphorus Level 3.2 2.4-5.1 mg/dL Total Bilirubin 0.2 0.2-1.0 mg/dL Aspartate Amino Transferase (AST) 30 13-40 U/L Alanine Aminotransferase (ALT) 19 7-40 U/L Alkaline Phosphatase 97 46-116 U/L Ammonia 35 H 11-32 umol/L Total Protein 6.5 5.7-8.2 g/dL Albumin 3.4 3.2-4.8 g/dL Lactate Dehydrogenase 216 120-246 U/L Lactic Acid Level 0.9 0.4-2.0 mmol/L Troponin I High Sensitivity 22 19 </=54 ng/L B-Type Natriuretic Peptide 1020.58 0-100 pg/mL Test 07/18/24 20:38 Range/Units White Blood Count 6.8 4.4-10.8 10^3/uL Red Blood Count 3.23 L 4.5-5.90 10^6/uL Hemoglobin 7.3 L 13.5-17.5 g/dL Hematocrit 23.8 L 41.0-53.0 % Mean Corpuscular Volume 73.6 L 80.0-100.0 fL Mean Corpuscular Hemoglobin 22.5 L 28.0-32.0 pg Mean Corpuscular Hemoglobin Concent 30.6 L 32.0-36.0 g/dL Red Cell Distribution Width 25.5 H 11.8-14.3 % Platelet Count 106 L 140-450 10^3/uL Mean Platelet Volume 8.7 6.9-10.8 fL Neutrophils (%) (Auto) 78.8 37.0-80.0 % Lymphocytes (%) (Auto) 5.0 L 10.0-50.0 % Monocytes (%) (Auto) 12.4 H 0.0-12.0 % Eosinophils (%) (Auto) 3.4 0.0-7.0 % Basophils (%) (Auto) 0.4 0.0-2.0 % Neutrophils # (Auto) 5.3 1.6-8.6 10 ^3/uL Lymphocytes # (Auto) 0.3 L 0.4-5.4 10 ^3/uL Monocytes # (Auto) 0.8 0-1.3 10 ^3/uL Eosinophils # (Auto) 0.2 0-0.8 10 ^3/uL Basophils # (Auto) 0 0-0.2 10 ^3/uL Nucleated Red Blood Cells 0.1 % Platelet Estimate Decreased Hypochromasia (manual) Moderate Anisocytosis (manual) Moderate Microcytosis Moderate Ovalocytes Many Sodium Level 138 136-145 mmol/L Potassium Level 5.4 H 3.5-5.1 mmol/L Chloride Level 107 98-107 mmol/L Carbon Dioxide Level 25 20-31 mmol/L Anion Gap 6 5-15 Blood Urea Nitrogen 28 H 9-23 mg/dL Creatinine 4.68 H 0.700-1.30 mg/dL Glomerular Filtration Rate Calc 14 >90 mL/min BUN/Creatinine Ratio 6.0 L 10.0-20.0 Serum Glucose 103 74-106 mg/dL Calcium Level 8.4 L 8.7-10.4 mg/dL Phosphorus Level 2.4 2.4-5.1 mg/dL Magnesium Level 1.6 1.6-2.6 mg/dL Troponin I High Sensitivity 17 </=54 ng/L Assessment End-stage renal disease on hemodialysis Decompensated liver cirrhosis with ascites Hyperkalemia iatrogenic Chronic diastolic heart failure Diabetes mellitus type 2 Hypoglycemia Hypotension Precipitous drop in hemoglobin Rule out GI bleed Recommendations Hemodialysis today, use no heparin Medical treatment for hyperkalemia DC spironolactone Midodrine 10 mg p.o. t.i.d. Packed red blood cell transfusion Paracentesis GI consult We will continue to follow Patient seen and examined by myself. I discussed my plan of care with the patient and primary nurse at the bedside I would like to thank for the consult, will follow up Plan discussed with: Patient STEFANO HARVEY MD Jul 19, 2024 11:14
[2024-07-19] MEDS: InsuLIN REG 1unit/0.01ml Soln (100units/ml) SC SCH (12:00)
[2024-07-19] MEDS: ACCU-CHEK COMFORT CURVE STRIP VI SCH (12:14)
[2024-07-19] MEDS: MIDODRINE HCL 10 MG TAB PO SCH (12:17)
[2024-07-19 15:50] VITALS: BP 122/61; PULSE 103; RESP 18; TEMP 99.3
[2024-07-19 16:10] VITALS: BP 112/68; PULSE 99; RESP 16; TEMP 99.5
--- NOTE | 2024-07-19 17:23 | DVHPNRES ---
Progress Note Date Seen: Jul 19, 2024 Resident Creating Document: MAURICE VILLEGAS KESHAWN Has the PT tested + for MRSA If YES, has PT been informed?: Yes Medical Necessity Reason Pt with a Central, PICC or Fol: No Subjective Review of Systems Patient is a 58-year-old male with a known past medical history of liver cirrhosis, kidney failure on dialysis, type 2 diabetes mellitus, suspected heart failure came to the ED with a chief complaint of worsening shortness of breath and abdominal swelling. Patient reports that about 2 weeks ago he got his last paracentesis when the 8-9 L of ascitic fluid was removed. About a week ago he again was admitted to the [facility] for worsening abdominal swelling but a paracentesis was not done. In the last week he also had flu-like symptoms of cough with expectoration, chills and worsening shortness of breath. Patient was brought to the ED for further evaluation. Past medical history: Liver cirrhosis( hep C antibody positive as per records) , kidney failure on dialysis, type 2 diabetes mellitus, ? Diastolic heart failure Past surgical history: None Social history: Lives with his caregiver.Currently smokes about 3 cigarettes per day, denies current drug usage or alcohol consumption. Patient has previous history of methamphetamine use and IV drug use. Home medication: Amlodipine 10 mg q.d., furosemide 40 mg b.i.d., gabapentin 400 mg t.i.d., insulin 20U, lactulose, metoprolol succinate 50 mg q.d., spironolactone 50 mg q.d., tramadol for pain Patient seen and examined at the bedside with the patient is feeling better since admission. Due to low BP patient was the upgraded to the [facility] Patient reports: No new complaints, Feels better Changes from previous H/P or p: Changes Objective vital signs Vital Sign Date Time Temp Pulse Resp B/P (MAP) Pulse Ox O2 Delivery O2 Flow Rate FiO2 07/19/24 16:10 99.5 99 16 112/68 99.5 07/19/24 16:00 97 07/19/24 07:35 Nasal Cannula* 2 28 Total Intake and Output 07/18/24 07/18/24 07/19/24 15:00 23:00 07:00 Intake Total 350.0 ml Balance 350.0 ml medications Current Medications Medications Dose Ordered Sig/Christian Route Start Time Stop Time Status Last Admin Dose Admin Furosemide 80 mg DAILY IV 07/20/24 10:00 Tramadol HCl 50 mg Q12HP PRN PO 07/19/24 02:45 Gabapentin 300 mg BID PO 07/19/24 10:00 07/19/24 10:18 300 MG Lactulose 30 ml DAILY PO 07/19/24 10:00 07/19/24 10:18 30 ML Diagnostic Test (Pha) 1 strip IQ4HR 07/19/24 12:00 07/19/24 16:11 1 STRIP Insulin Human Regular IQ4HR SC 07/19/24 12:00 Dextrose 50 ml UD PRN IV 07/19/24 10:15 Pantoprazole Sodium 40 mg BID IV 07/19/24 22:00 Doxycycline Hyclate 250 ml @ 125 mls/hr Q12H IV 07/19/24 10:45 07/19/24 12:03 125 MLS/HR Piperacillin Sod/ Tazobactam Sod 100 ml @ 25 mls/hr Q12HR IV 07/19/24 22:00 UNV Piperacillin Sod/ Tazobactam Sod 50 ml @ 12.5 mls/hr Q12HR IV 07/19/24 22:00 Midodrine 10 mg TID@0600,1200,1800 PO 07/19/24 12:00 07/19/24 12:17 10 MG Examination General Appearance: Alert, Oriented X3, Cooperative, No acute distress HEENT: Atraumatic, PERRLA, EOMI, Mucous membrane moist/pink Respiratory: Clear to auscultation, Normal air movement Cardiovascular: Regular rate, Normal S1, Normal S2, No murmurs, no chest wall tenderness Abdominal: Normal bowel sounds, Soft, No tenderness, No hepatospenomegaly, No masses Extremities: No clubbing, No cyanosis, No edema, Normal pulses, No tenderness/swelling Skin: No rashes, No breakdown, No significant lesion Neuro: Normal gait, Normal speech, Strength at 5/5 X4 ext, Normal tone, Sensation intact, Cranial nerves 3-12 NL, Reflexes 2+ Psych/Mental Status: Mental status NL, Mood NL laboratory and microbiology Laboratory Tests 07/19/24 08:53 Test 07/19/24 08:53 Range/Units Serum Glucose 49 *L 74-106 mg/dL Microbiology Date/Time Source Procedure Growth Status 07/19/24 04:00 Nose MRSA Screen - Final Complete Labs and/or images reviewed: Labs reviewed by me, Image(s) reviewed by me Problem List/Assessment/Plan Problem List/Assessment/Plan Acute hypoxic respiratory failure, likely due to massive ascites/pneumonia /aspiration pneumonia Sepsis, likely due to pneumonia Pneumonia, likely due to Gram-positive Gram-negative bacteria/viral Chest x-ray shows bilateral lower zone infiltration Abdominal CT scan, showed [id number] bilateral lower lobe consolidation with air bronchogram, likely due to atelectasis/pneumonia/aspiration Sputum/blood/urine culture Influenza type a and B, and COVID-19 are negative MRSA screening Injection Zosyn and doxycycline Breathing treatment q.6 hours as needed Massive ascites, status post paracentesis, taken out similar to Hepatic encephalopathy Liver cirrhosis, likely due to alcoholic/Hepatitis Ruled out spontaneous bacterial pneumonitis, ascitic fluid WBCs are 90 ammonia is at 35 Furosemide 80 mg daily Spironolactone 50 mg daily Hypoglycemia D5W at 40 mL/hour Hypotension Midodrine 10 mg b.i.d. ESRD on maintenance hemodialysis Hyperkalemia, hyperkalemia protocol given Nephrology is on the board, planned for HD for tomorrow Thrombocytopenia, likely due to liver cirrhosis monitoring Mild protein malnutrition Serum albumin is 3.1 Next Severe anemia, microcytic hypochromic Hb decreased to 6, 1 pt of given Iron panel Fecal occult blood test negative DIET: Renal diet DVT PROPHYLAXIS: Because of CVA, no anticoagulant is indicated GI PROPHYLAXIS:: Protonix b.i.d. BOWEL REGIMEN: Lactulose 30 mL b.i.d. CODE STATUS: Goal of care discussed for more than 25 minutes, full code DISPOSITION: Do you status Active smoker: Patient was counseled for risk of smoking and smoking cessation for more than 27 minutes. Patient's status discussed with the patient. Case discussed with Dr. Jauregui Plan discussed with: Patient, Other (RN) My Orders My Orders Orders - MAURICE VILLEGAS Procedure Category Date Status Time Glucose Blood PHA 07/19/24 In Process (Accu-Chek Comfort 12:00 Insulin R (Human) PHA 07/19/24 In Process (Insulin R) 12:00 Dextrose 50% Syringe PHA 07/19/24 In Process 10:15 Doxycycline PHA 07/19/24 In Process 100mg/250ml 10:45 Piperacillin-Tazob PHA 07/19/24 In Process 2.25gm (Zosyn 2.25gm) 22:00 Transfer Orders XFER 07/19/24 Transmitted 15:30 D5w 5% PHA 07/19/24 Transmitted 17:30 CC Plasma Assessment Blood Product Administration S: [id number] Date of Service: Jul 19, 2024 Billing Provider: WAYNE RAINES MD Common Visit Codes: [id number] INP/OBS CARE(HIGH) Secondary Visit Codes: 48772-COIRE CHNG SMOKING >10MIN MAURICE VILLEGAS RESDIENT Jul 19, 2024 17:23 WAYNE RAINES MD Jul 20, 2024 09:18
--- NOTE | 2024-07-19 17:43 | DVHSR ---
APPROVED REPORT EXAM: Two-dimensional and M-mode echocardiogram with Doppler and color Doppler. Blood Pressure: 94/55 mmHg INDICATION SOB Anasarca RISK FACTORS Height: 6' 1", Weight: 165 DIMENSIONS LVDd4.0 (3.8-5.7cm)LA (2D)3.8 (1.9-4.0cm)Aortic Root3.2 (2.0-3.7cm) LVDs2.5 (2.5-4.0cm)LA (MM) (1.9-4.0cm)Aortic Cusp Exc2.0 (1.5-2.0cm) EF (%) 68.0 (55-70%)Rt. Atrium4.1 (1.9-4.0cm)Asc. Aorta cm IVSd1.1 (0.7-1.1cm)RV (D) (1.8-2.4cm) PWd1.1 (0.7-1.1cm) Mitral Valve MitralMitral Stenosis E wave1.10m/sMV Mean GR.mmHg A wave0.70m/sMV Peak GR.mmHg E/A ratio1.62D MVAcm2 Aortic Valve Aortic ValveAortic Stenosis V11.20m/Sandra Mean GR.5mmHg V21.50m/Sandra Peak GR.9mmHg LVOT Diameter2.2 (1.8-2.4cm)Doppler AVA3.04cm2 Pulmonic Valve V20.80m/s Tricuspid Valve TR Velocity2.60m/s [id number] Conclusion Normal left ventricular size and dimension. Normal left ventricular systolic function estimated ejec tion fraction 55%. There is a grade 1 diastolic dysfunction. Moderately dilated right ventricle. Moderately reduced left ventricular systolic function moderately elevated right ventricular systolic pressure at 50 mm of mercury. Normal biatrial size and dimension. Normal aortic valve structure and function. Normal mitral valve structure and function. Normal tricuspid valve structure and function. The pulmonary valve is grossly normal. No pericardial effusion.
[2024-07-19] MEDS: D5W 5% 1,000 ML IV SCH (18:09)
[2024-07-19 18:17] VITALS: BP 123/81; PULSE 98; RESP 18; TEMP 101
[2024-07-19] MEDS ORDERED: SPIRONOLACTONE 25 MG TAB PO ONE (20:00)
[2024-07-19 20:55] LABS: Hemoglobin 8.3 g/dL (13.5-17.5)
[2024-07-19] MEDS: SODIUM CHL 0.9% 1000 ML BAG XX ONE (20:55)
[2024-07-19 20:58] VITALS: BP 128/70; PULSE 99; RESP 18; O2SAT 95
[2024-07-19 21:12] LABS: % Iron Saturation 14.2 % (20-55)
[2024-07-19 21:20] LABS: Amphetamine Screen, Urine Neg (NEGATIVE); Barbiturate Scree,Urine Neg (NEGATIVE); Benzodiazephine Screen, Urine Neg (NEGATIVE); Cannabinoid Screen, Urine Neg (NEGATIVE); Cocaine Screen, Urine Neg (NEGATIVE); Creatinine, Urine 167.13 mg/dL (30.0-125.0); Opiate Scree,Urine Neg (NEGATIVE); Phencyclidine Screen, Urine Neg (NEGATIVE)
[2024-07-19 21:22] LABS: Urine Protein/Creatinine Ratio 1.55
[2024-07-19 21:23] LABS: Protein, Urine 258.3 mg/dL (1-14)
[2024-07-19 21:30] LABS: Urine Amorphous Crystal FEW /hpf (None Seen); Urine Bacteria FEW /hpf (None Seen); Urine Blood Negative /uL (Negative); Urine Clarity Turbid (Clear); Urine Color Yellow (Yellow); Urine Mucus FEW (None Seen); Urine Protein, UAD 2+ (Negative); Urine Specific Gravity 1.022 (1.001-1.035); Urine Squamous Epithelial Cell FEW /hpf (<5); Urine Urobilinogen Normal (Negative); Urine WBC 8 /hpf (0 - 3); Urine pH 5.5 (5.0-9.0)
[2024-07-19] MEDS: ALBUMIN 25% 100 ML IV PRN (21:43)
[2024-07-19] MEDS ORDERED: PIPERACILLIN-TAZOB 3.375GM 100 ML IV SCH (22:00)
[2024-07-20] VITALS (9 sets, daily range): BP systolic 139; BP diastolic 52; PULSE 85–98; RESP 12–24; O2SAT 91–97
[2024-07-20] MEDS: EPOETIN ALFA-EPBX 10,000 UNIT/1ML VIAL SC ONE (00:30)
[2024-07-20 03:05] LABS: Basophils # (auto) 0 10 ^3/uL (0-0.2); Eosinophils # (auto) 0 10 ^3/uL (0-0.8); Hemoglobin 7.3 g/dL (13.5-17.5); Monocytes # (auto) 0.5 10 ^3/uL (0-1.3); Neutrophils # (auto) 4.4 10 ^3/uL (1.6-8.6); Nucleated Red Blood Cells % 0.1 %; White Blood Cell 5.2 10^3/uL (4.4-10.8)
[2024-07-20 03:07] LABS: Basophils % (auto) 0.7 % (0.0-2.0); Eosinophils % (auto) 0.3 % (0.0-7.0); Hematocrit 23.2 % (41.0-53.0); Lymphocytes # (auto) 0.2 10 ^3/uL (0.4-5.4); Lymphocytes % (auto) 4.2 % (10.0-50.0); Mean Corpuscular Hgb Conc. 31.6 g/dL (32.0-36.0); Mean Corpuscular Volume 75.8 fL (80.0-100.0); Monocytes % (auto) 9.9 % (0.0-12.0); Neutrophils % (auto) 84.9 % (37.0-80.0); Platelet Count (auto) 111 10^3/uL (140-450); Red Blood Cells 3.06 10^6/uL (4.5-5.90)
[2024-07-20 03:13] LABS: Red Cell Distribution Width 27.2 % (11.8-14.3)
[2024-07-20 03:15] LABS: Alanine Aminotransferase 21 U/L (7-40); Albumin 3.5 g/dL (3.2-4.8); Alkaline Phosphatase 68 U/L (46-116); Anion Gap 6 (5-15); BUN/Creatinine Ratio 7.3 (10.0-20.0); Bilirubin, Total 0.5 mg/dL (0.2-1.0); Carbon Dioxide 28 mmol/L (20-31); Chloride 102 mmol/L (98-107); Glucose 99 mg/dL (74-106); Potassium 4.7 mmol/L (3.5-5.1)
[2024-07-20 03:22] LABS: Aspartate Aminotransferase 65 U/L (13-40); Blood Urea Nitrogen 30 mg/dL (9-23); Calcium 8.6 mg/dL (8.7-10.4); Sodium 136 mmol/L (136-145)
--- NOTE | 2024-07-20 04:04 | DVH ---
Examination: HWOCT CLINICAL INDICATION: ALOC COMPARISON: None. CONTRAST USED: None. TECHNIQUE: Plain CT examination was performed obtaining 2 mm slices in the axial plane. Sagittal and 3D reconstructions were also obtained. Technique for this CT scan was done using principles of ALARA (As Low As Reasonably Achievable). Multiplanar reconstructions were obtained. FINDINGS: SUPRATENTORIAL BRAIN: Cerebral Hemispheres: Few old lacunar infarcts are seen in bilateral ganglia capsular regions. No obv ious focal lesion is seen in the supratentorial region. There is no midline shift or mass effect, int ra or extra-axial fluid collections or hemorrhage. Periventricular White Matter/Basal Ganglia: No abnormal areas of altered attenuation within the periv entricular white matter or basal ganglia. POSTERIOR FOSSA: The brainstem is normal and the visualized cerebellar hemispheres are unremarkable. VENTRICULAR SYSTEM: There is generalized prominence of ventricular system and cortical sulci, suggest zeb of cerebral atrophy. There is no evidence of hydrocephalus or transependymal flow of cerebrospina l fluid. SKULL BASE AND PARASELLAR REGION: The skull base is normal with no parasellar masses or abnormalities identified. CALVARIUM AND SCALP REGION: No abnormality is seen. PARANASAL SINUSES: No significant inflammatory changes are identified in the paranasal sinuses. IMPRESSION: 1. Few old lacunar infarcts are seen in bilateral ganglia capsular regions and centrum semiovale. 2. Generalized prominence of ventricular system and cortical sulci, suggestive of cerebral atrophy. Electronically Signed 07/20/2024 04:03 Cuauhtemoc Zamudio
--- NOTE | 2024-07-20 04:40 | DVH ---
CHEST RADIOGRAPH Indication: DR REQUEST Technique: Single frontal view of the chest was obtained Comparison: XY CHEST PORTABLE on DOS: 07/18/24 FINDINGS: Lines and Tubes: Right central venous catheter terminates in the right atrium. Lungs: Diffuse bilateral opacities. Pleura: No effusion. No pneumothorax. Cardiomediastinal contours: Cardiomegaly. Bones: No acute osseous abnormality. IMPRESSION: 1. Interval development of bilateral pulmonary opacities which may reflect pulmonary edema.
[2024-07-20 05:58] LABS: Anisocytosis Moderate; Hypochromia Slight; Ovalocytes MODERATE; Platelet Estimate Decreased
[2024-07-20] MEDS: FUROSEMIDE 100 MG/10ML VIAL IV ONE ×2 (06:09→18:33)
[2024-07-20 06:33] LABS: Hematocrit 24.7 % (41.0-53.0); Hemoglobin 7.9 g/dL (13.5-17.5); Mean Corpuscular Hemoglobin 24.4 pg (28.0-32.0); Mean Corpuscular Hgb Conc. 31.9 g/dL (32.0-36.0); Mean Corpuscular Volume 76.5 fL (80.0-100.0); Platelet Count (auto) 114 10^3/uL (140-450); Red Blood Cells 3.23 10^6/uL (4.5-5.90); White Blood Cell 4.6 10^3/uL (4.4-10.8)
[2024-07-20 06:44] LABS: Alanine Aminotransferase 22 U/L (7-40); Albumin 3.4 g/dL (3.2-4.8); Alkaline Phosphatase 66 U/L (46-116); Anion Gap 8 (5-15); BUN/Creatinine Ratio 6.6 (10.0-20.0); Bilirubin, Total 0.3 mg/dL (0.2-1.0); Calcium 8.8 mg/dL (8.7-10.4); Carbon Dioxide 27 mmol/L (20-31); Chloride 101 mmol/L (98-107); Glucose 91 mg/dL (74-106); Potassium 4.8 mmol/L (3.5-5.1)
[2024-07-20 06:45] LABS: Aspartate Aminotransferase 76 U/L (13-40); Blood Urea Nitrogen 29 mg/dL (9-23); Sodium 136 mmol/L (136-145)
[2024-07-20 07:18] LABS: Basophils % (manual) 0 (0.0-2.0); Blast Cells 0; Eosinophils % (manual) 0 (0-7); Metamyelocytes % 0; Myelocytes % 0; Promyelocytes % 0; Reactive Lymphocytes 0
[2024-07-20] MEDS ORDERED: CEFEPIME 1GM/ 50ML 50 ML IV SCH (09:00)
[2024-07-20 09:08] LABS: Anisocytosis Moderate; Band Neutrophils % (manual) 1; Hypochromia Slight; Lymphocytes % (manual) 8 (10.0-50.0); Monocytes % (manual) 9 (0-12); Platelet Estimate Decreased; Tear Drop Cells FEW
[2024-07-20 09:09] LABS: Ovalocytes FEW
[2024-07-20] MEDS ORDERED: SPIRONOLACTONE 25 MG TAB PO SCH (10:00)
[2024-07-20 10:06] LABS: Albumin, Body Fluid 1.6 g/dL (Not Estab.); Protein, Body Fluid 2.8 g/dL (.)
[2024-07-20] MEDS ORDERED: TORS20TA20 PO (10:37)
[2024-07-20] MEDS ORDERED: CARV12.544 PO (10:37)
[2024-07-20] MEDS ORDERED: METF-372 PO (10:37)
[2024-07-20] MEDS ORDERED: ASPI-316 PO (10:37)
[2024-07-20] MEDS ORDERED: TRAZ-227 PO (10:37)
[2024-07-20] MEDS ORDERED: GLIP10TA9 PO (10:37)
[2024-07-20] MEDS ORDERED: PANT40T PO (10:37)
[2024-07-20] MEDS ORDERED: INSU1INJ3 SC (10:37)
[2024-07-20] MEDS ORDERED: LOSA-535 PO (10:37)
[2024-07-20] MEDS ORDERED: FERR325T20 PO (10:37)
[2024-07-20] MEDS ORDERED: SPIR25TA8 PO (10:37)
[2024-07-20] MEDS: FUROSEMIDE 100 MG/10ML VIAL IV SCH (10:40)
[2024-07-20] MEDS: IPRATROPIUM BROM 0.5 MG/2.5ML INH SOL NEB PRN (10:57)
[2024-07-20] MEDS: ALBUTEROL SULF 2.5 MG/0.5ML(0.5%) NEB SOLN NEB PRN (10:57)
[2024-07-20] MEDS: LACTULOSE 10g/15ml SOLN 473ML PR SCH (11:45)
[2024-07-20] MEDS: hydrALAZINE HCL 10 MG TAB PO PRN (14:51)
--- NOTE | 2024-07-20 16:32 | DVHPNRES ---
Progress Note Date Seen: Jul 20, 2024 Resident Creating Document: MAURICE VILLEGAS KESHAWN Has the PT tested + for MRSA If YES, has PT been informed?: Yes Medical Necessity Reason Pt with a Central, PICC or Fol: No Subjective Review of Systems Patient is a 58-year-old male with a known past medical history of liver cirrhosis, kidney failure on dialysis, type 2 diabetes mellitus, suspected heart failure came to the ED with a chief complaint of worsening shortness of breath and abdominal swelling. Patient reports that about 2 weeks ago he got his last paracentesis when the 8-9 L of ascitic fluid was removed. About a week ago he again was admitted to the [facility] for worsening abdominal swelling but a paracentesis was not done. In the last week he also had flu-like symptoms of cough with expectoration, chills and worsening shortness of breath. Patient was brought to the ED for further evaluation. Past medical history: Liver cirrhosis( hep C antibody positive as per records) , kidney failure on dialysis, type 2 diabetes mellitus, ? Diastolic heart failure Past surgical history: None Social history: Lives with his caregiver.Currently smokes about 3 cigarettes per day, denies current drug usage or alcohol consumption. Patient has previous history of methamphetamine use and IV drug use. Home medication: Amlodipine 10 mg q.d., furosemide 40 mg b.i.d., gabapentin 400 mg t.i.d., insulin 20U, lactulose, metoprolol succinate 50 mg q.d., spironolactone 50 mg q.d., tramadol for pain Patient seen and examined at the bedside with the patient is feeling better since admission. Patient reports: Feels worse Changes from previous H/P or p: Changes Objective vital signs Vital Sign Date Time Temp Pulse Resp B/P (MAP) Pulse Ox O2 Delivery O2 Flow Rate FiO2 07/20/24 15:00 94 16 154/79 (104) 90 07/20/24 10:57 Nasal Cannula 6.0 07/20/24 10:57 44 07/20/24 10:00 98.8 98.8 Total Intake and Output 07/19/24 07/19/24 07/20/24 15:00 23:00 07:00 Intake Total 400 ml 960 ml 540.0 ml Output Total 0 ml 2000 ml Balance 400 ml 960 ml -1460.0 ml medications Current Medications Medications Dose Ordered Sig/Christian Route Start Time Stop Time Status Last Admin Dose Admin Furosemide 80 mg DAILY IV 07/20/24 10:00 07/20/24 10:40 80 MG Tramadol HCl 50 mg Q12HP PRN PO 07/19/24 02:45 Diagnostic Test (Pha) 1 strip IQ4HR 07/19/24 12:00 07/20/24 16:14 1 STRIP Insulin Human Regular IQ4HR SC 07/19/24 12:00 07/20/24 16:18 2 UNITS Dextrose 50 ml UD PRN IV 07/19/24 10:15 Pantoprazole Sodium 40 mg BID IV 07/19/24 22:00 07/20/24 10:38 40 MG Doxycycline Hyclate 250 ml @ 125 mls/hr Q12H IV 07/19/24 10:45 07/20/24 14:17 125 MLS/HR Piperacillin Sod/ Tazobactam Sod 100 ml @ 25 mls/hr Q12HR IV 07/19/24 22:00 UNV Piperacillin Sod/ Tazobactam Sod 50 ml @ 12.5 mls/hr Q12HR IV 07/19/24 22:00 07/20/24 10:39 12.5 MLS/HR Albumin Human 100 ml @ 100 mls/hr ONCE PRN IV 07/19/24 17:30 07/19/24 21:43 100 MLS/HR Ipratropium [place] 0.5 mg Q6HPRN PRN NEB 07/19/24 19:45 07/20/24 10:57 0.5 MG Albuterol 2.5 mg Q6HPRN PRN NEB 07/19/24 19:45 07/20/24 10:57 2.5 MG Lactulose 30 ml BID PO 07/20/24 22:00 Hydralazine HCl 10 mg Q6HR PRN PO 07/20/24 14:00 07/20/24 14:51 10 MG Carvedilol 12.5 mg Q12HR PO 07/20/24 22:00 UNV Metoprolol Succinate 50 mg DAILY PO 07/21/24 10:00 UNV Amlodipine Besylate 10 mg DAILY PO 07/21/24 10:00 UNV Examination General Appearance: Alert, Oriented X3, Cooperative, but lethargic HEENT: Atraumatic, PERRLA, EOMI, Mucous membrane moist/pink Respiratory: Clear to auscultation, Normal air movement Cardiovascular: Regular rate, Normal S1, Normal S2, No murmurs, no chest wall tenderness Abdominal: Abdomen is distended, with positive shifting dullness Extremities: No clubbing, No cyanosis, No edema, Normal pulses, No tenderness/swelling Skin: No rashes, No breakdown, No significant lesion Neuro: Normal gait, Normal speech, Strength at 5/5 X4 ext, Normal tone, Sensation intact, Cranial nerves 3-12 NL, Reflexes 2+ Psych/Mental Status: Mental status NL, Mood NL laboratory and microbiology Laboratory Tests 07/20/24 06:00 Test 07/20/24 06:00 Range/Units Serum Glucose 91 74-106 mg/dL Microbiology Date/Time Source Procedure Growth Status 07/19/24 04:00 Nose MRSA Screen - Final Complete 07/19/24 03:29 Sputum Gram Stain - Final Resulted 07/19/24 03:29 Sputum Respiratory Culture - Preliminary Resulted 07/19/24 03:00 Ascities Fluid Gram Stain - Final Resulted 07/19/24 03:00 Ascities Fluid Body Fluid Culture - Preliminary Resulted 07/18/24 23:30 Blood Blood Culture - Preliminary NO GROWTH AFTER 24 HOURS OF INCUBATION. Resulted Labs and/or images reviewed: Labs reviewed by me, Image(s) reviewed by me Problem List/Assessment/Plan Problem List/Assessment/Plan Acute hypoxic respiratory failure, likely due to massive ascites/pneumonia /aspiration pneumonia Sepsis, likely due to pneumonia Pneumonia, likely due to Gram-positive Gram-negative bacteria/viral Chest x-ray shows bilateral lower zone infiltration Abdominal CT scan, showed [id number] bilateral lower lobe consolidation with air bronchogram, likely due to atelectasis/pneumonia/aspiration Sputum/blood/urine culture Influenza type a and B, and COVID-19 are negative MRSA screening Injection Zosyn and doxycycline Breathing treatment q.6 hours as needed Massive ascites, status post paracentesis, taken out similar to Hepatic encephalopathy, today worsened Liver cirrhosis, likely due to alcoholic/Hepatitis Ruled out spontaneous bacterial pneumonitis, ascitic fluid WBCs are 90 ammonia is today raised at 45 Furosemide 80 mg daily Spironolactone 50 mg daily Hypoglycemia D5W at 40 mL/hour Alcohol use disorder, patient is counseled for alcohol cessation for more than 21 minutes Hypotension, improved stopped midodrine Hypertension Resume home medicine including carvedilol and amlodipine UTI ESRD on maintenance hemodialysis Hyperkalemia, hyperkalemia protocol given Nephrology is on the board, HD performed yesterday and take out 2 L Thrombocytopenia, likely due to liver cirrhosis Improving Mild protein malnutrition Serum albumin is 3.1 Next Severe anemia, microcytic hypochromic Today Hb at 7.9 Iron panel, shows iron-deficiency anemia Fecal occult blood test negative DIET: Renal diet DVT PROPHYLAXIS: Because of CVA, no anticoagulant is indicated GI PROPHYLAXIS:: Protonix b.i.d. BOWEL REGIMEN: Lactulose 30 mL b.i.d. CODE STATUS: Goal of care discussed for more than 25 minutes, full code DISPOSITION: Do you status Active smoker: Patient was counseled for risk of smoking and smoking cessation for more than 27 minutes. Patient's status discussed with the patient. Case discussed with Dr. Jauregui Plan discussed with: Patient, Other (RN) My Orders My Orders Orders - MAURICE VILLEGAS RESDINEFTALI Procedure Category Date Status Time Ipratropium Medneb PHA 07/19/24 In Process (Atrovent Medneb) 19:45 Albuterol Medneb PHA 07/19/24 In Process (Ventolin Medneb) 19:45 Lactulose Oral PHA 07/20/24 In Process 22:00 Hydralazine Hcl PHA 07/20/24 In Process Tablet (Apresoline 14:00 Mechanical Soft Diet DIET 07/20/24 Transmitted Dinner Transfer Orders XFER 07/20/24 Transmitted 15:17 Carvedilol Tablet PHA 07/20/24 Logged (Coreg Tablet) 22:00 Metoprolol Xl PHA 07/21/24 Logged Succinate (Toprol Xl) 10:00 Amlodipine Tablet PHA 07/20/24 Logged (Norvasc Tablet) 16:15 Amlodipine Tablet PHA 07/21/24 Logged (Norvasc Tablet) 10:00 CC Plasma Assessment Blood Product Administration S: [id number] MAURICE VILLEGAS RESDIENT Jul 20, 2024 16:32
[2024-07-20] MEDS: amLODIPine BESYLATE 5 MG TAB PO ONE (16:44)
[2024-07-20 17:09] LABS: Base Excess -0.9 mmol/L (-2.0-3.0)
[2024-07-20] MEDS: IPRATROPIUM BROM 0.5 MG/2.5ML INH SOL NEB SCH (17:46)
[2024-07-20] MEDS: ALBUTEROL SULF 2.5 MG/0.5ML(0.5%) NEB SOLN NEB SCH (17:47)
[2024-07-20] MEDS ORDERED: hydrALAZINE HCL 10 MG TAB PO SCH (18:00)
--- NOTE | 2024-07-20 19:59 | DVHPN2 ---
Progress Note - Dictate Date Seen: Jul 20, 2024 Has the PT tested + for MRSA If YES, has PT been informed?: Yes Medical Necessity Reason Pt with a Central, PICC or Fol: No Subjective patient seen earlier today in ER denies shortness of breath vital signs Vital Sign Date Time Temp Pulse Resp B/P (MAP) Pulse Ox O2 Delivery O2 Flow Rate FiO2 07/20/24 19:00 88 16 160/54 (89) 92 07/20/24 17:47 Facial BiPAP Mask 45 07/20/24 17:01 6.0 07/20/24 10:00 98.8 98.8 Total Intake and Output 07/19/24 07/19/24 07/20/24 14:59 22:59 06:59 Intake Total 400 ml 920 ml 580.0 ml Output Total 0 ml 2000 ml Balance 400 ml 920 ml -1420.0 ml medications Current Medications Medications Dose Ordered Sig/Christian Route Start Time Stop Time Status Last Admin Dose Admin Furosemide 80 mg DAILY IV 07/20/24 10:00 07/20/24 10:40 80 MG Tramadol HCl 50 mg Q12HP PRN PO 07/19/24 02:45 Diagnostic Test (Pha) 1 strip IQ4HR 07/19/24 12:00 07/20/24 16:14 1 STRIP Insulin Human Regular IQ4HR SC 07/19/24 12:00 07/20/24 16:18 2 UNITS Dextrose 50 ml UD PRN IV 07/19/24 10:15 Pantoprazole Sodium 40 mg BID IV 07/19/24 22:00 07/20/24 10:38 40 MG Doxycycline Hyclate 250 ml @ 125 mls/hr Q12H IV 07/19/24 10:45 07/20/24 14:17 125 MLS/HR Piperacillin Sod/ Tazobactam Sod 100 ml @ 25 mls/hr Q12HR IV 07/19/24 22:00 UNV Piperacillin Sod/ Tazobactam Sod 50 ml @ 12.5 mls/hr Q12HR IV 07/19/24 22:00 07/20/24 10:39 12.5 MLS/HR Albumin Human 100 ml @ 100 mls/hr ONCE PRN IV 07/19/24 17:30 07/19/24 21:43 100 MLS/HR Ipratropium [place] 0.5 mg Q6HPRN PRN NEB 07/19/24 19:45 07/20/24 17:01 0.5 MG Albuterol 2.5 mg Q6HPRN PRN NEB 07/19/24 19:45 07/20/24 17:01 2.5 MG Lactulose 30 ml BID PO 07/20/24 22:00 Hydralazine HCl 10 mg Q6HR PRN PO 07/20/24 14:00 07/20/24 14:51 10 MG Carvedilol 12.5 mg Q12HR PO 07/20/24 22:00 Amlodipine Besylate 10 mg DAILY PO 07/21/24 10:00 Albuterol 2.5 mg Q4HR NEB 07/20/24 18:00 07/20/24 17:47 2.5 MG Ipratropium [place] 0.5 mg Q4HR NEB 07/20/24 18:00 07/20/24 17:46 0.5 MG objective gen: nad lungs: cta cvs: no rub exT: trace edema laboratory and microbiology Laboratory Tests 07/20/24 06:00 Test 07/20/24 06:00 Range/Units Serum Glucose 91 74-106 mg/dL Assessment/Plan End-stage renal disease on hemodialysis Decompensated liver cirrhosis with ascites Hyperkalemia iatrogenic Chronic diastolic heart failure Diabetes mellitus type 2 Hypoglycemia Hypotension Precipitous drop in hemoglobin Rule out GI bleed Recommendations Daily evaluation for INSPECTOR [employer] DISPOSITION next HD tentatively 07/21 Plan discussed with: Other CC Plasma Assessment Blood Product Administration S: [id number] ALVINA ROMEO MD Jul 20, 2024 19:59
[2024-07-20] MEDS: ACETAMINOPHEN 325 MG TAB PO ONE (20:14)
[2024-07-20 21:00] LABS: Base Excess 0.6 mmol/L (-2.0-3.0)
[2024-07-20] MEDS: traMADol HCL 50 MG TAB PO PRN (21:19)
[2024-07-20] MEDS: LACTULOSE 20Gm/30ML SOLN PO SCH (22:00)
[2024-07-20] MEDS: CARVEDILOL 12.5 MG TAB PO SCH (23:27)
[2024-07-21] VITALS (14 sets, daily range): BP systolic 109–134; BP diastolic 58–74; PULSE 63–86; RESP 12–25; O2SAT 94–100
[2024-07-21] MEDS: DOXYCYCLINE 100MG/250ML 250 ML IV SCH (03:24)
[2024-07-21] MEDS: MIDODRINE HCL 10 MG TAB PO ONE (04:03)
[2024-07-21 05:04] LABS: Hemoglobin 7.8 g/dL (13.5-17.5); Monocytes # (auto) 0.5 10 ^3/uL (0-1.3); Nucleated Red Blood Cells % 0.7 %
[2024-07-21 05:07] LABS: Alanine Aminotransferase 20 U/L (7-40); Albumin 2.9 g/dL (3.2-4.8); Alkaline Phosphatase 58 U/L (46-116); Anion Gap 5 (5-15); BUN/Creatinine Ratio 7.6 (10.0-20.0); Blood Urea Nitrogen 39 mg/dL (9-23); Calcium 8.2 mg/dL (8.7-10.4); Carbon Dioxide 25 mmol/L (20-31); Chloride 101 mmol/L (98-107); Glucose 142 mg/dL (74-106); Potassium 4.6 mmol/L (3.5-5.1); Sodium 131 mmol/L (136-145)
[2024-07-21 05:08] LABS: Bilirubin, Total 0.2 mg/dL (0.2-1.0); Total Protein 5.3 g/dL (5.7-8.2)
[2024-07-21 05:09] LABS: Basophils # (auto) 0.1 10 ^3/uL (0-0.2); Basophils % (auto) 1.6 % (0.0-2.0); Eosinophils # (auto) 0.1 10 ^3/uL (0-0.8); Eosinophils % (auto) 1.2 % (0.0-7.0); Hematocrit 25.1 % (41.0-53.0); Lymphocytes # (auto) 0.4 10 ^3/uL (0.4-5.4); Lymphocytes % (auto) 8.5 % (10.0-50.0); Mean Corpuscular Hemoglobin 23.9 pg (28.0-32.0); Mean Corpuscular Hgb Conc. 31.1 g/dL (32.0-36.0); Mean Corpuscular Volume 76.9 fL (80.0-100.0); Monocytes % (auto) 11.8 % (0.0-12.0); Neutrophils # (auto) 3.2 10 ^3/uL (1.6-8.6); Neutrophils % (auto) 76.9 % (37.0-80.0); Platelet Count (auto) 129 10^3/uL (140-450); Red Blood Cells 3.26 10^6/uL (4.5-5.90); White Blood Cell 4.2 10^3/uL (4.4-10.8)
[2024-07-21 05:21] LABS: Red Cell Distribution Width 27.2 % (11.8-14.3)
[2024-07-21 06:17] LABS: Aspartate Aminotransferase 63 U/L (13-40)
[2024-07-21 09:41] LABS: Anisocytosis Moderate
[2024-07-21 09:42] LABS: Hypochromia Slight
[2024-07-21 09:43] LABS: Ovalocytes MODE; Platelet Estimate Decreased
[2024-07-21] MEDS ORDERED: METOPROLOL SUCCINATE XL 50 MG TAB PO SCH (10:00)
[2024-07-21] MEDS: amLODIPine BESYLATE 5 MG TAB PO SCH (11:53)
--- NOTE | 2024-07-21 14:00 | DVHPNRES ---
Progress Note Date Seen: Jul 21, 2024 Resident Creating Document: CARLY TRAORE RESIDENT Has the PT tested + for MRSA If YES, has PT been informed?: Yes Medical Necessity Reason Pt with a Central, PICC or Fol: No Subjective Review of Systems Alert, Oriented X3, Cooperative, but lethargic, Abdomen is distended, with positive shifting dullness, overnight patient was afebrile, heart rate and blood pressure well-maintained but hypercapnia persistent and patient needed BiPAP, with BiPAP patient is more alert awake. Influenza and COVID negative, serum alcohol positive, UDS negative, typical 2 to 1 alcoholic liver pattern, worsening renal function elevated BUN of 39 with creatinine 5.1 nephrology on board. Echo acceptable, hemoglobin remained stable for on the lower side 7.8, microcytic anemia, low platelets but maintaining, so far MRSA negative, respiratory culture normal oral bridget, ascitic fluid unremarkable, blood culture negative, CXR shows pulmonary edema, patient on Lasix IV 80. Lactulose 30 p.o. b.i.d. Objective vital signs Vital Sign Date Time Temp Pulse Resp B/P (MAP) Pulse Ox O2 Delivery O2 Flow Rate FiO2 07/21/24 12:54 72 120/57 07/21/24 12:00 15 98 07/21/24 10:55 Facial BiPAP Mask 40 07/21/24 08:00 98.2 98.2 07/21/24 08:00 0 Total Intake and Output 07/20/24 07/20/24 07/21/24 15:00 23:00 07:00 Intake Total 37.5 ml 262.5 ml 300.3 ml Balance 37.5 ml 262.5 ml 300.3 ml medications Current Medications Medications Dose Ordered Sig/Christian Route Start Time Stop Time Status Last Admin Dose Admin Furosemide 80 mg DAILY IV 07/20/24 10:00 07/21/24 11:53 80 MG Tramadol HCl 50 mg Q12HP PRN PO 07/19/24 02:45 07/20/24 21:19 50 MG Diagnostic Test (Pha) 1 strip IQ4HR 07/19/24 12:00 07/21/24 12:02 1 STRIP Insulin Human Regular IQ4HR SC 07/19/24 12:00 07/21/24 04:12 2 UNITS Dextrose 50 ml UD PRN IV 07/19/24 10:15 Pantoprazole Sodium 40 mg BID IV 07/19/24 22:00 07/21/24 11:52 40 MG Piperacillin Sod/ Tazobactam Sod 100 ml @ 25 mls/hr Q12HR IV 07/19/24 22:00 UNV Piperacillin Sod/ Tazobactam Sod 50 ml @ 12.5 mls/hr Q12HR IV 07/19/24 22:00 07/21/24 11:54 12.5 MLS/HR Albumin Human 100 ml @ 100 mls/hr ONCE PRN IV 07/19/24 17:30 07/19/24 21:43 100 MLS/HR Ipratropium [place] 0.5 mg Q6HPRN PRN NEB 07/19/24 19:45 07/20/24 17:01 0.5 MG Albuterol 2.5 mg Q6HPRN PRN NEB 07/19/24 19:45 07/20/24 17:01 2.5 MG Lactulose 30 ml BID PO 07/20/24 22:00 07/21/24 11:45 30 ML Hydralazine HCl 10 mg Q6HR PRN PO 07/20/24 14:00 07/20/24 21:19 10 MG Carvedilol 12.5 mg Q12HR PO 07/20/24 22:00 07/21/24 11:54 12.5 MG Amlodipine Besylate 10 mg DAILY PO 07/21/24 10:00 07/21/24 11:53 10 MG Albuterol 2.5 mg Q4HR NEB 07/20/24 18:00 07/21/24 10:55 2.5 MG Ipratropium [place] 0.5 mg Q4HR NEB 07/20/24 18:00 07/21/24 10:55 0.5 MG Doxycycline Hyclate 250 ml @ 125 mls/hr Q12H IV 07/21/24 03:00 07/21/24 03:24 125 MLS/HR Examination General Appearance: Alert, Oriented X3, Cooperative, but lethargic HEENT: Atraumatic, PERRLA, EOMI, Mucous membrane moist/pink Respiratory: Clear to auscultation, Normal air movement Cardiovascular: Regular rate, Normal S1, Normal S2, No murmurs, no chest wall tenderness Abdominal: Abdomen is distended, with positive shifting dullness Extremities: No clubbing, No cyanosis, No edema, Normal pulses, No tenderness/swelling Skin: No rashes, No breakdown, No significant lesion Neuro: Normal gait, Normal speech, Strength at 5/5 X4 ext, Normal tone, Sensation intact, Cranial nerves 3-12 NL, Reflexes 2+ Psych/Mental Status: Mental status NL, Mood NL laboratory and microbiology Laboratory Tests 07/21/24 04:27 Test 07/21/24 04:27 Range/Units Serum Glucose 142 H 74-106 mg/dL Microbiology Date/Time Source Procedure Growth Status 07/19/24 04:00 Nose MRSA Screen - Final Complete 07/19/24 03:29 Sputum Gram Stain - Final Complete 07/19/24 03:29 Sputum Respiratory Culture - Final Complete 07/19/24 03:00 Ascities Fluid Gram Stain - Final Resulted 07/19/24 03:00 Ascities Fluid Body Fluid Culture - Preliminary Resulted 07/18/24 23:30 Blood Blood Culture - Preliminary NO GROWTH AFTER 48 HOURS OF INCUBATION. Resulted Labs and/or images reviewed: Labs reviewed by me, Image(s) reviewed by me Problem List/Assessment/Plan Problem List/Assessment/Plan Hospitalization summary/ Assessment: This is a 58-year-old male with a history of liver cirrhosis, kidney failure on dialysis, type 2 diabetes mellitus, and suspected heart failure, who presented with worsening shortness of breath and abdominal swelling. Two weeks ago, he had 8-9 L of ascitic fluid removed via paracentesis. He was admitted to a week ago for abdominal swelling but did not undergo paracentesis. Recently, he experienced flu-like symptoms, including cough with expectoration, chills, and worsening shortness of breath. He lives with his caregiver, smokes about 3 cigarettes per day, and has a history of methamphetamine and IV drug use. Plan: # Acute hypoxic and hypercapnic respiratory failure, likely due to massive ascites/pneumonia /aspiration pneumonia: BiPAP to continue. Aspiration precautions # Sepsis, likely due to pneumonia: Covering with Zosyn and doxycycline # Pneumonia, likely due to Gram-positive Gram-negative bacteria/viral Respiratory cultures negative, MRSA negative # Massive ascites, status post paracentesis, appropriate IV albumin # Hepatic encephalopathy, mildly improved patient on lactulose, titrate to keep 2-3 stool output daily # metabolic /toxic encephalopathy, improving likely due to CO2 retention, uremia, anemia liver cirrhosis # liver cirrhosis: At home furosemide 80 daily, if blood pressure remains stable we will add spironolactone 50 mg daily # known history of diabetes mellitus # ESRD on hemodialysis: Dr. Syed follows next dialysis tomorrow 07/22/2024. # Decompensated liver cirrhosis with ascites Status post recurrent paracentesis # to rule out GI bleed: IV ppi, FOBT pending follow H&H # hypotension: Likely due to sepsis status post midodrine, blood pressure improved after antibiotics. Close monitor # diabetes mellitus type 2: Patient was on sliding scale insulin at home. # recurrent hypoglycemic attacks: Likely due to renal failure , poor p.o. input on continued insulin. Goal BG 140-180 in-hospital # UTI: continue antibiotics, follow cultures, so far all cultures negative. # Hyperkalemia likely due to ESRD: Hyperkalemia treatment given improved, follow up potassium # mild protein malnutrition: Dietary consult, continue protein intake added ensure t.i.d.. # Severe anemia microcytic hypochromic hemoglobin 7.9, iron panel, occult blood test to follow, target hemoglobin above 7, transfuse as needed # primarily respiratory acidosis, likely with secondary metabolic acidosis # thrombocytopenia likely due to liver cirrhosis, monitor closely # Active smoker: daily 3 cigarettes a day Patient was counseled for risk of smoking and smoking cessation for more than 27 minutes. # SBO ruled out Diet: renal diet GI prophylaxis: protonix 40mg b.i.d. DVT prophylaxis: held due to bleeding, SCD Bowel regimen: 30 mL b.i.d. Barriers to discharge: Medical diagnosis and managment in progress. pending, contact: TREE [phone] PCP: Rosalinda Mayers Specialist Relevent To Admission: GI Dr. Banegas Patient care and plan discussed with Dr. Jauregui Disposition: Patient remains in TELE Plan discussed with: Patient, Other (Primary team, RN) My Orders My Orders Orders - CARLY TRAORE Procedure Category Date Status Time Lactic Acid W/ Reflex LAB 07/21/24 Logged Order 13:41 Stool Occult Blood LAB 07/21/24 Logged 13:49 CC Plasma Assessment Blood Product Administration S: [id number] CARLY TRAORE Jul 21, 2024 14:00
[2024-07-21] MEDS: Ensure HIGH Protein Chocolate 8oz Bottle PO SCH (18:00)
--- NOTE | 2024-07-21 20:13 | DVHPN2 ---
Progress Note - Dictate Date Seen: Jul 21, 2024 Has the PT tested + for MRSA If YES, has PT been informed?: Yes Medical Necessity Reason Pt with a Central, PICC or Fol: No Subjective remains on BiPAP, communicative vital signs Vital Sign Date Time Temp Pulse Resp B/P (MAP) Pulse Ox O2 Delivery O2 Flow Rate FiO2 07/21/24 19:30 98.3 76 20 145/78 (100) 98 98.3 07/21/24 15:58 Facial BiPAP Mask 40 07/21/24 08:00 0 Total Intake and Output 07/20/24 07/20/24 07/21/24 15:00 23:00 07:00 Intake Total 37.5 ml 262.5 ml 300.3 ml Balance 37.5 ml 262.5 ml 300.3 ml medications Current Medications Medications Dose Ordered Sig/Christian Route Start Time Stop Time Status Last Admin Dose Admin Furosemide 80 mg DAILY IV 07/20/24 10:00 07/21/24 11:53 80 MG Tramadol HCl 50 mg Q12HP PRN PO 07/19/24 02:45 07/21/24 14:17 50 MG Diagnostic Test (Pha) 1 strip IQ4HR 07/19/24 12:00 07/21/24 16:20 1 STRIP Dextrose 50 ml UD PRN IV 07/19/24 10:15 Pantoprazole Sodium 40 mg BID IV 07/19/24 22:00 07/21/24 11:52 40 MG Piperacillin Sod/ Tazobactam Sod 100 ml @ 25 mls/hr Q12HR IV 07/19/24 22:00 UNV Piperacillin Sod/ Tazobactam Sod 50 ml @ 12.5 mls/hr Q12HR IV 07/19/24 22:00 07/21/24 11:54 12.5 MLS/HR Albumin Human 100 ml @ 100 mls/hr ONCE PRN IV 07/19/24 17:30 07/19/24 21:43 100 MLS/HR Ipratropium [place] 0.5 mg Q6HPRN PRN NEB 07/19/24 19:45 07/20/24 17:01 0.5 MG Albuterol 2.5 mg Q6HPRN PRN NEB 07/19/24 19:45 07/20/24 17:01 2.5 MG Lactulose 30 ml BID PO 07/20/24 22:00 07/21/24 11:45 30 ML Hydralazine HCl 10 mg Q6HR PRN PO 07/20/24 14:00 07/20/24 21:19 10 MG Carvedilol 12.5 mg Q12HR PO 07/20/24 22:00 07/21/24 11:54 12.5 MG Amlodipine Besylate 10 mg DAILY PO 07/21/24 10:00 07/21/24 11:53 10 MG Albuterol 2.5 mg Q4HR NEB 07/20/24 18:00 07/21/24 19:19 2.5 MG Ipratropium [place] 0.5 mg Q4HR NEB 07/20/24 18:00 07/21/24 19:19 0.5 MG Doxycycline Hyclate 250 ml @ 125 mls/hr Q12H IV 07/21/24 03:00 07/21/24 15:17 125 MLS/HR Enteral Nutritional Formula 240 ml TIDWM PO 07/21/24 18:00 07/21/24 18:00 240 ML objective gen: nad lungs: cta cvs: no rub exT: trace edema laboratory and microbiology Laboratory Tests 07/21/24 04:27 Test 07/21/24 04:27 Range/Units Serum Glucose 142 H 74-106 mg/dL Assessment/Plan End-stage renal disease on hemodialysis Decompensated liver cirrhosis with ascites Hyperkalemia iatrogenic Chronic diastolic heart failure Diabetes mellitus type 2 Hypoglycemia Hypotension Precipitous drop in hemoglobin Rule out GI bleed Recommendations dialysis July 22 [address] Mr[address] Munroe Plan discussed with: Patient CC Plasma Assessment Blood Product Administration S: [id number] ALVINA ROMEO MD Jul 21, 2024 20:13
[2024-07-21 20:46] LABS: Base Excess -3.4 mmol/L (-2.0-3.0)
[2024-07-22] VITALS (20 sets, daily range): BP systolic 118–124; BP diastolic 63–71; PULSE 69–87; RESP 11–24; TEMP 97.5–97.6; O2SAT 91–100
[2024-07-22 09:28] LABS: Basophils # (auto) 0 10 ^3/uL (0-0.2); Eosinophils # (auto) 0.1 10 ^3/uL (0-0.8); Hemoglobin 7.9 g/dL (13.5-17.5); Lymphocytes # (auto) 0.3 10 ^3/uL (0.4-5.4); Mean Corpuscular Hgb Conc. 30.9 g/dL (32.0-36.0); Monocytes # (auto) 0.4 10 ^3/uL (0-1.3); Red Cell Distribution Width 27.1 % (11.8-14.3)
[2024-07-22 09:33] LABS: Basophils % (auto) 0.6 % (0.0-2.0); Eosinophils % (auto) 2.8 % (0.0-7.0); Hematocrit 25.4 % (41.0-53.0); Lymphocytes % (auto) 8.5 % (10.0-50.0); Mean Corpuscular Hemoglobin 23.6 pg (28.0-32.0); Mean Corpuscular Volume 76.3 fL (80.0-100.0); Monocytes % (auto) 11.9 % (0.0-12.0); Neutrophils # (auto) 2.7 10 ^3/uL (1.6-8.6); Neutrophils % (auto) 76.2 % (37.0-80.0); Nucleated Red Blood Cells % 0.5 %; Platelet Count (auto) 163 10^3/uL (140-450); Red Blood Cells 3.34 10^6/uL (4.5-5.90); White Blood Cell 3.6 10^3/uL (4.4-10.8)
[2024-07-22 10:01] LABS: Anisocytosis Moderate; Hypochromia Moderate; Ovalocytes MODERATE; Platelet Estimate Adequate
[2024-07-22] MEDS ORDERED: SODIUM CHL 0.9% 1000 ML BAG XX ONE ×2 (13:30→16:30)
[2024-07-22] MEDS: methylPREDNISolone SOD SUCC 40 MG/ML VL IV ONE (15:15)
--- NOTE | 2024-07-22 16:24 | DVHPN2 ---
Progress Note - Dictate Date Seen: Jul 22, 2024 Has the PT tested + for MRSA If YES, has PT been informed?: Yes Medical Necessity Reason Pt with a Central, PICC or Fol: No Subjective Off BiPAP, states he feels better vital signs Vital Sign Date Time Temp Pulse Resp B/P (MAP) Pulse Ox O2 Delivery O2 Flow Rate FiO2 07/22/24 16:14 71 18 122/63 100 3.0 32 07/22/24 14:27 Nasal Cannula 07/22/24 08:00 98.5 98.5 Total Intake and Output 07/21/24 07/21/24 07/22/24 15:00 23:00 07:00 Intake Total 50 ml 250 ml 300 ml Output Total 100 ml Balance -50 ml 250 ml 300 ml medications Current Medications Medications Dose Ordered Sig/Christian Route Start Time Stop Time Status Last Admin Dose Admin Furosemide 80 mg DAILY IV 07/20/24 10:00 07/22/24 10:42 80 MG Tramadol HCl 50 mg Q12HP PRN PO 07/19/24 02:45 07/21/24 14:17 50 MG Diagnostic Test (Pha) 1 strip IQ4HR 07/19/24 12:00 07/22/24 12:47 1 STRIP Dextrose 50 ml UD PRN IV 07/19/24 10:15 Pantoprazole Sodium 40 mg BID IV 07/19/24 22:00 07/22/24 10:41 40 MG Piperacillin Sod/ Tazobactam Sod 100 ml @ 25 mls/hr Q12HR IV 07/19/24 22:00 UNV Piperacillin Sod/ Tazobactam Sod 50 ml @ 12.5 mls/hr Q12HR IV 07/19/24 22:00 07/22/24 10:42 12.5 MLS/HR Albumin Human 100 ml @ 100 mls/hr ONCE PRN IV 07/19/24 17:30 07/19/24 21:43 100 MLS/HR Ipratropium [place] 0.5 mg Q6HPRN PRN NEB 07/19/24 19:45 07/20/24 17:01 0.5 MG Albuterol 2.5 mg Q6HPRN PRN NEB 07/19/24 19:45 07/20/24 17:01 2.5 MG Lactulose 30 ml BID PO 07/20/24 22:00 07/22/24 10:42 30 ML Hydralazine HCl 10 mg Q6HR PRN PO 07/20/24 14:00 07/20/24 21:19 10 MG Carvedilol 12.5 mg Q12HR PO 07/20/24 22:00 07/22/24 10:00 12.5 MG Amlodipine Besylate 10 mg DAILY PO 07/21/24 10:00 07/22/24 10:43 10 MG Albuterol 2.5 mg Q4HR NEB 07/20/24 18:00 07/22/24 14:27 2.5 MG Ipratropium [place] 0.5 mg Q4HR NEB 07/20/24 18:00 07/22/24 14:27 0.5 MG Doxycycline Hyclate 250 ml @ 125 mls/hr Q12H IV 07/21/24 03:00 07/22/24 15:16 125 MLS/HR Enteral Nutritional Formula 240 ml TIDWM PO 07/21/24 18:00 07/22/24 12:00 240 ML Prednisone 40 mg DAILY PO 07/23/24 10:00 objective gen: nad lungs: cta cvs: no rub exT: trace edema laboratory and microbiology Laboratory Tests 07/22/24 09:13 07/22/24 05:40 Test 07/22/24 05:40 Range/Units Serum Glucose 74-106 mg/dL Assessment/Plan End-stage renal disease on hemodialysis Decompensated liver cirrhosis with ascites Hyperkalemia iatrogenic Chronic diastolic heart failure Diabetes mellitus type 2 Hypoglycemia Hypotension Precipitous drop in hemoglobin Rule out GI bleed Recommendations dialysis today, ultrafiltration as tolerated Discussed with Mr. Munroe Plan discussed with: Patient, Other CC Plasma Assessment Blood Product Administration S: [id number] ALVINA ROMEO MD Jul 22, 2024 16:24
--- NOTE | 2024-07-22 17:34 | DVHPNRES ---
Progress Note Date Seen: Jul 22, 2024 Resident Creating Document: MAURICE VILLEGAS KESHAWN Has the PT tested + for MRSA If YES, has PT been informed?: Yes Medical Necessity Reason Pt with a Central, PICC or Fol: No Subjective Review of Systems Patient is a 58-year-old male with a known past medical history of liver cirrhosis, kidney failure on dialysis, type 2 diabetes mellitus, suspected heart failure came to the ED with a chief complaint of worsening shortness of breath and abdominal swelling. Patient reports that about 2 weeks ago he got his last paracentesis when the 8-9 L of ascitic fluid was removed. About a week ago he again was admitted to the [facility] for worsening abdominal swelling but a paracentesis was not done. In the last week he also had flu-like symptoms of cough with expectoration, chills and worsening shortness of breath. Patient was brought to the ED for further evaluation. Past medical history: Liver cirrhosis( hep C antibody positive as per records) , kidney failure on dialysis, type 2 diabetes mellitus, ? Diastolic heart failure Past surgical history: None Social history: Lives with his caregiver.Currently smokes about 3 cigarettes per day, denies current drug usage or alcohol consumption. Patient has previous history of methamphetamine use and IV drug use. Home medication: Amlodipine 10 mg q.d., furosemide 40 mg b.i.d., gabapentin 400 mg t.i.d., insulin 20U, lactulose, metoprolol succinate 50 mg q.d., spironolactone 50 mg q.d., tramadol for pain Patient seen and examined at the bedside with the patient is feeling better since admission. Patient reports: No new complaints, Feels better Changes from previous H/P or p: Changes Objective vital signs Vital Sign Date Time Temp Pulse Resp B/P (MAP) Pulse Ox O2 Delivery O2 Flow Rate FiO2 07/22/24 16:14 71 18 122/63 100 3.0 32 07/22/24 14:27 Nasal Cannula 07/22/24 08:00 98.5 98.5 Total Intake and Output 07/21/24 07/21/24 07/22/24 15:00 23:00 07:00 Intake Total 50 ml 250 ml 300 ml Output Total 100 ml Balance -50 ml 250 ml 300 ml medications Current Medications Medications Dose Ordered Sig/Christian Route Start Time Stop Time Status Last Admin Dose Admin Furosemide 80 mg DAILY IV 07/20/24 10:00 07/22/24 10:42 80 MG Tramadol HCl 50 mg Q12HP PRN PO 07/19/24 02:45 07/21/24 14:17 50 MG Diagnostic Test (Pha) 1 strip IQ4HR 07/19/24 12:00 07/22/24 12:47 1 STRIP Dextrose 50 ml UD PRN IV 07/19/24 10:15 Pantoprazole Sodium 40 mg BID IV 07/19/24 22:00 07/22/24 10:41 40 MG Piperacillin Sod/ Tazobactam Sod 100 ml @ 25 mls/hr Q12HR IV 07/19/24 22:00 UNV Piperacillin Sod/ Tazobactam Sod 50 ml @ 12.5 mls/hr Q12HR IV 07/19/24 22:00 07/22/24 10:42 12.5 MLS/HR Albumin Human 100 ml @ 100 mls/hr ONCE PRN IV 07/19/24 17:30 07/19/24 21:43 100 MLS/HR Ipratropium [place] 0.5 mg Q6HPRN PRN NEB 07/19/24 19:45 07/20/24 17:01 0.5 MG Albuterol 2.5 mg Q6HPRN PRN NEB 07/19/24 19:45 07/20/24 17:01 2.5 MG Lactulose 30 ml BID PO 07/20/24 22:00 07/22/24 10:42 30 ML Hydralazine HCl 10 mg Q6HR PRN PO 07/20/24 14:00 07/20/24 21:19 10 MG Carvedilol 12.5 mg Q12HR PO 07/20/24 22:00 07/22/24 10:00 12.5 MG Amlodipine Besylate 10 mg DAILY PO 07/21/24 10:00 07/22/24 10:43 10 MG Albuterol 2.5 mg Q4HR NEB 07/20/24 18:00 07/22/24 14:27 2.5 MG Ipratropium [place] 0.5 mg Q4HR NEB 07/20/24 18:00 07/22/24 14:27 0.5 MG Doxycycline Hyclate 250 ml @ 125 mls/hr Q12H IV 07/21/24 03:00 07/22/24 15:16 125 MLS/HR Enteral Nutritional Formula 240 ml TIDWM PO 07/21/24 18:00 07/22/24 12:00 240 ML Prednisone 40 mg DAILY PO 07/23/24 10:00 Examination General Appearance: Alert, Oriented X3, Cooperative, but lethargic HEENT: Atraumatic, PERRLA, EOMI, Mucous membrane moist/pink Respiratory: Clear to auscultation, Normal air movement Cardiovascular: Regular rate, Normal S1, Normal S2, No murmurs, no chest wall tenderness Abdominal: Abdomen is distended, with positive shifting dullness Extremities: No clubbing, No cyanosis, No edema, Normal pulses, No tenderness/swelling Skin: No rashes, No breakdown, No significant lesion Neuro: Normal gait, Normal speech, Strength at 5/5 X4 ext, Normal tone, Sensation intact, Cranial nerves 3-12 NL, Reflexes 2+ Psych/Mental Status: Mental status NL, Mood NL laboratory and microbiology Laboratory Tests 07/22/24 09:13 07/22/24 05:40 Test 07/22/24 05:40 Range/Units Serum Glucose 74-106 mg/dL Microbiology Date/Time Source Procedure Growth Status 07/19/24 04:00 Nose MRSA Screen - Final Complete 07/19/24 03:29 Sputum Gram Stain - Final Complete 07/19/24 03:29 Sputum Respiratory Culture - Final Complete 07/19/24 03:00 Ascities Fluid Gram Stain - Final Resulted 07/19/24 03:00 Ascities Fluid Body Fluid Culture - Preliminary Resulted 07/18/24 23:30 Blood Blood Culture - Preliminary NO GROWTH AFTER 72 HOURS OF INCUBATION. Resulted Labs and/or images reviewed: Labs reviewed by me, Image(s) reviewed by me Problem List/Assessment/Plan Problem List/Assessment/Plan Acute hypoxic respiratory failure, likely due to massive ascites/pneumonia /aspiration pneumonia Sepsis, likely due to pneumonia Pneumonia, likely due to Gram-positive Gram-negative bacteria/viral Possible COPD exacerbation Chest x-ray shows bilateral lower zone infiltration Abdominal CT scan, showed [id number] bilateral lower lobe consolidation with air bronchogram, likely due to atelectasis/pneumonia/aspiration Sputum/blood/urine culture Influenza type a and B, and COVID-19 are negative MRSA screening Injection Zosyn and doxycycline Injection methylprednisolone 40 mg once Tablet prednisone 40 mg day Breathing treatment q.6 hours as needed Massive ascites, status post paracentesis, taken out similar to Hepatic encephalopathy, today worsened Liver cirrhosis, likely due to alcoholic/Hepatitis Ruled out spontaneous bacterial pneumonitis, ascitic fluid WBCs are 90 ammonia is today raised at 45 Furosemide 80 mg daily Hypoglycemia D5W at 40 mL/hour Alcohol use disorder, patient is counseled for alcohol cessation for more than 21 minutes Hypotension, improved stopped midodrine Hypertension Resume home medicine including carvedilol and amlodipine UTI ESRD on maintenance hemodialysis Hyperkalemia, hyperkalemia protocol given Nephrology is on the board, HD performed today Thrombocytopenia, likely due to liver cirrhosis Improving Mild protein malnutrition Serum albumin is 3.1 Next Severe anemia, microcytic hypochromic Today Hb at 7.9 Iron panel, shows iron-deficiency anemia Fecal occult blood test negative DIET: Renal diet and ensure high-protein 240 mL p.o. t.i.d. DVT PROPHYLAXIS: Because of severe anemia, no anticoagulant is indicated GI PROPHYLAXIS:: Protonix b.i.d. BOWEL REGIMEN: Lactulose 30 mL b.i.d. CODE STATUS: Goal of care discussed for more than 25 minutes, full code DISPOSITION: Telemetry Active smoker: Patient was counseled for risk of smoking and smoking cessation for more than 27 minutes. Patient's status discussed with the patient. Case discussed with Dr. Jauregui Plan discussed with: Patient, Other (RN) My Orders My Orders Orders - MAURICE VILLEGAS Procedure Category Date Status Time Prednisone Tablet PHA 07/23/24 In Process 10:00 CC Plasma Assessment Blood Product Administration S: [id number] MAURICE VILLEGAS Jul 22, 2024 17:34
[2024-07-22 19:39] LABS: Alanine Aminotransferase 21 U/L (7-40); Alkaline Phosphatase 72 U/L (46-116); Anion Gap 8 (5-15); BUN/Creatinine Ratio 10.4 (10.0-20.0); Carbon Dioxide 23 mmol/L (20-31); Chloride 100 mmol/L (98-107); Total Protein 5.7 g/dL (5.7-8.2)
[2024-07-22 19:58] LABS: Blood Urea Nitrogen 63 mg/dL (9-23); Glucose 272 mg/dL (74-106); Sodium 131 mmol/L (136-145)
[2024-07-22 19:59] LABS: Albumin 3.2 g/dL (3.2-4.8); Aspartate Aminotransferase 43 U/L (13-40); Bilirubin, Total 0.2 mg/dL (0.2-1.0)
[2024-07-22 20:13] LABS: Potassium 6.2 mmol/L (3.5-5.1)
[2024-07-22] MEDS: ALBUTEROL SULF 2.5 MG/0.5ML(0.5%) NEB SOLN NEB ONE (20:30)
[2024-07-22] MEDS: SODIUM BICARB 8.4% 50Meq/50ml SYR INJ IV ONE (21:04)
[2024-07-22] MEDS: DEXTROSE (50%) 50ML SYRG IV ONE (21:13)
[2024-07-22] MEDS: InsuLIN REG 1unit/0.01ml Soln (100units/ml) IV ONE (21:25)
[2024-07-22] MEDS: FUROSEMIDE 20 MG/2 ML VIAL IV ONE (21:26)
[2024-07-22] MEDS: SODIUM ZIRCONIUM CYCL 10 GM PAK PO ONE (21:29)
[2024-07-22] MEDS ORDERED: DEXTROSE (50%) 50ML SYRG IV PRN (22:00)
[2024-07-22] MEDS: ACCU-CHEK COMFORT CURVE STRIP VI SCH (23:18)
[2024-07-22] MEDS: InsuLIN REG 1unit/0.01ml Soln (100units/ml) SC SCH (23:20)
[2024-07-23] VITALS (12 sets, daily range): BP systolic 130–139; BP diastolic 73–84; PULSE 74–100; RESP 16–20; TEMP 97.5–97.8; O2SAT 93–100
[2024-07-23] MEDS: EPOETIN ALFA-EPBX 10,000 UNIT/1ML VIAL SC ONE (04:49)
[2024-07-23] MEDS ORDERED: DOXYCYCLINE 100MG/250ML 250 ML IV SCH ×2 (05:00→08:00)
[2024-07-23 07:27] LABS: Mean Corpuscular Hemoglobin 24.1 pg (28.0-32.0)
[2024-07-23 07:29] LABS: Hematocrit 24.6 % (41.0-53.0); Hemoglobin 7.8 g/dL (13.5-17.5); Mean Corpuscular Hgb Conc. 31.9 g/dL (32.0-36.0); Mean Corpuscular Volume 75.5 fL (80.0-100.0); Platelet Count (auto) 129 10^3/uL (140-450); Red Blood Cells 3.26 10^6/uL (4.5-5.90); Red Cell Distribution Width 27.1 % (11.8-14.3)
[2024-07-23 07:38] LABS: White Blood Cell 1.6 10^3/uL (4.4-10.8)
[2024-07-23 07:39] LABS: Band Neutrophils % (manual) 0; Basophils % (manual) 0 (0.0-2.0); Blast Cells 0; Eosinophils % (manual) 0 (0-7); Metamyelocytes % 0; Myelocytes % 0; Promyelocytes % 0; Reactive Lymphocytes 0
[2024-07-23 08:00] LABS: Alanine Aminotransferase 15 U/L (7-40); Alkaline Phosphatase 65 U/L (46-116); Anion Gap 7 (5-15); Aspartate Aminotransferase 39 U/L (13-40); BUN/Creatinine Ratio 7.4 (10.0-20.0); Carbon Dioxide 26 mmol/L (20-31); Chloride 101 mmol/L (98-107); Potassium 4.5 mmol/L (3.5-5.1)
[2024-07-23 08:03] LABS: Bilirubin, Total 0.2 mg/dL (0.2-1.0); Blood Urea Nitrogen 29 mg/dL (9-23); Calcium 8.3 mg/dL (8.7-10.4); Glucose 223 mg/dL (74-106); Sodium 134 mmol/L (136-145); Total Protein 5.7 g/dL (5.7-8.2)
[2024-07-23] MEDS: predniSONE 20 MG TAB PO SCH (10:03)
[2024-07-23] MEDS: DOXYCYCLINE 100MG/250ML 250 ML IV SCH (10:04)
[2024-07-23 11:53] LABS: Anisocytosis Moderate; Hypochromia Slight; Lymphocytes % (manual) 11 (10.0-50.0); Monocytes % (manual) 8 (0-12); Platelet Estimate Decreased; Smudge Cells 1 /100 WBC
[2024-07-23 11:54] LABS: Ovalocytes MODERATE; Stomatocytes Few
[2024-07-23] MEDS: PIPERACILLIN-TAZOB 2.25GM 50 ML IV SCH (12:00)
[2024-07-23] MEDS ORDERED: ALBUMIN 25% 100 ML IV PRN (12:00)
[2024-07-23 12:05] LABS: Hepatitis A Ab IgM Negative; Hepatitis B Core IgM Negative (Negative); Hepatitis B Surface Antigen Negative (Negative)
[2024-07-23 13:29] LABS: Hepatitis C Antibody Reactive (Negative)
--- NOTE | 2024-07-23 16:39 | DVHDSRES ---
Discharge Summary Date of Admission Resident Creating Document: MAURICE VILELGAS RESDINEFTALI Jul 19, 2024 at 01:55 Date of Discharge: Jul 23, 2024 Admitting Diagnosis Acute Hypoxic respiratory failure Labs/Diagnostic Data: Laboratory Results Test 07/23/24 11:35 07/23/24 10:30 07/23/24 05:30 07/22/24 09:17 POC Glucose 299 mg/dl (70-106) Stool Occult Blood Negative (Negative) Stool Occult Blood Sample #3 (Negative) White Blood Count 1.6 10^3/uL (4.4-10.8) Red Blood Count 3.26 10^6/uL (4.5-5.90) Hemoglobin 7.8 g/dL (13.5-17.5) Hematocrit 24.6 % (41.0-53.0) Mean Corpuscular Volume 75.5 fL (80.0-100.0) Mean Corpuscular Hemoglobin 24.1 pg (28.0-32.0) Mean Corpuscular Hemoglobin Concent 31.9 g/dL (32.0-36.0) Red Cell Distribution Width 27.1 % (11.8-14.3) Platelet Count 129 10^3/uL (140-450) Mean Platelet Volume 8.4 fL (6.9-10.8) Neutrophils (%) (Auto) % (37.0-80.0) Lymphocytes (%) (Auto) % (10.0-50.0) Monocytes (%) (Auto) % (0.0-12.0) Basophils (%) (Auto) % (0.0-2.0) Neutrophils # (Auto) 10 ^3/uL (1.6-8.6) Lymphocytes # (Auto) 10 ^3/uL (0.4-5.4) Monocytes # (Auto) 10 ^3/uL (0-1.3) Differential Total Cells Counted 100.0 (100) Neutrophils % (Manual) 81 (37.0-80.0) Band Neutrophils % (Manual) 0 Lymphocytes % (Manual) 11 (10.0-50.0) Monocytes % (Manual) 8 (0-12) Eosinophils % (Manual) 0 (0-7) Basophils % (Manual) 0 (0.0-2.0) Metamyelocytes % (manual) 0 Myelocytes % (Manual) 0 Promyelocytes % (Manual) 0 Blast Cells % (Manual) 0 Reactive Lymphocytes 0 Smudge Cells 1 /100 WBC Platelet Estimate Decreased Hypochromasia (manual) Slight Anisocytosis (manual) Moderate Microcytosis Slight Ovalocytes Moderate Stomatocytes Few Schistocytes Few Sodium Level 134 mmol/L (136-145) Potassium Level 4.5 mmol/L (3.5-5.1) Chloride Level 101 mmol/L (98-107) Carbon Dioxide Level 26 mmol/L (20-31) Anion Gap 7 (5-15) Blood Urea Nitrogen 29 mg/dL (9-23) Creatinine 3.90 mg/dL (0.700-1.30) Glomerular Filtration Rate Calc 17 mL/min (>90) BUN/Creatinine Ratio 7.4 (10.0-20.0) Serum Glucose 223 mg/dL (74-106) Calcium Level 8.3 mg/dL (8.7-10.4) Total Bilirubin 0.2 mg/dL (0.2-1.0) Aspartate Amino Transferase (AST) 39 U/L (13-40) Alanine Aminotransferase (ALT) 15 U/L (7-40) Alkaline Phosphatase 65 U/L (46-116) Total Protein 5.7 g/dL (5.7-8.2) Albumin 3.0 g/dL (3.2-4.8) Hepatitis A IgM Antibody Negative Hepatitis B Surface Antigen Negative (Negative) Hepatitis B Core IgM Antibody Negative (Negative) Hepatitis C Antibody Reactive (Negative) Test 07/22/24 09:13 07/21/24 21:41 07/21/24 20:32 07/21/24 14:39 Eosinophils (%) (Auto) 2.8 % (0.0-7.0) Eosinophils # (Auto) 0.1 10 ^3/uL (0-0.8) Basophils # (Auto) 0 10 ^3/uL (0-0.2) Nucleated Red Blood Cells 0.5 % Ammonia 39 umol/L (11-32) Blood Gas Specimen Type Arterial Blood Gas Sample Site Left radial Blood Gas Patient Temperature 37.0 Arterial Blood Date Drawn [id number] Arterial Blood pH 7.271 (7.350-7.450) Arterial Blood Partial Pressure CO2 52.4 mmHg (35.0-48.0) Arterial Blood Partial Pressure O2 95.2 mmHg (83.0-108.0) Arterial Blood HCO3 23.6 mmol/L (21.0-28.0) Arterial Blood Oxygen Saturation 96.0 % (94.0-98.0) Arterial Blood Base Excess -3.4 mmol/L (-2.0-3.0) Arterial Blood Oxyhemoglobin 94.8 % (94.0-98.0) Arterial Blood Carboxyhemoglobin 0.3 % (0.5-1.5) Arterial Blood Methemoglobin 1.0 % (0.0-1.5) Calvin Test Modified Blood Gas Total Hemoglobin 8.80 g/dL (13.5-17.5) Blood Gas Liter Flow 3.00 Blood Gas Modality Nasal cannula FiO2 % 32.0 Lactic Acid Level 1.3 mmol/L (0.4-2.0) Test 07/21/24 04:27 07/20/24 20:44 07/20/24 06:00 07/20/24 02:40 [place] Cells Few Blood Gas Set Respiration Rate 12.0 Blood Gas Spontaneous Rate 24 Blood Gas Spontaneous Tidal Volume 546 Blood Gas EPAP 6 Blood Gas IPAP 14 Tear Drop Cells Few Poikilocytosis (manual) Slight Test 07/19/24 21:02 07/19/24 20:40 07/19/24 12:12 07/19/24 08:53 Urine Color Yellow (Yellow) Urine Clarity Turbid (Clear) Urine pH 5.5 (5.0-9.0) Urine Specific [place] 1.022 (1.001-1.035) Urine Protein 2+ (Negative) Urine Ketones Trace (Negative) Urine Blood Negative /uL (Negative) Urine Nitrite Negative (Negative) Urine Bilirubin 1+ (Negative) Urine Urobilinogen Normal mg/dL (Negative) Urine Leukocyte Esterase 1+ /uL (Negative) Urine RBC 2 /hpf (0 - 3) Urine WBC 8 /hpf (0 - 3) Urine Squamous Epithelial Cells Few /hpf (<5) Urine Amorphous Crystals Few /hpf (None Seen) Urine Bacteria Few /hpf (None Seen) Urine Mucus Few (None Seen) Urine Creatinine 167.13 mg/dL (30.0-125.0) Urine Protein/Creatinine Ratio 1.55 Urine Sodium 44 mmol/L (40-220) Urine Glucose Normal mg/dL (Normal) Urine Total Protein 258.3 mg/dL (1-14) Urine Opiates Screen Neg (NEGATIVE) Urine Fentanyl Screen Neg (NEGATIVE) Urine Barbiturates Screen Neg (NEGATIVE) Urine Phencyclidine Screen Neg (NEGATIVE) Urine Amphetamines Screen Neg (NEGATIVE) Urine Benzodiazepines Screen Neg (NEGATIVE) Urine Cocaine Screen Neg (NEGATIVE) Urine Cannabinoids Screen Neg (NEGATIVE) Iron Level 26 ug/dL (65-175) Total Iron Binding Capacity 183 ug/dL (250-425) Percent Iron Saturation 14.2 % (20-55) Ferritin 57.3 ng/mL (22-322) Reticulocyte Count (auto) 1.75 % (0.5-1.5) Plasma/Serum Blood Alcohol 5.3 mg/dL (<10) Giant Platelets Few Test 07/19/24 04:00 07/19/24 03:00 07/19/24 02:23 07/19/24 02:22 Influenza Type A Antigen Negative (Negative) Influenza Type B Antigen Negative (Negative) SARS-CoV-2 Antigen (Rapid) Negative (NEGATIVE) Body Fluid Source Ascites fluid Body Fluid pH 8.0 Body Fluid WBC (Manual) 98 CUMM (0-200) Body Fluid RBC (Manual) 0 CUMM (0-2000) Body Fluid Mononuclear Cells 95 % Body Fluid Polymorphonuclear Cells 5 % (0-25) Body Fluid Total Protein 2.8 g/dL (.) Body Fluid Albumin 1.6 g/dL (Not Estab.) Body Fluid Lactate Dehydrogenase 73 IU/L (.) Large Platelets Few Prothrombin Time 11.4 sec (9.3-11.8) Prothrombin Time INR 1.08 (0.9-1.15) Activated Partial Thromboplast Time 29.6 SEC (24.5-34.5) Phosphorus Level 3.2 mg/dL (2.4-5.1) Lactate Dehydrogenase 216 U/L (120-246) Test 07/18/24 23:20 07/18/24 21:41 07/18/24 20:38 Troponin I High Sensitivity 22 ng/L (</=54) B-Type Natriuretic Peptide 1020.58 pg/mL (0-100) Magnesium Level 1.6 mg/dL (1.6-2.6) Other Laboratory Tests 07/23/24 05:30 Brief Hx & Hospital Course: A 58-year-old male with a history of liver cirrhosis (Hepatitis C antibody positive), kidney failure on dialysis, type 2 diabetes mellitus, and suspected heart failure presented to the ED with worsening shortness of breath and abdominal swelling. Two weeks ago, he had 8-9 liters of ascitic fluid removed via paracentesis. A week ago, he was admitted to [facility] for worsening abdominal swelling, but no paracentesis was performed. Over the past week, he experienced flu-like symptoms, including cough with expectoration, chills, and worsening shortness of breath. He lives with his caregiver, smokes about three cigarettes per day, and denies current drug or alcohol use, though he has a history of methamphetamine and IV drug use. His home medications include amlodipine, furosemide, gabapentin, insulin, lactulose, metoprolol succinate, spironolactone, and tramadol. Chest x-ray showed bilateral lower zone infiltration, abdominal CT scan showed moderate to large bilateral lower lobe consolidation with air bronchogram likely due to atelectasis/pneumonia/aspiration and ascites. Treated for the acute hypoxic respiratory failure, likely due to massive ascites/pneumonia/aspiration pneumonia and hepatic encephalopathy. The patient was given empiric antibiotics Zosyn and doxycycline throughout the hospitalization course. For the possible COPD exacerbation the patient was given methylprednisolone and and nebulized. Due to massive ascites, and severe abdominal pain, paracentesis was performed on 7 L of fluid was drained, 50 g of albumin given to the patient. Ammonia was raised, and the patient was given lactulose in addition to the antibiotics. During hospital course the patient also had recurrent hypoglycemia which were corrected by given 50% glucose and D5W. Urinalysis were showing UTI picture which were treated with the antibiotics. During hospital course maintenance hemodialysis were continued electrolyte imbalance including hypokalemia were corrected. Due to severe anemia the patient required 1 time of 1 PRBC. On 07/23, during the new morning 10 the patient was feeling better since admission, but still the patient has shortness of bed and was on 3 L of oxygen through nasal cannula. Later on the patient left AMA. Operations or Procedures [address] [address] Ph: [phone] DIAGNOSTIC IMAGING Diagnostic Imaging Report : [id number] Signed PATIENT: JENY LAW ACCT: [id number] UNIT: [id number] : 1965 LOC: ER ROOM / BED: / AGE / SEX: 58 / M ADM STATUS: REG ER SERVICE 34 ORDERING PHYSICIAN: BOY GAVIRIA MD PROCEDURE(s): ABPL - CT AB PEL WO CON-NO ORAL OR IV REASON: abdominal pain ORDER NUMBER(s): [id number], ACCESSION NUMBER(s): [id number] CLINICAL HISTORY: abdominal pain TECHNIQUE: CT of the abdomen and pelvis was performed without intravenous contrast. This exam was performed according to our departmental dose optimization program. Up-to-date CT equipment and radiation dose reduction techniques are utilized as appropriate. [Radimetrics Exposure Report] WID: COMPARISON: None FINDINGS: Lower Thorax: [id number] bilateral lower lobe consolidations with air bronchograms. Small bilateral pleural effusions. There is mild cardiomegaly. There is hypodensity of the blood pool relative to myocardium indicative of anemia. Tip of a central venous catheter in the upper right atrium. Liver and Biliary system: Small cirrhotic liver. No definite hepatic lesion on noncontrast study. Layering cholelithiasis in a normal caliber gallbladder. There is no biliary ductal dilatation. There are portosystemic collateral vessels. Spleen: Mild splenomegaly. Adrenal Glands and Kidneys: Normal adrenal glands. There are tiny bilateral nonobstructing renal calculi. No hydronephrosis. Pancreas and Retroperitoneum: Mildly atrophic pancreas. No retroperitoneal lymphadenopathy. Mildly prominent there are normal-sized retroperitoneal lymph nodes. Aorta and Major Vessels: Aortoiliac vessels are normal in caliber containing mild calcified atherosclerotic plaque. Bowel, Mesentery and Peritoneal space: Mild wall thickening of the large bowel most pronounced proximally. Normal appendix. There is [id number]-[id number]-qovtb volume ascites. There is no free air or loculated fluid collection. Pelvis: There are dystrophic calcifications in the prostate gland. Urinary bladder is mildly distended. There is no pelvic lymphadenopathy. Abdominal wall and Osseous Structures: There is body wall edema. Multilevel lower thoracic and lumbar spondylosis. Minimal retrolisthesis at L5-S1. No destructive osseous lesion. IMPRESSION: 1. Cirrhosis and portal hypertension with moderate to large volume ascites, mild splenomegaly, and portosystemic collateral vessels. 2. Zrjktzdi-ij-nyrke bilateral lower lobe consolidations with air bronchograms. DDX includes atelectasis and/or pneumonia which could be on the basis of aspiration. 3. Small bilateral pleural effusions and moderate body wall edema. 4. Mild cardiomegaly. 5. Anemia suggested. Correlate with CBC. 6. Cholelithiasis. 7. Nonobstructing bilateral renal calculi. 8. Mild wall thickening of the large bowel most pronounced proximally which could be related to underlying portal hypertension or colitis. ATED BY: VIANEY MUNIZ MD DICTATED DATE/TIME: 07/18/242234 SIGNED BY: VIANEY MUNIZ MD SIGNED DATE/TIME: 07/18/242234 CC: [place] [id number] Ph: [phone] DIAGNOSTIC IMAGING Diagnostic Imaging Report : [id number] Signed PATIENT: JENY LAW ACCT: [id number] UNIT: [id number] : 1965 LOC: TELE ROOM / BED: [address] [place] [address] AGE / SEX: 58 / M ADM STATUS: ADM IN SERVICE 0 ORDERING PHYSICIAN: SHRUTI ORELLANA RESIDENT PROCEDURE(s): HWOCT - HEAD WITHOUT CONTRAST REASON: ALOC ORDER NUMBER(s): [id number], ACCESSION NUMBER(s): [id number] Examination: HWOCT CLINICAL INDICATION: ALOC COMPARISON: None. CONTRAST USED: None. TECHNIQUE: Plain CT examination was performed obtaining 2 mm slices in the axial plane. Sagittal and 3D reconstructions were also obtained. Technique for this CT scan was done using principles of ALARA (As Low As Reasonably Achievable). Multiplanar reconstructions were obtained. FINDINGS: SUPRATENTORIAL BRAIN: Cerebral Hemispheres: Few old lacunar infarcts are seen in bilateral ganglia capsular regions. No obvious focal lesion is seen in the supratentorial region. There is no midline shift or mass effect, intra or extra-axial fluid collections or hemorrhage. Periventricular White Matter/Basal Ganglia: No abnormal areas of altered attenuation within the periventricular white matter or basal ganglia. POSTERIOR FOSSA: The brainstem is normal and the visualized cerebellar hemispheres are unremarkable. VENTRICULAR SYSTEM: There is generalized prominence of ventricular system and cortical sulci, suggestive of cerebral atrophy. There is no evidence of hydrocephalus or transependymal flow of cerebrospinal fluid. SKULL BASE AND PARASELLAR REGION: The skull base is normal with no parasellar masses or abnormalities identified. CALVARIUM AND SCALP REGION: No abnormality is seen. PARANASAL SINUSES: No significant inflammatory changes are identified in the paranasal sinuses. IMPRESSION: 1. Few old lacunar infarcts are seen in bilateral ganglia capsular regions and centrum semiovale. 2. Generalized prominence of ventricular system and cortical sulci, suggestive of cerebral atrophy. Electronically Signed 07/20/2024 04:03 Cuauhtemoc Zamudio ATED BY: ROBB RHODES MD DICTATED DATE/TIME: 07/20/24402 SIGNED BY: ROBB RHODES MD SIGNED DATE/TIME: 07/20/24402 CC: Condition at Discharge: Undetermined Final Diagnosis/Problems List Acute on chronic hypoxic/hypercarbic respiratory failure, likely due to massive ascites/pneumonia /aspiration pneumonia Sepsis, likely due to pneumonia Pneumonia, likely due to Gram-positive Gram-negative bacteria/viral Possible COPD exacerbation Massive ascites, status post paracentesis, taken out similar to Hepatic encephalopathy, today worsened Liver cirrhosis, likely due to alcoholic/Hepatitis Hypoglycemia Alcohol use disorder Hypotension, improved stopped midodrine Hypertension UTI ESRD on maintenance hemodialysis Hyperkalemia Thrombocytopenia, likely due to liver cirrhosis Mild protein malnutrition Severe anemia, microcytic hypochromic Deficiency anemia Upper GI bleeding was excluded Fecal occult blood test was negative Decompensated liver cirrhosis with ascites Acute on chronic diastolic heart failure Diabetes mellitus type 2 primarily respiratory acidosis, likely with secondary metabolic acidosis peripheral neuropathy Possible hepatorenal syndrome Ruled out spontaneous bacterial pneumonitis Discharge Disposition: AMA Discharge Statement: "Patient was advised to return to the ER or call 911 if any headaches, dizziness, shortness of breath, chest pain, abdominal pain, bleeding, fevers, or worsening of medical condition. Patient was counseled about treatment plan, medications, possible side effects, patientverbalized understanding. All questions were answered to the best of my ability. This discharge took greater then 30 minutes in planning, reviewing documentation, counseling the patient, and discussing with other team members." ASSESSMENT ASSESSMENT Assessment MAURICE VILLEGAS Jul 23, 2024 16:39
[2024-07-24] MEDS ORDERED: SODIUM CHL 0.9% 1000 ML BAG XX ONE (07:00)
[2024-07-24] MEDS ORDERED: EPOETIN ALFA-EPBX 10,000 UNIT/1ML VIAL SC ONE (21:00)
--- NOTE | 2024-07-25 14:19 | ECG ---
[facility] Test Date: 2024-07-22 Test Time: 20:39:04 Pat Name: JENY LAW Department: Respiratoy Room: 0234T A Gender: M Pattern Keeper: Kristina : 1965 Requested By: CARLY TRAORE Order Number: [id number] Reading MD: Kameron Pino Measurements Intervals [place] Rate: 69 P: 36 ND: 137 QRS: 29 QRSD: 78 T: -9 QT: 367 QTc: 393 Interpretive Statements Sinus rhythm Low voltage, extremity leads Consider anterior infarct Artifact in lead(s) I,III,aVR,aVL,aVF,V3,V5,V6 Electronically Signed On 07-25-2024 20:53:22 PST by Kameron Pino Please click the below link to view image of tracing.
== END 2024-07-23 14:38 | disposition left against medical advice (07) | DRG 720 ==
LOC: EDBD 20:08 → ER 20:08 → TELE 07-19 01:55 → TELE-EAST 07-22 16:43
PROVIDERS: ADMIT Student in an Organized Health Care Education/Training Program; ATTEND Student in an Organized Health Care Education/Training Program
PROC: 30233N1 Transfusion of Nonautologous Red Blood Cells into Peripheral Vein, Percutaneous Approach (ICD-10-PCS; principal; 2024-07-19)
PROC: 05HF33Z Insertion of Infusion Device into Left Cephalic Vein, Percutaneous Approach (ICD-10-PCS; 2024-07-19)
PROC: B54NZZA Ultrasonography of Left Upper Extremity Veins, Guidance (ICD-10-PCS; 2024-07-19)
PROC: 5A1D70Z Performance of Urinary Filtration, Intermittent, Less than 6 Hours Per Day (ICD-10-PCS; 2024-07-19)
PROC: 5A09357 Assistance with Respiratory Ventilation, Less than 24 Consecutive Hours, Continuous Positive Airway Pressure (ICD-10-PCS; 2024-07-20)
PROC: 5A09357 Assistance with Respiratory Ventilation, Less than 24 Consecutive Hours, Continuous Positive Airway Pressure (ICD-10-PCS; 2024-07-21)
PROC: 5A1D70Z Performance of Urinary Filtration, Intermittent, Less than 6 Hours Per Day (ICD-10-PCS; 2024-07-22)
PROC: 5A1D70Z Performance of Urinary Filtration, Intermittent, Less than 6 Hours Per Day (ICD-10-PCS; 2024-07-23)
DX: A41.59 Other Gram-negative sepsis (principal); K76.7 Hepatorenal syndrome; J96.21 Acute and chronic respiratory failure with hypoxia; J69.0 Pneumonitis due to inhalation of food and vomit; I50.33 Acute on chronic diastolic (congestive) heart failure; K76.82 Hepatic encephalopathy; E44.1 Mild protein-calorie malnutrition; D69.6 Thrombocytopenia, unspecified; E11.649 Type 2 diabetes mellitus with hypoglycemia without coma; K75.9 Inflammatory liver disease, unspecified; J15.9 Unspecified bacterial pneumonia; J12.9 Viral pneumonia, unspecified; J15.69 Pneumonia due to other Gram-negative bacteria; I13.2 Hypertensive heart and chronic kidney disease with heart failure and with stage 5 chronic kidney disease, or end stage renal disease; N18.6 End stage renal disease; E11.22 Type 2 diabetes mellitus with diabetic chronic kidney disease; Z53.29 Procedure and treatment not carried out because of patient's decision for other reasons; Z99.2 Dependence on renal dialysis; E87.5 Hyperkalemia; I95.9 Hypotension, unspecified; N39.0 Urinary tract infection, site not specified; K80.20 Calculus of gallbladder without cholecystitis without obstruction; G62.9 Polyneuropathy, unspecified; D50.9 Iron deficiency anemia, unspecified; F10.10 Alcohol abuse, uncomplicated; J96.22 Acute and chronic respiratory failure with hypercapnia; J44.1 Chronic obstructive pulmonary disease with (acute) exacerbation; K70.31 Alcoholic cirrhosis of liver with ascites; D53.9 Nutritional anemia, unspecified; Z68.28 Body mass index [BMI] 28.0-28.9, adult; Z83.3 Family history of diabetes mellitus; Z79.899 Other long term (current) drug therapy; Y90.9 Presence of alcohol in blood, level not specified
CPT/HCPCS: 36415; 36600; 70450; 71045; 74176; 80048; 80053; 80074; 80307; 80320; 81001; 82140; 82270; 82570; 82728; 82805; 82962; 83540; 83550; 83605; 83615; 83735; 83880; 83986; 84100; 84156; 84300; 84484; 85007; 85014; 85018; 85025; 85027; 85045; 85610; 85730; 86850; 86900; 86901; 86920; 87040; 87070; 87081; 87205; 87340; 87426; 87804; 89051; 90935; 92610; 93005; 93306; 94640; 94660; 96365; 96368; 96375; G0378; J0131; J0692; J1642; J1815; J2470; J2543; J3490; P9047